=== PATIENT | male | born 1960 | race Caucasian/White ===

== ENCOUNTER 2017-07-29 09:52 | Inpatient (IN) | payer MEDICARE, OTHER, MEDICAID ==
[2017-07-29] MEDS ORDERED: Fentanyl 20 MCG/ML 0 ML ONE (09:54)
[2017-07-29] MEDS ORDERED: Fentanyl 100 MCG/2 ML VIAL ONE ×2 (09:55→10:30)
[2017-07-29] MEDS ORDERED: Lorazepam 2 MG/ML VIAL ONE ×2 (10:03→17:16)
[2017-07-29 10:24] LABS: #Basophils 0.1 thou/uL (0.0-0.2); #Lymphocytes 4.6 thou/uL (1.20-3.40); #Monocytes 2.2 thou/uL (0.11-0.59); #Neutrophils 12.8 thou/uL (1.40-6.50); %Basophils 0.7 % (0.0-1.0); %Eosinophils 0.2 % (0.0-10.0); %Lymphocytes 23.1 % (21.0-51.0); %Monocytes 11.1 % (0.0-10.0); Hematocrit 46.3 % (42.0-52.0); Mean Platelet Volume 6.8 fL (7.4-10.4); Red Blood Cell (RBC) Count 4.91 mill/uL (4.70-6.10); White Blood Cell (WBC) Count 19.7 thou/uL (4.8-10.8)
--- NOTE | 2017-07-29 10:27 | RAD ---
PORTABLE CHEST 1 VIEW: Date: 07/29/17 Time: 0926 hours HISTORY: Respiratory failure, dyspnea. FINDINGS/IMPRESSION: Comparison made with exam of 09/18/07. The heart size is borderline. The aorta is tortuous. There is an endotracheal tube with tip just abo ve the level of the clavicular heads. No pneumothoraces or large effusions are seen. There is a prob able infiltrate in the right lung base and the left mid lung. There is gaseous distention of the sto mach. POS: [facility]
[2017-07-29] MEDS ORDERED: cefTRIAXone\\ROCEPHIN 2 GM VIAL ONE (10:30)
[2017-07-29 10:43] LABS: Oxyhemoglobin 65.4 % (94.0-97.0); Sodium 145 mmol/L (135-148)
[2017-07-29 10:44] LABS: Mechanical Tidal Volume 500 ml; Modified Allen's Test NOT DONE; Vent YES
[2017-07-29 10:45] LABS: Mode SIMV
--- NOTE | 2017-07-29 10:50 | RAD ---
PORTABLE CHEST 1 VIEW: Date: 07/29/17 Time: 0953 hours HISTORY: Respiratory failure, sepsis. FINDINGS/IMPRESSION: Comparison made with earlier exam at 0926 hours. Endotracheal tube remains in place. There has been interval placement of a nasogastric tube which ca n be traced into the stomach with tip excluded from the film. There has been placement of a left sub clavian central line with tip in the projection of the SVC. No pneumothoraces are seen. The probable infiltrates in the left mid and lower lung zones are not definitely seen on the current exam. POS: [facility]
[2017-07-29 10:54] LABS: Lactic Acid - Sepsis 6.3 mmol/L (0.5-2.2)
[2017-07-29 10:58] LABS: ALT (SGPT) 21 U/L (8-55); AST (SGOT) 21 U/L (5-34); Alkaline Phosphatase 104 U/L (40-150); Anion Gap 17 mmol/L (10-20); BUN (Urea Nitrogen) 26 mg/dL (8.4-25.7); Bilirubin, Total 0.4 mg/dL (0.2-1.2); Calc. Creatinine Clearance 0 mL/min (70-130); Calcium 8.7 mg/dL (7.8-10.44); Carbon Dioxide 18 mmol/L (22-29); Chloride 110 mmol/L (98-107); Estimated GFR-MDRD 62; Globulin 2.5 g/dL (2.4-3.5); Protein, Total 6.4 g/dL (6.0-8.3)
[2017-07-29] MEDS ORDERED: Norepinephrine 8 MG/0.9% NS 250 ML ONE (10:59)
[2017-07-29] MEDS ORDERED: Cefepime 2 GM in Sodium Chloride 0.9% 100 ML IVPB SCH (11:00)
[2017-07-29 11:17] LABS: Bilirubin Negative (Negative); Blood, Urine Negative (Negative); Glucose, Urine (Dipstick) Negative (Negative); Ketone, Urine Negative (Negative); Nitrite Negative (Negative); Protein, Urine (Dipstick) Negative (Neg-Trace); Urobilinogen 0.2 mg/dL (0.2-1.0)
--- NOTE | 2017-07-29 12:18 | OP ---
DATE OF SERVICE: 07/29/2017 PROCEDURE PERFORMED: Fiberoptic bronchoscopy. PREOPERATIVE DIAGNOSIS: Severe hypoxemia secondary to aspiration a few particles with refractory hy poxemia. POSTOPERATIVE DIAGNOSIS: Severe hypoxemia secondary to aspiration a few particles with refractory h ypoxemia. ANESTHESIA: He received 100 mg succinylcholine prior to the procedure. DESCRIPTION OF PROCEDURE: Procedure was performed with an emergent basis for the hypoxemia. First, his endotracheal tube was changed out. He previously had a 7.0 endotracheal tube in which was not large enough to accommodate the bronchoscope. Using GlideScope for visualization, I have changes th is with an 8-0 endotracheal tube without difficulty. Tube was secured at 25 cm at the lip. A Penta x bronchoscope was then placed down the endotracheal tube through an adapter while the patient was o n 100% oxygen. There were copious food particles which look like oatmeal present in both left and r ight main stem bronchi. These were lavaged with saline and aspirated until no other food particles were visualized. There were no other significant findings noted in the bronchial tree bilaterally. He tolerated the procedure well.
[2017-07-29] MEDS ORDERED: Sedation Protocol FS SCH (12:24)
[2017-07-29] MEDS ORDERED: CCU Electrolyte Replacement 1 EACH FS SCH (12:24)
[2017-07-29] MEDS ORDERED: Vecuronium 10 MG VIAL IVP PRN (12:24)
[2017-07-29] MEDS ORDERED: Sodium Chloride 0.9% 1,000 ML IV SCH (12:24)
[2017-07-29] MEDS ORDERED: Potassium Phosphate 12 MMOL in Sodium Chloride 0.9% 250 ML 250 ML IV PRN (12:30)
[2017-07-29] MEDS ORDERED: CCU ELECTROLYTE REPLACEMENT PROTOCOL FS PRN (12:30)
[2017-07-29] MEDS ORDERED: Magnesium Oxide 400 MG TAB PO PRN (12:30)
[2017-07-29] MEDS ORDERED: Magnesium 2 GM/NS 0.9% 100 ML 2 GM in Premix Bag 1 BAG IVPB PRN (12:30)
[2017-07-29] MEDS ORDERED: Potassium Chloride 20 MEQ TAB PO PRN (12:30)
[2017-07-29] MEDS ORDERED: Potassium Chloride 40 MEQ in Premix Bag 1 BAG IVPB PRN (12:30)
[2017-07-29] MEDS ORDERED: Potassium Phosphate 15 MMOL in Sodium Chloride 0.9% 250 ML 250 ML IV PRN (12:30)
[2017-07-29] MEDS ORDERED: Potassium Phosphate 9 MMOL in Sodium Chloride 0.9% 100 ML IVPB PRN (12:30)
[2017-07-29] MEDS ORDERED: Potassium Chloride 40 MEQ in Sodium Chloride 0.9% 250 ML 250 ML IVPB PRN (12:30)
[2017-07-29] MEDS ORDERED: Morphine 2 MG/ML SYRINGE IVP PRN (12:31)
[2017-07-29] MEDS ORDERED: Lorazepam 2 MG/ML VIAL SLOW IVP PRN (12:31)
[2017-07-29] MEDS ORDERED: DISCONTINUE PREVIOUS NARCOTIC PAIN MEDICATIONS AND BENZODIAZEPINES FS SCH (12:31)
[2017-07-29] MEDS ORDERED: Fentanyl 20 MCG/ML 250 ML IVPB SCH (12:31)
--- NOTE | 2017-07-29 12:43 | CON ---
DATE OF CONSULTATION: 07/29/2017 This is 45 minutes critical care time not including time spent performing bronchoscopy. CONSULTING PHYSICIAN: [facility] Res[facility] Service. REASON FOR CONSULTATION: Critical care management. HISTORY OF PRESENT ILLNESS: The patient is a 56-year-old male who presented to the emergency room i n status epilepticus. He had been intubated in the field. He had aspirated gastric contents. He w as significantly hypoxemic and was requiring vasopressors for shock. PAST MEDICAL HISTORY: 1. Klinefelter syndrome. 2. Seizure disorder. 3. Pancreatic pseudocyst. 4. Hypospadias. 5. Venous stasis. 6. Arthritis. 7. Hyperlipidemia. 8. Hypothyroidism. 9. Mental retardation. PAST SURGICAL HISTORY: 1. Bilateral arthrodesis of the feet. 2. Pancreatic pseudocyst drainage. 3. Pancreatic cyst jejunostomy. ALLERGIES: LEVAQUIN. MEDICATIONS PRIOR TO ADMISSION: Unavailable for review at this time. FAMILY MEDICAL HISTORY: Remarkable for hypertension, mitral valve prolapse, ulcerative colitis, hyp ertension and coronary artery disease. SOCIAL HISTORY: Nonsmoker. Does not consume alcohol. He is unemployed. REVIEW OF SYSTEMS: Cannot be obtained as the patient is intubated. PHYSICAL EXAMINATION: VITAL SIGNS: Blood pressure running generally in the 90s over 50s, pulse 118, respirations 22 and O 2 sat 93% on 100% oxygen. GENERAL: The patient is a tall male. He was currently intubated and on some sedation. HEENT: Pupils react. Sclerae are anicteric. Oropharynx: He has dark gastric contents in the orop harynx, which had to be suctioned along with copious food particles. NECK: Without adenopathy, JVD or bruits. LUNGS: Coarse breath sounds bilaterally without wheezing. CARDIAC: S1, S2 tachycardic with a 2/6 systolic murmur. ABDOMEN: Soft. No hepatosplenomegaly. EXTREMITIES: No clubbing, cyanosis or edema. LABORATORY AND X-RAY FINDINGS: White blood cell count 19.7, hematocrit 46.3 and platelet count 201. PH of 7.09, pCO2 of 77, pO2 of 45 that was on SIMV rate 22, tidal volume 500, PEEP 5, pressure sup port 10 and FiO2 of 50%. Sodium 141, potassium 4.3, chloride 110, CO2 of 18, BUN 26, creatinine 1.2 , glucose 214 and lactate 6.3. CPK result is pending. Urinalysis was negative. Tox screen showed Dilantin level was 15. Chest x-ray showed bibasilar infiltrates on the first x-ray. ASSESSMENT: 1. Acute respiratory failure related to aspiration of gastric contents. 2. Aspiration pneumonitis. 3. Seizure disorder. 4. Klinefelter syndrome. 5. Multiple other medical problems as listed above. 6. Lactic acidosis, which is probably secondary to prolonged seizure episode. PLAN: 1. IV hydration. 2. Mechanical ventilation. 3. Broad spectrum IV antibiotics to include aspiration coverage. 4. Consider alkalizing IV fluids. The CPK is significantly elevated. 5. Would obtain Neurology consultation.
--- NOTE | 2017-07-29 13:13 | CT ---
HEAD CT WITHOUT CONTRAST: Date: 07-29-17 Comparison: 09-24-15 History: Intubated patient. Seizures. Fever. Technique: Serial axial CT imaging at 5 mm intervals from vertex through the skull base without cont rast. FINDINGS: There is marked diffuse calvarial thickening. Bilateral frontal sinuses are enlarged. There is mild mucosal thickening of bilateral ethmoid air cells. No acute osseous abnormality. There is no intracr anial hemorrhage, midline shift, of mass effect. No significant interval change. IMPRESSION: Stable head CT. No acute findings. POS: [facility]
[2017-07-29] MEDS: Piperacillin/Tazobactam 3.375 GM, Admixture Fee 1 EACH in Sodium Chloride 0.9% 100 ML IVPB SCH ×3 (13:30→23:16)
[2017-07-29] MEDS: SODIUM CHLORIDE IVPB SCH ×3 (13:31→23:09)
[2017-07-29] MEDS: ADMIXTURE FEE IVPB SCH ×3 (13:31→23:09)
[2017-07-29] MEDS: ASCORBIC ACID IVPB SCH ×3 (13:31→23:09)
[2017-07-29 14:58] LABS: Oxyhemoglobin 96.2 % (94.0-97.0)
[2017-07-29 14:59] LABS: Sodium 146 mmol/L (135-148)
[2017-07-29 15:00] LABS: Mechanical Tidal Volume 450 ml; Mode SIMV.PSV; Modified Allen's Test NOT DONE; Pressure Support 10 cmH2O; Vent YES
[2017-07-29] MEDS ORDERED: Sodium Chloride 0.9% 500 ML IV SCH ×2 (15:00→22:00)
[2017-07-29] MEDS: Norepinephrine 8 MG/0.9% NS 250 ML IVPB SCH ×2 (15:31→23:07)
[2017-07-29 15:44] LABS: Magnesium 1.4 mg/dL (1.6-2.6); Phosphorus 2.2 mg/dL (2.3-4.7)
[2017-07-29] MEDS: Propofol 1,000 MG/100 ML VIAL IV PRN (19:45)
[2017-07-29] MEDS: Magnesium Oxide 400 MG TAB PO PRN ×2 (19:57→23:04)
[2017-07-29] MEDS: Fosphenytoin Sodium 200 MG in Sodium Chloride 0.9% 50 ML IVPB SCH (20:00)
[2017-07-29] MEDS: Thiamine HCl 200 MG, Admixture Fee 1 EACH in Sodium Chloride 0.9% 50 ML IVPB SCH (20:07)
[2017-07-29 20:59] LABS: Lactic Acid - Sepsis 4.6 mmol/L (0.5-2.2)
[2017-07-29] MEDS: Vancomycin HCl 1 GM in Premix Bag 1 BAG IVPB SCH (21:19)
[2017-07-29] MEDS: Sodium Chloride 0.9% 1,000 ML IV SCH (22:18)
--- NOTE | 2017-07-29 23:40 | HP ---
DATE OF SERVICE: 07/29/2017 CHIEF COMPLAINT: Seizure. HISTORY OF PRESENT ILLNESS: The patient is a 56-year-old, male with a significant past medical history of Klinefelter syndrome, mental retardation, seizure disorder, hypothyroidism, and hyperlipidemia, who was brought to the ER via EMS for prolonged seizure. The patient began having a seizure about 25 minutes before EMS arrived to the house and was given IM Versed without improvement of the seizure. The patient was intubated en route and also had an IO catheter placed for access by EMS. The patient's sats never got above the low 80s in spite of intubation. He was noted to have an initial temperature of 105.3 rectally and initial blood pressure of 156/78. The patient was given rectal Tylenol and his temperature improved. The patient was known to aspirate during the seizure. Family noted that he had complained about being cold the night before, had no other significant symptoms. He is on Dilantin and follows with Dr. Mendez for his seizures. Once in the ER, the patient was given fluids. Dr. Prieto was consulted, who changed out his ET tube, and his sats improved into the low 90s. During changing of the ET tube, it was noted that he had gastric contents in his airway. Central line was placed and the patient was started on Levophed, has systolic blood pressures dropped down into the 70s , and the patient was tachycardic. The patient's initial white count was 19.7 and initial pH was 7.09. The patient is being admitted to the Intensive Care Unit for broad-spectrum antibiotics, septic shock and acute hypoxic respiratory failure with aspiration. For the complete history and physical exam, please see the resident's dictation. LABORATORY: 1. CBC: WBCs 19.7, hemoglobin 15.3, hematocrit 46.3, platelet count 201. 2. Initial ABG: A pH of 7.09, pCO2 of 77.1, pO2 of 45.6. 3. CMP: Sodium 141, potassium 4.3, chloride 110, bicarbonate 18, BUN 26, creatinine 1.21, glucose 214, calcium 8.7, total bilirubin 0.4, AST 21, ALT 21, alkaline phosphatase 104, total protein 6.4, albumin 3.9. 4. CK 93. 5. Phosphorus 2.2, mag 1.4. 6. Lactic acid 6.3. 7. Urinalysis unremarkable. 8. Phenytoin 15. IMAGIN. Chest x-ray showed a probable infiltrate in the right lung base and the left mid lung. 2. CT of the brain shows no acute findings. ASSESSMENT AND PLAN: 1. Acute hypoxic respiratory failure secondary to aspiration: The patient is intubated and med management will be per Pulmonology. The patient will be treated with broad spectrum antibiotics and fluids. We will repeat chest x- rays and follow his ABG. 2. Septic shock secondary to pneumonia and possible urinary tract infection: Patient has had blood and urine cultures. We have placed him on broad-spectrum antibiotics. Patient will be supported with IV fluids and pressors. We will try to wean as well as tolerated. 3. Aspiration pneumonitis: Treatment as mentioned above. 4. Status epilepticus: The patient's seizures have stopped. Dr. Mendez will be consulted. P.r.n. medications will be in place for further seizures. 5. Hypothyroidism: Check TSH. 6. Klinefelter syndrome. 7. Electrolyte abnormalities: We will replace mag and phos, we will continue to monitor these. Please see the resident's dictation for the full history and physical, assessment and plan. FERNANDO
[2017-07-30] MEDS: Propofol 1,000 MG/100 ML VIAL IV PRN ×5 (00:37→20:41)
[2017-07-30] MEDS ORDERED: Sodium Chloride 0.9% 1,000 ML IV SCH (02:00)
[2017-07-30] MEDS: Norepinephrine 8 MG/0.9% NS 250 ML IVPB SCH ×2 (04:16→13:53)
[2017-07-30] MEDS: Sodium Chloride 0.9% 1,000 ML IV SCH ×3 (04:18→17:47)
[2017-07-30] MEDS: SODIUM CHLORIDE IVPB SCH ×4 (05:09→23:41)
[2017-07-30] MEDS: ASCORBIC ACID IVPB SCH ×4 (05:09→23:41)
[2017-07-30] MEDS: ADMIXTURE FEE IVPB SCH ×4 (05:09→23:41)
[2017-07-30] MEDS: Piperacillin/Tazobactam 3.375 GM, Admixture Fee 1 EACH in Sodium Chloride 0.9% 100 ML IVPB SCH ×4 (05:10→23:43)
[2017-07-30 05:57] LABS: #Lymphocytes 1.5 thou/uL (1.20-3.40); #Monocytes 1.2 thou/uL (0.11-0.59); #Neutrophils 8.7 thou/uL (1.40-6.50); %Basophils 0.1 % (0.0-1.0); %Eosinophils 0.1 % (0.0-10.0); %Lymphocytes 12.9 % (21.0-51.0); %Monocytes 10.6 % (0.0-10.0); Hematocrit 40.8 % (42.0-52.0); White Blood Cell (WBC) Count 11.4 thou/uL (4.8-10.8)
--- NOTE | 2017-07-30 06:06 | HP-2 ---
DATE OF ADMISSION: 07/29/2017 CODE STATUS: FULL. PRIMARY CARE PHYSICIAN: Ashu Ramirez M.D. ATTENDING: Barbara Allison M.D. RESIDENT: Manjula Villela MD HISTORIAN: Mother and father. SPECIALISTS: Dr. Mendez is the patient's neurologist. CHIEF COMPLAINT: Seizure. HISTORY OF PRESENT ILLNESS: This is a 56-year-old male with past medical history of Klinefelter syndrome and seizure disorder, who presented by EMS after a seizure lasted about 40 minutes. The patient told his mom around 7:30 this morning that he did not feel well, his stomach hurts, and he felt cold all over, so he went to lie down on the couch. Shortly after that, he began having a seizure. His mom gave him 0.7 mg of midazolam which normally terminates his seizures; however, when it did not, she gave him a second dose. At this point, when his seizure did not resolve, she called the EMS. EMS gave him Versed and then they were concerned about aspiration, so they gave him rocuronium and etomidate and intubated him. In the ER, the patient was still having some seizure-like activity and was found to be hypotensive and had a temperature of 105.3 so he was given Ativan 2 mg x2, normal saline 30 mg/kg bolus, 1 gram of Tylenol, 50 mcg of fentanyl, 2 grams of cefepime, 100 mg of succinylcholine, 2 mcg per minute of Levophed, 2 grams of Rocephin, 1 g of vancomycin, and 50 mg of fentanyl. A left subclavian central line was placed. PAST MEDICAL HISTORY: 1. Klinefelter syndrome. 2. Seizure disorder. 3. Pancreatic pseudocyst. 4. Hypospadias. PAST SURGICAL HISTORY: Cystojejunostomy and Alberto-en-Y. ALLERGIES: 1. LEVAQUIN, GI upset. 2. RED DYE, hives. MEDICATIONS: 1. Lipitor 40 mg p.o. at bedtime. 2. Celebrex 200 mg p.o. daily. 3. Clobazam 10 mg p.o. at bedtime. 4. Docusate 240 mg p.o. at bedtime. 5. Folic acid 400 mcg p.o. daily. 6. Krill oil 100 mg p.o. daily. 7. Synthroid 100 mcg p.o. daily. 8. Midazolam 1 mL IV. 9. Multivitamin 1 each p.o. daily. 10. Phenytoin 100 mg take 2 capsules in the morning, 1 capsule at noon, 2 capsules in the evening. 11. MiraLax 17 grams p.o. daily. 12. Seroquel 25 mg p.o. b.i.d. 13. Effexor XR 37.5 mg p.o. daily. 14. Benefiber 2 tablespoons p.o. daily. 15. Zonegran 300 mg p.o. at bedtime. FAMILY HISTORY: Mother, hypertension, mitral valve prolapse, breast cancer, ulcerative colitis. Father, coronary artery disease, greater than 55 years old hypertension. SOCIAL HISTORY: Denies tobacco, alcohol, or drug use. Unmarried. REVIEW OF SYSTEMS: Unable to obtain as the patient is intubated and had been sedated. Parents denied any review of systems except those mentioned in the HPI. PHYSICAL EXAMINATION: VITAL SIGNS: Blood pressure 94/47, pulse 108, respiratory rate 28, temperature 105.3, pulse ox 92% on ventilator. Current weight 104 kilograms. GENERAL: Not alert or oriented, obese, not appropriately interactive. EYES: Pupils equal, round, reactive to light. ENT: Nasal mucosa and oropharynx within normal limits. Tubes in place in the mouth. NECK: Supple. No lymphadenopathy. CARDIOVASCULAR: Regular rate and rhythm. No murmurs or gallops, 2+ radial and pedal pulses. RESPIRATORY: Ventilated. No retractions. Clear to auscultation bilaterally. SKIN: Cold. No cyanosis. Stasis dermatitis on bilateral feet. ABDOMEN: Soft, nontender, normoactive bowel sounds. No mass or distention. EXTREMITIES: No clubbing, cyanosis, or edema. MUSCULOSKELETAL: Structure and tone within normal limits. PSYCHIATRIC: Not appropriate as the patient is unable to assess. LABORATORY DATA: WBC 19.7, hemoglobin 15.3, hematocrit 46.3, platelets 201. Sodium 141, potassium 4.3, chloride 110, CO2 18, BUN 26, creatinine 1.2, GFR 62 , glucose 214, calcium 8.7, total protein 6.4, albumin 3.9, total bilirubin 0.4 , AST 21, ALT 21, alkaline phosphatase 104. Lactic acid 6.3. CK 93. ABG: PH 7.09, pCO2 77.1, pO2 45.6, bicarbonate 22.8. Phenytoin 15. Chest x-ray, possible infiltrate in right lower base and left mid lung, gaseous distention of stomach. Infiltrates resolved on repeat chest x-ray. ASSESSMENT AND PLAN: This is a 56-year-old male who presents with: 1. Septic shock requiring Levophed despite 30 mg/kg fluid resuscitation. No source identified. The patient febrile to 105 on admission with a white count of 19.7, no left shift, or elevated neutrophils. Lactic acid elevation likely secondary to seizure. The patient has remained tachycardic and hypotensive. Levophed at 30. We will consider adding a second pressor at this point. Dr. Prieto has been consulted with Pulmonary, appreciate recommendations, vancomycin and Zosyn, and we will get blood cultures x2. We will add another 500 mL bolus. 2. Status epilepticus, now resolved status post Ativan, midazolam, Versed. The patient on phenytoin at home, level is therapeutic. Dr. Mendez is neurologist. We will have the patient follow up outpatient. 3. Aspiration. The patient had concern for aspiration by EMS. A bronchoscopy was done by Dr. Prieto in the ED revealed aspiration particles below the level of the ET tube. We will cover with vancomycin and Zosyn. We will keep intubated on a ventilator at least overnight. 4. Elevated lactic acid, likely secondary to seizure. We will trend a repeat in 6 hours. 5. Leukocytosis secondary to sepsis versus seizure. We will monitor. 6. Respiratory acidosis likely secondary to decreased ventilation and aspiration on ventilator. We will monitor. 7. Acute kidney injury. Got 4 liters normal saline in the ED. Giving 100 mL per hour of normal saline. We will give another 500 mL bolus and monitor. 8. Venous thromboembolism prophylaxis. Lovenox. DISPOSITION: Admit to ICU. Symptomatic medication will be provided. History and physical exam, as well as management, was discussed with Dr. Allison. FERNANDO
--- NOTE | 2017-07-30 06:59 | PDOC.FM ---
Addendum entered and electronically signed by Margaret Ramires MD 07/30/17 11:56: PPX: Lovenox and pepcid NPO status as OG tube still having small output on suction but will consult Dietitian and try to start tube feeds later today Original Note: - Subjective Subjective: Patient is overall improving overnight. He is now sedated on propofol and his blood pressure is tolerating it well. No concerns from agitation or vital sign standpoint from nursing or family. - Objective MAR Reviewed: Yes Vital Signs & Weight: Vital Signs (12 hours) Temp Pulse Resp Pulse Ox 07/30/17 06:00 10 L 07/30/17 04:00 99.4 F 24 H 07/30/17 02:10 94 26 H 95 07/30/17 02:00 25 H 07/30/17 00:00 98.7 F 07/29/17 23:33 25 H 07/29/17 22:00 26 H 07/29/17 21:34 107 H 32 H 94 L 07/29/17 20:00 98 F 107 H 32 H 92 L 07/29/17 19:00 98.9 F Weight Weight 110.2 kg Most Recent Monitor Data Heart Rate from ECG 96 NIBP 127/63 NIBP BP-Mean 76 Respiration from ECG 3 SpO2 98 I&O: 07/28/17 07/29/17 07/30/17 06:59 06:59 06:59 Intake Total 5880 Output Total 1875 Balance 4005 Result Diagrams: 07/30/17 01:10 07/30/17 05:40 EKG Reviewed by me: Yes Radiology Reviewed by me: Yes <Margaret Ramires - Last Filed: 07/30/17 11:33> - Objective Vital Signs & Weight: Vital Signs (12 hours) Temp Pulse Resp Pulse Ox 07/30/17 14:00 24 H 07/30/17 13:27 98 07/30/17 12:00 24 H 07/30/17 11:52 99.4 F 07/30/17 11:17 99 07/30/17 11:15 97 24 H 98 07/30/17 10:00 24 H 07/30/17 08:00 24 H 07/30/17 07:45 100.7 F H 94 24 H 97 07/30/17 07:25 94 07/30/17 07:00 100.7 F H 07/30/17 06:00 10 L 07/30/17 04:00 99.4 F 24 H Weight Admit Weight 109.769 kg Weight 110.2 kg Most Recent Monitor Data Heart Rate from ECG 90 NIBP 89/52 NIBP BP-Mean 64 Respiration from ECG 24 SpO2 98 I&O: 07/29/17 07/30/17 07/31/17 06:59 06:59 06:59 Intake Total 5880 Output Total 0183 549 Balance 4005 -549 Result Diagrams: 07/30/17 01:10 07/30/17 05:40 <Mukund Rogers - Last Filed: 07/30/17 15:25> Phys Exam - Physical Examination Constitutional: NAD sedated on propofol HEENT: PERRLA, moist MMs, sclera anicteric Neck: no nodes Respiratory: no wheezing, clear to auscultation bilateral Cardiovascular: RRR faint systolic murmur Gastrointestinal: soft, non-tender, no distention, positive bowel sounds Musculoskeletal: no edema, pulses present Neurological: non-focal sedated, PERRL Lymphatic: no nodes Skin: no rash Deviation from normal: darkening of skin likely related to venous insufficiency noted on BLE, L>R -: present on admission and no change at this time <Margaret Ramires - Last Filed: 07/30/17 11:33> Dx/Plan (1) Septic shock Code(s): A41.9 - SEPSIS, UNSPECIFIED ORGANISM; R65.21 - SEVERE SEPSIS WITH SEPTIC SHOCK Status: Acute (2) Epilepsy symptomatic, generalized Code(s): G40.409 - OTH GENERALIZED EPILEPSY, NOT INTRACTABLE, W/O STAT EPI Status: Chronic (3) Hyperlipidemia Code(s): E78.5 - HYPERLIPIDEMIA, UNSPECIFIED Status: Chronic (4) Hypothyroidism Code(s): E03.9 - HYPOTHYROIDISM, UNSPECIFIED Status: Chronic (5) Klinefelter syndrome Code(s): Q98.4 - KLINEFELTER SYNDROME, UNSPECIFIED Status: Chronic (6) Acute kidney injury Code(s): N17.9 - ACUTE KIDNEY FAILURE, UNSPECIFIED Status: Acute (7) Constipation Code(s): K59.00 - CONSTIPATION, UNSPECIFIED Status: Chronic - Plan Plan: 1. Septic shock - At this time, confusing picture as patient had pulmonary infiltrate on admission which quickly resolved - Possible viral infection lowered seizure threshold and patient subsequently had prolonged seizure leading to fever and hemodynamic instability. Appreciate Dr. Mendiola's input on whether LP is indicated at this time. Patient complaining of abdominal pain morning of admission, no other symptoms. - Vitals improving and stable overnight on downtrending Levophed, now at 15 mcg/ min - s/p 4L NS bolus in ER and total of 2L overnight with smaller boluses - UOP adequate, > 100 mL/hr overnight - I/O 5880/1875 - Treated as CAP at this time and monitoring for other signs of infection - Blood and urine cultures pending - Vanc (07/30) and Zosyn (07/30) - NS now at 100 mL/hr - WBC downtrending, increase in neutrophil predominance today - Lactic acidosis now downtrending - AM ABG still mild acidosis, likely predominately metabolic at this time - KUB this morning and will consider CT A/P pending results, serial abdominal exams and bowel movements 2. Seizure disorder - Unclear from records if partial seizures or grand mal - Will notify Dr. Mendez, patient's neurologist, of admission - Dilantin level therapeutic, continue IV tx of home regimen - Appreciate Dr. Mendiola's assistance 3. Klinefelter's Syndrome - Patient has moderate intellectual disability and short term memory loss at baseline - He is able to communicate basic needs and participate in his care but requires time study observer caregiver at baseline 4. HLD - Holding statin at this time - Resume when tolerating PO 5. Hypothyroidism - TSH WNL - Holding levothyroxine at this time but will resume IV within 5 days of admission if not tolerating PO 6. Acute Kidney Injury - BUN/CR > 20 on admission, likely prerenal - Improving with fluid resuscitation <Margaret Ramires - Last Filed: 07/30/17 11:33> Attending Addendum - Attending Addendum I personally evaluated the patient and discussed the management with Dr. Ramires. I agree with the History, Examination, Assessment and Plan documented above with any addition or exceptions noted below. Consideration for LP was given, but it would not change current management, and there was no history to suggest viral or bacterial meningitis prior to seizure and aspiration. Continue antibiotics, wean pressor, wean from sedation and vent. Neuro consult pending. Appreciate Dr Prieto's care and expertise. <Mukund Rogers - Last Filed: 07/30/17 15:25>
[2017-07-30 07:45] LABS: Anion Gap 15 mmol/L (10-20); BUN (Urea Nitrogen) 23 mg/dL (8.4-25.7); Calc. Creatinine Clearance 125 mL/min (70-130); Calcium 7.3 mg/dL (7.8-10.44); Carbon Dioxide 16 mmol/L (22-29); Chloride 116 mmol/L (98-107); Estimated GFR-MDRD 74
[2017-07-30 07:47] LABS: Oxyhemoglobin 90.5 % (94.0-97.0)
[2017-07-30 07:48] LABS: Mechanical Tidal Volume 450 ml; Mode SIMV; Peep/CPAP 12.5 cmH2O; Pressure Support 10 cmH2O; Sodium 145 mmol/L (135-148); Vent YES
--- NOTE | 2017-07-30 08:21 | PRG ---
DATE OF SERVICE: 07/30/2017 Thirty-five minutes critical care time. The patient remains intubated on mechanical ventilation. PHYSICAL EXAMINATION: VITAL SIGNS: His temperature 100.7 with temperature as high as 105 yesterday, pulse 97, blood press ure 103/55, O2 saturation 96%, respiratory rate 24. He is currently on Levophed at 15 mcg per minut e. Total intake for 24 hours 5880, output 1875. HEENT: Pupils react. Oropharynx, endotracheal tube and orogastric tube in place. NECK: No JVD. LUNGS: Fairly clear anteriorly. CARDIOVASCULAR: S1, S2 regular. ABDOMEN: Soft, without tenderness. EXTREMITIES: No edema. LABORATORY DATA: White blood cell count 11.4 down from 19.7, hematocrit 40.8, platelet count 158, p H 7.26, pCO2 41, pO2 58 on SIMV rate 20, tidal volume 450, PEEP 12.5, pressure support 10, FiO2 65%. Chemistry result is pending. Lactate is 4.8. ASSESSMENT: 1. Septic shock. 2. Acute respiratory failure. 3. Aspiration pneumonia. 4. Status epilepticus. 5. Mental retardation. 6. Klinefelter's syndrome. PLAN: 1. He is not weanable at this time secondary to hypoxemia. 2. Wean vasopressor as tolerated. 3. Continue the IV antibiotics. 4. Continue vitamin C, hydrocortisone and Thiamine. 5. Update parents later today.
[2017-07-30] MEDS: Vancomycin HCl 1 GM in Premix Bag 1 BAG IVPB SCH ×2 (09:27→20:32)
[2017-07-30] MEDS: Thiamine HCl 200 MG, Admixture Fee 1 EACH in Sodium Chloride 0.9% 50 ML IVPB SCH ×2 (09:28→20:30)
[2017-07-30] MEDS: Fosphenytoin Sodium 200 MG in Sodium Chloride 0.9% 50 ML IVPB SCH ×2 (09:28→20:30)
--- NOTE | 2017-07-30 09:53 | RAD ---
ABDOMEN TWO VIEWS: History: 56-year-old male with abdomen pain. FINDINGS: NG tube extends into the stomach. Minimal parenchymal changes noted in the visualized lung bases. Th ere are a few scattered air fluid level but no evidence for overt large or small bowel obstruction. There is no evidence for free intraperitoneal air. There is a possible minimally dilated focal small bowel loop with an air fluid level. This could raise the possibility of some focal partial small gerald wel obstruction. IMPRESSION: NG tube in place. There is one loop of bowel with air fluid level within it within the central abdom en which could be a focally dilated loop of small bowel which would raise concern for the possibilit y of a partial small bowel obstruction. No evidence for free intraperitoneal air. Bilateral patchy i nterstitial and alveolar pulmonary and parenchymal changes in the visualized lung zones. POS: [facility]
[2017-07-30] MEDS: Fosphenytoin Sodium 100 MG in Sodium Chloride 0.9% 50 ML IVPB SCH (11:44)
[2017-07-30] MEDS ORDERED: Fosphenytoin Sodium 100 MG in Sodium Chloride 0.9% 50 ML IVPB SCH (12:00)
[2017-07-30] MEDS ORDERED: Mineral Oil ENEMA PR SCH (18:15)
[2017-07-30 20:16] LABS: Lactic Acid - Sepsis 2.1 mmol/L (0.5-2.2)
--- NOTE | 2017-07-31 00:22 | CON ---
DATE OF CONSULTATION: 07/30/2017 REFERRING PROVIDER: Dr. Margaret Ramires. REASON FOR CONSULTATION: Recurrent seizures. HISTORY OF PRESENT ILLNESS: Mr. Bryson is a 56-year-old male with a history of Klinefelte r syndrome and epilepsy, presented with recurrent seizures. [facility] is [facility] as there are no family member present at bedside. As mentioned earlier, patient has a his tory of Klinefelter syndrome and epilepsy. He has been managed by Dr. Kale Mendez for his seizure disorder. He is currently on zonisamide 300 mg at bedtime, Dilantin 200 mg twice a day and clobazam 10 mg at bedtime. He apparently had called his mother around 7:30 yesterday morning and complained that he did not fee l well and he felt cold all over and he was having stomachache. When she went to go check on him, s he noticed that he started having seizure. She gave him 0.7 mg midazolam which usually helps to ter minate his seizures; however, as it did not, she gave him another dose and called EMS. On arrival t o the EMS, the patient was noted to be hypotensive and had a fever of 105.3. He had to be intubated on site to protect his airways and then brought over here. He continued to have small seizure-like episodes intermittently on yesterday evening and night. I am being asked to further provide recomm endations for his seizures. PAST MEDICAL HISTORY: Significant for a history of Klinefelter syndrome, seizure disorder, pancreat ic pseudocyst and hypospadias. PAST SURGICAL HISTORY: Significant for cystojejunostomy and Alberto-en-Y. CURRENT MEDICATIONS: Please review MAR. ALLERGIES: Include LEVAQUIN AND RED DYE. FAMILY HISTORY: None contributory. SOCIAL HISTORY: He does not smoke cigarettes, drink alcohol, or use illicit drugs. REVIEW OF SYSTEMS: Unable to obtain. PHYSICAL EXAMINATION: VITAL SIGNS: Blood pressure of 99/58, pulse of 103, temperature of 100.5, respirations of 24, O2 sa ts of 98%. GENERAL: Intubated, sedated male in no apparent distress. RESPIRATORY: Clear to auscultation, without contrast. CARDIOVASCULAR: Regular rate and rhythm. NEUROLOGIC: Mental status: The patient is intubated and sedated. He does not respond to verbal or noxious stimuli. Cranial nerves: Pupils are 3 mm and reactive. He does breathe over the ventilat or machine. There is a positive corneal reflexes present bilaterally. Motor exam showed flaccid bi lateral upper and lower extremities, no response to sternal rub or nail bed pressure in both upper a nd lower extremities. Babinski: Plantar responses equivocal bilaterally. LABORATORY DATA: I reviewed which included CBC, BMP, lactic acid, CPK, urinalysis and Dilantin leve l which is significant for WBC of 11.4, hemoglobin 13.6, hematocrit 40.8, glucose of 217, lactic aci d of 3.8, magnesium 1.2. Dilantin level 11.8, otherwise unremarkable. IMAGING STUDIES: CT head without contrast was reviewed, which showed no acute intracranial abnormal ity. IMPRESSION: 1. Recurrent seizures. 2. History of Klinefelter syndrome. 3. Fever of unknown origin. ASSESSMENT AND PLAN: Mr. Bryson is a 56-year-old male with a history of Klinefelter syndr ome and seizure disorder, presented with the recurrent seizures. He was also noted to have a very h igh grade fever with sepsis. At this time, I will recommend continuing current antiepileptic medica tions. I would recommend obtaining a lumbar puncture under fluoroscopy. I will recommend obtaining CSF glucose, protein, cell count and differentials, Gram stain culture for further evaluation. Ramses gaytan current medical management. Thank you for the consultation.
[2017-07-31] MEDS: Propofol 1,000 MG/100 ML VIAL IV PRN ×4 (02:45→22:37)
[2017-07-31 04:10] LABS: Lactic Acid - Sepsis 1.2 mmol/L (0.5-2.2)
[2017-07-31 04:14] LABS: Anion Gap 7 mmol/L (10-20); BUN (Urea Nitrogen) 22 mg/dL (8.4-25.7); Calc. Creatinine Clearance 146 mL/min (70-130); Calcium 8.1 mg/dL (7.8-10.44); Carbon Dioxide 23 mmol/L (22-29); Chloride 121 mmol/L (98-107); Estimated GFR-MDRD 89; Magnesium 1.9 mg/dL (1.6-2.6)
[2017-07-31 04:24] LABS: #Lymphocytes 1.9 thou/uL (1.20-3.40); #Monocytes 0.9 thou/uL (0.11-0.59); #Neutrophils 7.9 thou/uL (1.40-6.50); %Basophils 0.2 % (0.0-1.0); %Eosinophils 0.1 % (0.0-10.0); %Lymphocytes 17.2 % (21.0-51.0); %Monocytes 8.8 % (0.0-10.0); Hematocrit 32.1 % (42.0-52.0); Mean Platelet Volume 6.9 fL (7.4-10.4); Red Blood Cell (RBC) Count 3.47 mill/uL (4.70-6.10); White Blood Cell (WBC) Count 10.7 thou/uL (4.8-10.8)
[2017-07-31] MEDS: Piperacillin/Tazobactam 3.375 GM, Admixture Fee 1 EACH in Sodium Chloride 0.9% 100 ML IVPB SCH ×3 (05:07→16:45)
[2017-07-31] MEDS: SODIUM CHLORIDE IVPB SCH ×3 (05:08→16:45)
[2017-07-31] MEDS: ADMIXTURE FEE IVPB SCH ×3 (05:08→16:45)
[2017-07-31] MEDS: ASCORBIC ACID IVPB SCH ×3 (05:08→16:45)
--- NOTE | 2017-07-31 06:13 | PDOC.FM ---
- Subjective Subjective: Improving this morning. He is off pressors, intermittently following commands and making purposeful movements when sedation is decreased. - Objective MAR Reviewed: Yes Vital Signs & Weight: Vital Signs (12 hours) Temp Pulse Resp Pulse Ox 07/31/17 06:00 0 L 07/31/17 04:00 98.7 F 07/31/17 03:34 0 L 07/31/17 02:24 87 24 H 100 07/31/17 02:00 0 L 07/31/17 00:00 100.7 F H 07/30/17 23:56 0 L 07/30/17 22:00 0 L 07/30/17 21:56 96 24 H 100 07/30/17 19:19 100.2 F H 100 24 H 98 07/30/17 19:07 0 L 07/30/17 19:00 100.2 F H 07/30/17 18:48 103 H 24 H 98 Weight Admit Weight 109.769 kg Weight 113.8 kg Most Recent Monitor Data Heart Rate from ECG 83 NIBP 92/52 NIBP BP-Mean 63 Respiration from ECG 24 SpO2 100 I&O: 07/29/17 07/30/17 07/31/17 06:59 06:59 06:59 Intake Total 5880 3738 Output Total 1875 1264 Balance 4005 8034 Result Diagrams: 07/31/17 03:30 07/31/17 03:30 EKG Reviewed by me: Yes Radiology Reviewed by me: Yes <Margaret Ramires - Last Filed: 07/31/17 08:54> - Objective Vital Signs & Weight: Vital Signs (12 hours) Temp Pulse Resp BP Pulse Ox 07/31/17 12:00 99.0 F 18 07/31/17 11:25 73 88/59 L 07/31/17 11:23 72 18 99 07/31/17 10:00 18 07/31/17 08:00 99.0 F 80 18 100 07/31/17 07:09 85 105/46 L 07/31/17 07:06 83 24 H 99 07/31/17 07:00 99.0 F 07/31/17 06:00 0 L 07/31/17 04:00 98.7 F 07/31/17 03:34 0 L 07/31/17 02:24 87 24 H 100 07/31/17 02:00 0 L Weight Admit Weight 109.769 kg Weight 113.8 kg Most Recent Monitor Data Heart Rate from ECG 85 NIBP 97/54 NIBP BP-Mean 69 Respiration from ECG 18 SpO2 99 I&O: 07/30/17 07/31/17 08/01/17 06:59 06:59 06:59 Intake Total 5880 3738 Output Total 1875 1264 270 Balance 4005 2474 -270 Result Diagrams: 07/31/17 03:30 07/31/17 03:30 <Mukund Rogers - Last Filed: 07/31/17 13:02> Phys Exam - Physical Examination Constitutional: NAD comfortable on sedation and making purposeful movements on sedation holiday HEENT: PERRLA, moist MMs, sclera anicteric Neck: no JVD no carotid bruits Respiratory: no wheezing, clear to auscultation bilateral Cardiovascular: RRR, no significant murmur Gastrointestinal: soft, non-tender, no distention, positive bowel sounds Musculoskeletal: pulses present trace BL LE edema to lower granados Neurological: non-focal, moves all 4 limbs Psychiatric: normal affect Skin: no rash Deviation from normal: skin darkening on BLE, stable since admission <Margaret Ramires - Last Filed: 07/31/17 08:54> Dx/Plan (1) Septic shock Code(s): A41.9 - SEPSIS, UNSPECIFIED ORGANISM; R65.21 - SEVERE SEPSIS WITH SEPTIC SHOCK Status: Acute (2) Epilepsy symptomatic, generalized Code(s): G40.409 - OTH GENERALIZED EPILEPSY, NOT INTRACTABLE, W/O STAT EPI Status: Chronic (3) Hyperlipidemia Code(s): E78.5 - HYPERLIPIDEMIA, UNSPECIFIED Status: Chronic (4) Hypothyroidism Code(s): E03.9 - HYPOTHYROIDISM, UNSPECIFIED Status: Chronic (5) Klinefelter syndrome Code(s): Q98.4 - KLINEFELTER SYNDROME, UNSPECIFIED Status: Chronic (6) Acute kidney injury Code(s): N17.9 - ACUTE KIDNEY FAILURE, UNSPECIFIED Status: Acute (7) Constipation Code(s): K59.00 - CONSTIPATION, UNSPECIFIED Status: Chronic - Plan Plan: 1. Septic shock - At this time, confusing picture as patient had pulmonary infiltrate on admission which quickly resolved - Possible viral infection lowered seizure threshold and patient subsequently had prolonged seizure leading to fever and hemodynamic instability. Appreciate Dr. Mendiola's input. Initial plan for LP this morning but with continued improvement, his parents who are his manager multimedia caregivers desire to hold off on LP at this time. They are understanding it may be indicated if he decompensates at all. Patient complaining of abdominal pain morning of admission, no other symptoms. No BM to date with known history of constipation. No abdominal distention and +BS in all quadrants. - Vitals improving and stable overnight with 1 isolated temp of 100.7 at midnight. Levophed discontinued. - s/p 4+2L fluid resuscitation - UOP adequate - Treated as CAP at this time and monitoring for other signs of infection - Blood and urine cultures pending - Vanc (07/30) and Zosyn (07/30) - NS now at 100 mL/hr - WBC downtrending - Lactic acidosis resolved - AM ABG pending - Will initiate tube feeds and work on weaning ventilator today 2. Seizure disorder - Unclear from records if partial seizures or grand mal - Notified Dr. Mendez, patient's neurologist, of admission - Dilantin level therapeutic, continue IV tx of home regimen - Appreciate Dr. Mendiola's assistance 3. Klinefelter's Syndrome - Patient has moderate intellectual disability and short term memory loss at baseline - He is able to communicate basic needs and participate in his care but requires manager multimedia caregiver at baseline 4. HLD - Holding statin at this time - Resume when tolerating PO 5. Hypothyroidism - TSH WNL - Holding levothyroxine at this time but will resume IV within 5 days of admission if not tolerating PO 6. Acute Kidney Injury - Resolved 7. Constipation - s/p enema with no subsequent BM - Patient on daily Miralax and Colace at home - Will resume home regimen with tube feeds PPX: Lovenox and pepcid <Margaret Ramires - Last Filed: 07/31/17 08:54> Attending Addendum - Attending Addendum I personally evaluated the patient and discussed the management with Dr. Ramires. I agree with the History, Examination, Assessment and Plan documented above with any addition or exceptions noted below. Seferino is slowly improving. Appreciate Neuro and Pulmonology care and expertise. <Mukund Rogers - Last Filed: 07/31/17 13:02>
[2017-07-31] MEDS: Sodium Chloride 0.9% 1,000 ML IV SCH (06:24)
[2017-07-31 07:29] LABS: Oxyhemoglobin 97.2 % (94.0-97.0); Sodium 144 mmol/L (135-148)
--- NOTE | 2017-07-31 08:07 | PRG ---
DATE OF SERVICE 07/31/2017 Mr. Bryson remains in the CCU on mechanical ventilation. He has done well overnight. The Levophed has been weaned off. The had his sedation turned off this morning and his mental status is being as sessed. PHYSICAL EXAMINATION: VITAL SIGNS: Temperature 99.0 with a T-max of 100.7, pulse 85, blood pressure 105/46, 24-hour inta ke 3738, output was 1264. HEENT: Unremarkable. NECK: No JVD. LUNGS: Fairly clear without wheezing. CARDIOVASCULAR: S1, S2 regular. ABDOMEN: Soft. Bowel sounds quiet. EXTREMITIES: No clubbing, cyanosis. He has trace edema. LABORATORY DATA: White blood cell count 10.7, hematocrit 32.1, platelet count 116. ABG; pH 7.42, p CO2 28, pO2 140, that is on SIMV rate 24, tidal volume 450, PEEP 12.5, pressure support 10, FiO2 50% . Cultures show no growth to date. Chest x-ray shows right lower lobe infiltrate. ASSESSMENT: 1. Acute respiratory failure requiring mechanical ventilation. 2. Aspiration pneumonia. 3. Status epilepticus at the time of admission. 4. Mental retardation. 5. Septic shock which is resolving. 6. Klinefelter's syndrome. PLAN: 1. Begin weaning PEEP, FiO2 common and respiratory rate. 2. Continue the IV antibiotics. 3. Consider starting low dose tube feeds after lumbar puncture today. 4. Hopefully, can wean and extubate over the next 24-48 hours.
--- NOTE | 2017-07-31 08:42 | RAD ---
PORTABLE CHEST: Date: 07/31/17 HISTORY: Dyspnea. CCU follow-up. COMPARISON: 07/29/17. FINDINGS: There are bilateral infiltrates seen in the mid and lower lung stokes bilaterally. These infiltrates are more prominent today than on the prior study. ET tube, NG tube, and central line are unchanged. IMPRESSION: Bilateral mid and lower lung alveolar infiltrates are more prominent today. POS: [facility]
[2017-07-31] MEDS ORDERED: Docusate Sodium 10 MG/1 ML Oral Suspension PO SCH (09:00)
[2017-07-31] MEDS ORDERED: Famotidine/PF 20 mg/2ml Vial SLOW IVP SCH (09:00)
[2017-07-31] MEDS ORDERED: Vancomycin HCl 1.75 GM in Sodium Chloride 0.9% 500 ML IVPB SCH (09:00)
[2017-07-31 09:39] LABS: Vancomycin, Trough 13.2 ug/mL
[2017-07-31 09:47] LABS: Hemoglobin A1c 5.2 % (4.0-6.0)
[2017-07-31] MEDS: Enoxaparin Sodium 40 MG/0.4 ML SYRINGE SC SCH (10:31)
[2017-07-31] MEDS: Famotidine/PF 20 mg/2ml Vial SLOW IVP SCH ×2 (10:32→21:00)
[2017-07-31] MEDS: Thiamine HCl 200 MG, Admixture Fee 1 EACH in Sodium Chloride 0.9% 50 ML IVPB SCH ×2 (10:32→21:01)
[2017-07-31] MEDS: Fosphenytoin Sodium 200 MG in Sodium Chloride 0.9% 50 ML IVPB SCH ×2 (10:32→21:00)
[2017-07-31] MEDS: Polyethylene Glycol 3350 17 GM Packet PER TUBE SCH (10:32)
[2017-07-31] MEDS: Vancomycin HCl 1 GM in Premix Bag 1 BAG IVPB SCH (10:34)
[2017-07-31] MEDS: Sodium Chloride 0.45% 1,000 ML IV SCH ×3 (11:58→22:38)
[2017-07-31 12:58] LABS: Mechanical Tidal Volume 500 ml; Mode SIMV.PSV; Modified Allen's Test POSITIVE; Peep/CPAP 12.5 cmH2O; Pressure Support 10 cmH2O; Vent YES
[2017-07-31] MEDS: Vancomycin HCl 1.25 GM in Sodium Chloride 0.9% 250 ML 250 ML IVPB SCH (14:20)
[2017-07-31] MEDS: Atorvastatin Calcium 40 MG TAB PO SCH (21:00)
[2017-07-31] MEDS: Docusate Sodium 100 MG/10 ML UDCUP PO SCH (21:00)
[2017-07-31] MEDS: Zonisamide 100 MG CAP PO SCH (21:03)
[2017-08-01] MEDS: Piperacillin/Tazobactam 3.375 GM, Admixture Fee 1 EACH in Sodium Chloride 0.9% 100 ML IVPB SCH ×4 (00:16→17:17)
[2017-08-01] MEDS: ADMIXTURE FEE IVPB SCH ×4 (00:23→17:17)
[2017-08-01] MEDS: SODIUM CHLORIDE IVPB SCH ×4 (00:23→17:17)
[2017-08-01] MEDS: ASCORBIC ACID IVPB SCH ×4 (00:23→17:17)
[2017-08-01] MEDS: Vancomycin HCl 1.25 GM in Sodium Chloride 0.9% 250 ML 250 ML IVPB SCH (02:09)
[2017-08-01 04:42] LABS: #Lymphocytes 1.6 thou/uL (1.20-3.40); #Monocytes 0.5 thou/uL (0.11-0.59); #Neutrophils 8.4 thou/uL (1.40-6.50); %Basophils 0.1 % (0.0-1.0); %Eosinophils 0.1 % (0.0-10.0); %Monocytes 4.9 % (0.0-10.0); Anion Gap 8 mmol/L (10-20); BUN (Urea Nitrogen) 18 mg/dL (8.4-25.7); Calc. Creatinine Clearance 174 mL/min (70-130); Carbon Dioxide 23 mmol/L (22-29); Chloride 119 mmol/L (98-107); Estimated GFR-MDRD Greater than 90; Hematocrit 33.5 % (42.0-52.0); Red Blood Cell (RBC) Count 3.53 mill/uL (4.70-6.10); White Blood Cell (WBC) Count 10.5 thou/uL (4.8-10.8)
[2017-08-01] MEDS: Propofol 1,000 MG/100 ML VIAL IV PRN ×4 (05:02→21:51)
--- NOTE | 2017-08-01 06:00 | PDOC.FM ---
- Subjective Subjective: Continuing to improve this morning. Spontaneously moving all extremities on light sedation. Will intermittently follow commands. - Objective MAR Reviewed: Yes Vital Signs & Weight: Vital Signs (12 hours) Temp Pulse Resp BP Pulse Ox 08/01/17 04:00 98.7 F 18 08/01/17 02:43 74 109/64 08/01/17 02:40 73 18 97 08/01/17 02:00 18 08/01/17 00:00 99.0 F 18 07/31/17 22:43 78 124/72 07/31/17 22:41 78 18 98 07/31/17 22:00 18 07/31/17 20:00 98.2 F 78 23 H 95 07/31/17 18:51 70 142/82 H 07/31/17 18:48 70 18 98 07/31/17 18:00 18 Weight Admit Weight 109.769 kg Weight 115.6 kg Most Recent Monitor Data Heart Rate from ECG 80 NIBP 118/64 NIBP BP-Mean 72 Respiration from ECG 18 SpO2 97 I&O: 07/30/17 07/31/17 08/01/17 06:59 06:59 06:59 Intake Total 5880 3738 4546 Output Total 1875 1264 1585 Balance 4005 7524 3311 Result Diagrams: 08/01/17 04:05 08/01/17 04:05 EKG Reviewed by me: Yes Radiology Reviewed by me: Yes <Margaret Ramires - Last Filed: 08/01/17 08:36> - Objective Vital Signs & Weight: Vital Signs (12 hours) Temp Pulse Resp BP Pulse Ox 08/01/17 19:31 74 08/01/17 19:30 75 15 95 08/01/17 18:00 18 08/01/17 16:00 98.5 F 18 97 08/01/17 14:27 72 111/67 08/01/17 14:26 72 21 H 98 08/01/17 14:00 18 08/01/17 12:00 98.9 F 15 08/01/17 10:58 73 116/64 08/01/17 10:52 75 16 98 08/01/17 10:00 19 Weight Admit Weight 109.769 kg Weight 115.6 kg Most Recent Monitor Data Heart Rate from ECG 78 NIBP 111/59 NIBP BP-Mean 70 Respiration from ECG 18 SpO2 97 I&O: 07/31/17 08/01/17 08/02/17 06:59 06:59 06:59 Intake Total 3738 4546 2652 Output Total 1264 1760 4500 Balance 2470 6878 -5834 Result Diagrams: 08/01/17 04:05 08/01/17 04:05 <KenMukund A - Last Filed: 08/01/17 20:16> Phys Exam - Physical Examination Constitutional: NAD HEENT: moist MMs, sclera anicteric Neck: no JVD Respiratory: no wheezing crackles in LLL field Cardiovascular: RRR, no significant murmur Gastrointestinal: soft, non-tender trace edema in BUE and BLE to ankles and wrists Neurological: non-focal, moves all 4 limbs on propofol sedation, PERRL Skin: no rash, cap refill <2 seconds <Margaret Ramires - Last Filed: 08/01/17 08:36> Dx/Plan (1) Septic shock Code(s): A41.9 - SEPSIS, UNSPECIFIED ORGANISM; R65.21 - SEVERE SEPSIS WITH SEPTIC SHOCK Status: Acute (2) Epilepsy symptomatic, generalized Code(s): G40.409 - OTH GENERALIZED EPILEPSY, NOT INTRACTABLE, W/O STAT EPI Status: Chronic (3) Hyperlipidemia Code(s): E78.5 - HYPERLIPIDEMIA, UNSPECIFIED Status: Chronic (4) Hypothyroidism Code(s): E03.9 - HYPOTHYROIDISM, UNSPECIFIED Status: Chronic (5) Klinefelter syndrome Code(s): Q98.4 - KLINEFELTER SYNDROME, UNSPECIFIED Status: Chronic (6) Acute kidney injury Code(s): N17.9 - ACUTE KIDNEY FAILURE, UNSPECIFIED Status: Acute (7) Constipation Code(s): K59.00 - CONSTIPATION, UNSPECIFIED Status: Chronic - Plan Plan: 1. Septic shock, improving - At this time, confusing picture as patient had pulmonary infiltrate on admission which quickly resolved - Possible viral infection lowered seizure threshold and patient subsequently had prolonged seizure leading to fever and hemodynamic instability. Appreciate Dr. Mendiola's input. Initial plan for LP but with continued improvement, his parents who are his manager scientific caregivers desire to hold off on LP at this time. They are understanding it may be indicated if he decompensates at all. Patient complaining of abdominal pain morning of admission, no other symptoms. No BM to date with known history of constipation but passing flatus regularly. No abdominal distention and +BS in all quadrants. - Vitals stable, afebrile in last 24h - s/p 4+2L fluid resuscitation + maintenance fluids - UOP adequate - Treated as CAP at this time and monitoring for other signs of infection - Blood cultures negative x2 @ 48h - Urine culture, < 10k cfu of alpha strep - Vanc (07/30) and Zosyn (07/30) - 1/2 NS now at 100 mL/hr, will discontinue and give 40 mL IV lasix - WBC downtrending - Lactic acidosis resolved - AM ABG pending - Continue tube feeds and work on weaning ventilator today - Will discuss de-escalation of antibiotics diuresis 2. Aspiration PNA - Will discontinue Vanc (07/29-) - Continue Zosyn (07/29) - Solu-medrol per Dr. Prieto - Bronchoscopy today revealed mucus plug on L - Repeat CXR tomorrow morning - Vent management per Drs. Prieto/Bryce, weaning down RR today, fiO2 @ 30, PEEP @ 8 3. Seizure disorder - Unclear from records if partial seizures or grand mal - Notified Dr. Mendez, patient's neurologist, of admission - Dilantin level therapeutic, continue IV tx of home regimen - Restarted zonisamide and clobezam now tolerating tube feeds - Appreciate Dr. Mendiola's assistance 4. Klinefelter's Syndrome - Patient has moderate intellectual disability and short term memory loss at baseline - He is able to communicate basic needs and participate in his care but requires manager scientific caregiver at baseline 5. HLD - Home statin 6. Hypothyroidism - TSH WNL - Home levothyroxine 7. Acute Kidney Injury - Resolved 8. Constipation - s/p enema with no subsequent BM, good bowel sounds - Home regimen of miralax + colace resumed - Passing flatus regularly 9. Thrombocytopenia - Continue to monitor - Stable from yesterday - Possibly partially hemodilution - Lovenox started yesterday, if continues to decrease will consider discontinuing for concern of HIT - Monitor for signs of bleeding 10. Elevated BG on morning labs - A1c 5.2 PPX: Lovenox and pepcid <Ramires,Margaret E - Last Filed: 08/01/17 08:36> Attending Addendum - Attending Addendum I personally evaluated the patient and discussed the management with Dr. Ramires this morning. I agree with the History, Examination, Assessment and Plan documented above with any addition or exceptions noted below. <Mukund Rogers - Last Filed: 08/01/17 20:16>
[2017-08-01 07:33] LABS: Oxyhemoglobin 93.2 % (94.0-97.0); Sodium 146 mmol/L (135-148)
[2017-08-01 07:34] LABS: Modified Allen's Test POSITIVE; Vent YES
[2017-08-01 07:35] LABS: Mechanical Tidal Volume 450 ml; Mode SIMV.PSV; Pressure Support 10 cmH2O
[2017-08-01] MEDS ORDERED: Furosemide 40 MG/4 ML VIAL IVP SCH (08:15)
[2017-08-01] MEDS: Docusate Sodium 100 MG/10 ML UDCUP PO SCH ×2 (08:33→21:24)
[2017-08-01] MEDS: Thiamine HCl 200 MG, Admixture Fee 1 EACH in Sodium Chloride 0.9% 50 ML IVPB SCH ×2 (08:33→21:25)
[2017-08-01] MEDS: Levothyroxine Sodium 100 MCG TAB PO SCH (08:34)
[2017-08-01] MEDS: Polyethylene Glycol 3350 17 GM Packet PER TUBE SCH (08:34)
[2017-08-01] MEDS: Folic Acid 1 MG TAB PO SCH (08:35)
[2017-08-01] MEDS: Famotidine/PF 20 mg/2ml Vial SLOW IVP SCH ×2 (08:36→21:24)
[2017-08-01] MEDS: Enoxaparin Sodium 40 MG/0.4 ML SYRINGE SC SCH (08:36)
[2017-08-01] MEDS: Fosphenytoin Sodium 200 MG in Sodium Chloride 0.9% 50 ML IVPB SCH ×2 (08:42→21:24)
--- NOTE | 2017-08-01 08:52 | RAD ---
PORTABLE CHEST ONE VIEW: 08/01/2017 5:30 a.m. HISTORY: Respiratory failure. COMPARISON: Exam from the previous day. FINDINGS: Line and tube placements are unchanged in position. The patient is rotated to the right. There is increased opacification of the left hemithorax, which may be due to layering of pleural fluid. No p neumothoraces are seen. POS: [facility]
--- NOTE | 2017-08-01 08:55 | PRG ---
DATE OF SERVICE: 08/01/2017 Thirty-five minutes critical care time. Mr. Piña is awake. He has difficulty following commands. PHYSICAL EXAMINATION: VITAL SIGNS: Temperature is 98.5, pulse 94, blood pressure 136/104. He is requiring no vasopressor s. 24-hour intake is 4546, output 1760. HEENT: Unremarkable. NECK: No JVD. LUNGS: Diminished breath sounds on the left. Right side clear. CARDIAC: S1 and S2 regular. ABDOMEN: Soft. EXTREMITIES: No edema. Chest x-ray shows left lung atelectasis. LABORATORY DATA: White blood cell count 10.5, hematocrit 33.5, platelet count 112. Sodium 146, pot assium 4.0, chloride 119, CO2 23, BUN 18, creatinine 0.7, glucose 176, pH 7.34, pCO2 42, pO2 of 66 o n SIMV rate 18, tidal volume 450, PEEP 8, pressure support 10, FiO2 30%. ASSESSMENT: 1. Left lung atelectasis, likely secondary to mucus plugging. 2. Acute respiratory failure requiring mechanical ventilation. 3. Aspiration pneumonia. 4. Status epilepticus, which has resolved. 5. Mental retardation. 6. Septic shock, which has resolved. 7. Klinefelter's syndrome. PLAN: 1. Bronchoscopy was performed to remove mucus plug from left main stem bronchus. 2. Begin weaning respiratory rate with goal of extubating over the next 24-48 hours. 3. Continue IV antibiotics, but stop the vancomycin since no Staphylococcus has grown in the cultur es. 4. Wean steroid dose. 5. Will discuss with family.
--- NOTE | 2017-08-01 08:58 | OP ---
DATE OF PROCEDURE: 08/01/2017 SURGEON: Dr. Jd Prieto PREOPERATIVE DIAGNOSIS: Left lung mucus plugging. POSTOPERATIVE DIAGNOSIS: Left lung mucous plugging. PROCEDURE: Bronchoscopy with bronchoalveolar lavage. DESCRIPTION OF PROCEDURE: The bronchoscope was placed in the left main stem bronchus. The bronchos cope was placed down the patient's endotracheal tube. The trachea was normal in appearance. The le ft mainstem bronchus had a large clear mucus plug present. This was lavaged with saline and aspirat ed. The patient's airways on the right were clear. He tolerated the procedure well.
[2017-08-01] MEDS: Atorvastatin Calcium 40 MG TAB PO SCH (21:23)
[2017-08-01] MEDS: Zonisamide 100 MG CAP PO SCH (21:26)
[2017-08-02] MEDS: SODIUM CHLORIDE IVPB SCH ×3 (00:08→11:55)
[2017-08-02] MEDS: ADMIXTURE FEE IVPB SCH ×3 (00:08→11:55)
[2017-08-02] MEDS: ASCORBIC ACID IVPB SCH ×3 (00:08→11:55)
[2017-08-02] MEDS: Piperacillin/Tazobactam 3.375 GM, Admixture Fee 1 EACH in Sodium Chloride 0.9% 100 ML IVPB SCH ×5 (00:09→23:16)
[2017-08-02 05:21] LABS: Anion Gap 9 mmol/L (10-20); BUN (Urea Nitrogen) 19 mg/dL (8.4-25.7); Calc. Creatinine Clearance 180 mL/min (70-130); Calcium 8.2 mg/dL (7.8-10.44); Carbon Dioxide 28 mmol/L (22-29); Chloride 116 mmol/L (98-107); Estimated GFR-MDRD Greater than 90
[2017-08-02 05:47] LABS: Band 5 % (5-11); Hematocrit 32.9 % (42.0-52.0); Mean Platelet Volume 6.6 fL (7.4-10.4); Neutrophil 64 % (42-75); Nucleated RBC 1 % (0); Red Blood Cell (RBC) Count 3.46 mill/uL (4.70-6.10); White Blood Cell (WBC) Count 10.7 thou/uL (4.8-10.8)
--- NOTE | 2017-08-02 06:54 | PDOC.FM ---
- Subjective Subjective: Patient continues to become agitated when aroused. Assessing mental status results in coughing spells and need for propofol sedation. Patient had one large liquid bowel movement last night and continues to diurese well s/p lasix x 1 - Objective MAR Reviewed: Yes Vital Signs & Weight: Vital Signs (12 hours) Temp Pulse Resp Pulse Ox 08/02/17 06:00 11 L 08/02/17 04:00 98.7 F 13 08/02/17 02:52 75 08/02/17 02:51 73 16 98 08/02/17 02:00 14 08/02/17 00:00 99.3 F 14 08/01/17 22:50 78 08/01/17 22:49 78 13 97 08/01/17 22:00 15 08/01/17 20:00 99.1 F 86 18 94 L 08/01/17 19:31 74 08/01/17 19:30 75 15 95 Weight Admit Weight 109.769 kg Weight 117.1 kg Most Recent Monitor Data Heart Rate from ECG 76 NIBP 115/62 NIBP BP-Mean 75 Respiration from ECG 20 SpO2 98 I&O: 07/31/17 08/01/17 08/02/17 06:59 06:59 06:59 Intake Total 3738 4546 4104 Output Total 1264 1760 5520 Balance 2253 2486 -9738 Result Diagrams: 08/02/17 04:25 08/02/17 04:25 <Owen Cr - Last Filed: 08/02/17 07:00> - Objective Vital Signs & Weight: Vital Signs (12 hours) Temp Pulse Resp BP Pulse Ox 08/02/17 08:00 98.7 F 19 08/02/17 07:51 98.7 F 82 19 97 08/02/17 07:35 79 108/78 08/02/17 07:26 81 16 98 08/02/17 06:00 11 L 08/02/17 04:00 98.7 F 13 08/02/17 02:52 75 08/02/17 02:51 73 16 98 08/02/17 02:00 14 08/02/17 00:00 99.3 F 14 08/01/17 22:50 78 08/01/17 22:49 78 13 97 08/01/17 22:00 15 Weight Admit Weight 109.769 kg Weight 117.1 kg Most Recent Monitor Data Heart Rate from ECG 73 NIBP 132/72 NIBP BP-Mean 89 Respiration from ECG 15 SpO2 98 I&O: 08/01/17 08/02/17 08/03/17 06:59 06:59 06:59 Intake Total 4546 4104 100 Output Total 1760 5520 282 Balance 2338 -5096 -638 Result Diagrams: 08/02/17 04:25 08/02/17 04:25 <Barbara Allison - Last Filed: 08/02/17 09:58> Phys Exam - Physical Examination Constitutional: NAD HEENT: moist MMs Neck: no JVD Cardiovascular: RRR, no significant murmur Gastrointestinal: soft, non-tender, no distention Musculoskeletal: no edema Neurological: non-focal <Owen Cr - Last Filed: 08/02/17 07:00> Dx/Plan - Plan Plan: 1. Septic shock, resolved -afebrile, normal pulse, BP stable with appropriate MAP no longer requiring pressure support -UOP adequate s/p lasix x 1 I/O: 4104/5520 -CXR from 08/01 showed increasing opacity, however CXR today is improved -large liquid BM overnight with normal abdominal exam this morning -blood & urine clx negative -on Zosyn, Vanc has been d/c -plan is to wean ventilator with hopeful extubation in next 24-48hrs. this will be difficult considering patients agitation while assessing mentation previously. -continue tube feeds 2. Aspiration PNA -continue Zosyn -Vanc and solu-medrol d/c per pulm -CXR improving -pulm managing vent with hopeful weaning and extubation over the weekend 3. Seizure DO -neurology recommends no further workup or medication changes -consider LP if patient decompensates -continue home medication regimen, dilantin is therapeutic 4. Klinefelter's Syndrome -intellectual disability and short term memory loss 5. Hyothyroidism -continue home levothyroxine 6. HLD -continue home atorvastatin 7. DELTA, resolve 8. Constipation, resolve <Owen Cr - Last Filed: 08/02/17 07:00> Attending Addendum - Attending Addendum I personally evaluated the patient and discussed the management with Dr. Cr. I agree with the History, Examination, Assessment and Plan documented above with any addition or exceptions noted below. The patient remains on the vent and becomes agitated when sedation is weaned. Will continue to wean and hopefully extubate in next few days. The patient had a bowel movement last night. Updated family. Hypernatremia noted. Will add free water through og tube <Barbara Allison - Last Filed: 08/02/17 09:58>
[2017-08-02 07:35] LABS: Oxyhemoglobin 95.1 % (94.0-97.0); Sodium 149 mmol/L (135-148)
[2017-08-02 07:37] LABS: Mechanical Tidal Volume 500 ml; Mode SIMV; Modified Allen's Test POSITIVE; Pressure Support 10 cmH2O; Spontaneous Rate 9 min; Vent YES
[2017-08-02] MEDS: Folic Acid 1 MG TAB PO SCH (07:45)
[2017-08-02] MEDS: Levothyroxine Sodium 100 MCG TAB PO SCH (07:45)
[2017-08-02] MEDS: Polyethylene Glycol 3350 17 GM Packet PER TUBE SCH (07:47)
--- NOTE | 2017-08-02 08:40 | RAD ---
1 VIEW CHEST: Date: 08/02/17 COMPARISON: 08/01/17. HISTORY: Respiratory distress. Ventilated patient. FINDINGS: Stable lines and tubes. Worsening opacification of the right hemithorax. Improved aeration of left h emithorax. IMPRESSION: Worsening opacification right hemithorax. Improved aeration left hemithorax. POS: [facility]
[2017-08-02] MEDS: Thiamine HCl 200 MG, Admixture Fee 1 EACH in Sodium Chloride 0.9% 50 ML IVPB SCH ×2 (09:09→20:25)
[2017-08-02] MEDS: Fosphenytoin Sodium 200 MG in Sodium Chloride 0.9% 50 ML IVPB SCH ×2 (09:09→20:28)
[2017-08-02] MEDS: Docusate Sodium 100 MG/10 ML UDCUP PO SCH ×3 (09:10→20:25)
[2017-08-02] MEDS: Famotidine/PF 20 mg/2ml Vial SLOW IVP SCH ×2 (09:10→20:25)
[2017-08-02] MEDS: Enoxaparin Sodium 40 MG/0.4 ML SYRINGE SC SCH (09:11)
[2017-08-02] MEDS: Fosphenytoin Sodium 100 MG in Sodium Chloride 0.9% 50 ML IVPB SCH (10:21)
--- NOTE | 2017-08-02 16:14 | PRG ---
DATE OF SERVICE: 08/02/2017 SUBJECTIVE: Mr. Bryson did well overnight. He did well with spontaneous breathing trial this morni ng. His chest radiographs improved. OBJECTIVE: VITAL SIGNS: His heart rate 77, blood pressure 135/70, respiratory rate is 15. LUNGS: Clear bilaterally. HEART: Regular rhythm. ABDOMEN: Soft. LABORATORY DATA: White count 10.7, hemoglobin 10.7, platelets 136. Sodium 149, potassium 3.8, chlo ride 116, bicarbonate 28, BUN 19, creatinine 0.76, pH 73, CO2 49, pO2 of 75. IMPRESSION: Status post large volume aspiration, was slow improving radiograph and slow improvement clinically. We will try a spontaneous breathing trial in the morning. Hopefully, he will be a can didate for weaning and extubation tomorrow. Critical care time was 30 minutes.
[2017-08-02] MEDS: Atorvastatin Calcium 40 MG TAB PO SCH (20:24)
[2017-08-02] MEDS: Zonisamide 100 MG CAP PO SCH (21:27)
[2017-08-02] MEDS: Propofol 1,000 MG/100 ML VIAL IV PRN (21:46)
[2017-08-03 04:33] LABS: Anion Gap 10 mmol/L (10-20); BUN (Urea Nitrogen) 18 mg/dL (8.4-25.7); Calc. Creatinine Clearance 189 mL/min (70-130); Calcium 8.6 mg/dL (7.8-10.44); Carbon Dioxide 30 mmol/L (22-29); Chloride 114 mmol/L (98-107); Estimated GFR-MDRD Greater than 90
[2017-08-03] MEDS: Piperacillin/Tazobactam 3.375 GM, Admixture Fee 1 EACH in Sodium Chloride 0.9% 100 ML IVPB SCH ×4 (05:10→23:59)
[2017-08-03 05:56] LABS: Band 1 % (5-11); Hematocrit 32.4 % (42.0-52.0); Mean Platelet Volume 6.4 fL (7.4-10.4); Neutrophil 53 % (42-75); White Blood Cell (WBC) Count 9.7 thou/uL (4.8-10.8)
--- NOTE | 2017-08-03 06:47 | PDOC.FM ---
- Subjective Subjective: Patient awake this morning, in soft restraints. He is moving in bed and becomes agitated when spoken to or asked to follow commands. Nursing reports needing propofol @ 30 to keep him calm overnight. Otherwise he is afebrile with stable vital signs and improving laboratory studies. - Objective MAR Reviewed: Yes Vital Signs & Weight: Vital Signs (12 hours) Temp Pulse Resp Pulse Ox 08/03/17 06:00 13 08/03/17 04:00 98.7 F 13 08/03/17 02:41 77 08/03/17 02:40 77 11 L 100 08/03/17 02:00 13 08/03/17 00:00 98.7 F 24 H 08/02/17 22:23 79 15 97 08/02/17 22:00 16 08/02/17 20:00 14 08/02/17 19:32 98.2 F 78 26 H 96 08/02/17 19:00 98.2 F Weight Admit Weight 109.769 kg Weight 114.94 kg Most Recent Monitor Data Heart Rate from ECG 75 NIBP 129/74 NIBP BP-Mean 87 Respiration from ECG 0 SpO2 96 I&O: 08/01/17 08/02/17 08/03/17 06:59 06:59 06:59 Intake Total 4546 4104 2975.5 Output Total 1760 5520 2342 Balance 7106 -2814 633.5 Result Diagrams: 08/03/17 04:11 08/03/17 04:11 <Owen Cr - Last Filed: 08/03/17 06:45> - Objective Vital Signs & Weight: Vital Signs (12 hours) Temp Pulse Resp BP Pulse Ox 08/03/17 08:00 98.8 F 17 08/03/17 06:58 76 129/64 08/03/17 06:56 75 23 H 98 08/03/17 06:00 13 08/03/17 04:00 98.7 F 13 08/03/17 02:41 77 08/03/17 02:40 77 11 L 100 08/03/17 02:00 13 08/03/17 00:00 98.7 F 24 H 08/02/17 22:23 79 15 97 08/02/17 22:00 16 Weight Admit Weight 109.769 kg Weight 114.94 kg Most Recent Monitor Data Heart Rate from ECG 77 NIBP 153/78 NIBP BP-Mean 105 Respiration from ECG 20 SpO2 95 I&O: 08/02/17 08/03/17 08/04/17 06:59 06:59 06:59 Intake Total 4104 2975.5 160 Output Total 5520 2342 545 Balance -1416 633.5 -385 Result Diagrams: 08/03/17 04:11 08/03/17 04:11 <Barbara Allison - Last Filed: 08/03/17 09:06> Phys Exam - Physical Examination Constitutional: NAD HEENT: moist MMs Neck: no JVD Cardiovascular: RRR, no significant murmur Gastrointestinal: soft, non-tender, no distention Musculoskeletal: no edema, pulses present Neurological: non-focal, moves all 4 limbs Skin: no rash <Owen Cr - Last Filed: 08/03/17 06:45> Dx/Plan - Plan Plan: 1. Septic shock, resolved -afebrile with stable vital signs, no longer needing pressure support -UOP adequate I/O: 2926/2292 -slowly improving CXR -blood and urine cultures negative -currently on Zosyn -tube feeds with free water flushes -2 BM yesterday Plan: spontaneous breathing trial per pulmonology with hopeful extubation in next 24 hours, continue zosyn 2. Aspiration PNA -Zosyn -CXR improving, read for today pending -see above 3. Seizure DO -neurology recommends no further workup or medication changes -will likely require LP if he decompensates -dilantin at therapeutic level -continue home medications 4. Hypernatremia -slowly increasing sodium level since admission -order for free water through OG tube 5. Klinefelter's syndrome -baseline of intellectual disability and short term memory loss 6. Hypothyroidism -continue home levothyroxine 7. HLD -continue home atorvastatin 8. DELTA, resolved 9. Constipation, resolved <Owen Cr - Last Filed: 08/03/17 06:45> Attending Addendum - Attending Addendum I personally evaluated the patient and discussed the management with Dr. Cr. I agree with the History, Examination, Assessment and Plan documented above with any addition or exceptions noted below. The patient is on a spontaneous breathing trial. Sedation is off. Patient is able to follow my commands without agitation. Anticipate extubation later today if he continues to do well. May treat with d3volpa if he isn't able to take PO after extubation. <Barbara Allison - Last Filed: 08/03/17 09:06>
[2017-08-03] MEDS: Famotidine/PF 20 mg/2ml Vial SLOW IVP SCH ×2 (08:29→20:02)
[2017-08-03] MEDS: Docusate Sodium 100 MG/10 ML UDCUP PO SCH ×2 (08:29→20:07)
[2017-08-03] MEDS: Levothyroxine Sodium 100 MCG TAB PO SCH (08:30)
[2017-08-03] MEDS: Folic Acid 1 MG TAB PO SCH (08:30)
[2017-08-03] MEDS: Fosphenytoin Sodium 200 MG in Sodium Chloride 0.9% 50 ML IVPB SCH ×2 (08:30→20:03)
[2017-08-03] MEDS: Polyethylene Glycol 3350 17 GM Packet PER TUBE SCH (08:33)
[2017-08-03] MEDS: Enoxaparin Sodium 40 MG/0.4 ML SYRINGE SC SCH (08:48)
--- NOTE | 2017-08-03 08:57 | RAD ---
1 VIEW CHEST: Date: 08/03/17 COMPARISON: 08/02/17. HISTORY: Ventilated patient. Respiratory distress. FINDINGS: Stable lines and tubes. Persistent opacification of lung parenchyma with obscuration of both hemidia phragms. Pneumothorax is not appreciated. IMPRESSION: No significant change. POS: [facility]
[2017-08-03] MEDS ORDERED: Furosemide 100 MG/10 ML VIAL IVPB SCH (09:30)
[2017-08-03] MEDS: Propofol 1,000 MG/100 ML VIAL IV PRN ×2 (12:23→22:43)
--- NOTE | 2017-08-03 16:43 | PRG ---
DATE OF SERVICE: 08/03/2017 SUBJECTIVE: Mr. Bryson will awaken and nod and follow commands. He does have diffuse rhonchi. He does have an excellent cough. He is coughing frequently. Chest radiograph still suggestive of atelectasis, perhaps some volume overload. He is close to 7 li ters since admission and a positive fluid balance. He did reasonably well on a spontaneous breathin g trial this morning. OBJECTIVE: VITAL SIGNS: He is afebrile, respiratory rate is 12, heart rate is 82 and blood pressure 129/73. LUNGS: Remarkable for diffuse rhonchi. HEART: Regular rhythm. ABDOMEN: Soft. LABORATORY DATA: White count 9.7, hemoglobin 10.6 and platelets 136,000. Sodium 150, potassium 3.5, chloride 114, bicarb 30, BUN 18 and creatinine 0.73. IMPRESSION: 1. Volume overload. 2. Status post aspiration with intubation. I feel it would be aguero to extubate him today. We will try diuresing some of his extravascular volume off and see how he looks in the morning. He is slig htly hypernatremic and hyperchloremic, but as long as this does not change quickly, the diuresis alexys l not hurt. I certainly would not add free water to his regimen at this time.
[2017-08-03] MEDS ORDERED: Furosemide 40 MG/4 ML VIAL IVP ONE (18:00)
[2017-08-03] MEDS: Atorvastatin Calcium 40 MG TAB PO SCH (20:02)
[2017-08-03] MEDS: Zonisamide 100 MG CAP PO SCH (20:48)
[2017-08-04] MEDS: Propofol 1,000 MG/100 ML VIAL IV PRN (04:05)
[2017-08-04 04:57] LABS: Anion Gap 12 mmol/L (10-20); BUN (Urea Nitrogen) 22 mg/dL (8.4-25.7); Calc. Creatinine Clearance 172 mL/min (70-130); Calcium 8.8 mg/dL (7.8-10.44); Carbon Dioxide 33 mmol/L (22-29); Chloride 106 mmol/L (98-107); Estimated GFR-MDRD Greater than 90
[2017-08-04] MEDS: Piperacillin/Tazobactam 3.375 GM, Admixture Fee 1 EACH in Sodium Chloride 0.9% 100 ML IVPB SCH ×4 (05:21→20:27)
--- NOTE | 2017-08-04 06:56 | PDOC.FM ---
- Subjective Subjective: No acute events overnight. Remains intubated but is slightly overbreathing the vent on his own. Will arouse on sedation holiday and follow commands without significant agitation. - Objective MAR Reviewed: Yes Vital Signs & Weight: Vital Signs (12 hours) Temp Pulse Resp BP Pulse Ox 08/04/17 06:23 84 103/59 L 08/04/17 06:20 84 11 L 97 08/04/17 06:00 15 08/04/17 04:00 98.5 F 11 L 08/04/17 02:15 83 14 97 08/04/17 02:00 13 08/04/17 00:00 98.6 F 15 08/03/17 22:13 85 22 H 96 08/03/17 21:59 14 08/03/17 20:00 100 F H 80 18 96 08/03/17 19:11 18 08/03/17 18:55 83 Weight Admit Weight 109.769 kg Weight 107.3 kg Most Recent Monitor Data Heart Rate from ECG 84 NIBP 103/59 NIBP BP-Mean 66 Respiration from ECG 11 SpO2 97 I&O: 08/02/17 08/03/17 08/04/17 06:59 06:59 06:59 Intake Total 4104 2975.5 3347 Output Total 5577 2342 9400 Balance -2485 633.5 -6053 Result Diagrams: 08/03/17 04:11 08/04/17 04:00 EKG Reviewed by me: Yes Radiology Reviewed by me: Yes <Margaret Ramires - Last Filed: 08/04/17 11:22> - Objective Vital Signs & Weight: Vital Signs (12 hours) Temp Pulse Resp Pulse Ox 08/04/17 23:34 96 08/04/17 20:00 99.0 F 08/04/17 18:37 96 08/04/17 18:36 79 19 96 08/04/17 16:00 99.1 F 08/04/17 14:38 75 20 98 08/04/17 12:12 80 18 99 08/04/17 12:00 97.9 F 99 Weight Admit Weight 109.769 kg Weight 107.3 kg Most Recent Monitor Data Heart Rate from ECG 77 NIBP 143/73 NIBP BP-Mean 108 Respiration from ECG 25 SpO2 97 I&O: 10/08/04/17 08/05/17 06:59 06:59 06:59 Intake Total 2975.5 3347 614.8 Output Total 2342 9400 1655 Balance 633.5 -6053 -1040.2 Result Diagrams: 08/03/17 04:11 08/04/17 04:00 <PopeSeng Michel - Last Filed: 08/04/17 23:55> Phys Exam - Physical Examination Constitutional: NAD HEENT: moist MMs, sclera anicteric Neck: supple Respiratory: no wheezing, clear to auscultation bilateral Cardiovascular: RRR faint systolic murmur Gastrointestinal: soft, non-tender, no distention, positive bowel sounds Musculoskeletal: pulses present trace BLE/BUE edema Neurological: moves all 4 limbs sedated on propofol Skin: no rash, cap refill <2 seconds <Margaret Ramires - Last Filed: 08/04/17 11:22> Dx/Plan (1) Septic shock Code(s): A41.9 - SEPSIS, UNSPECIFIED ORGANISM; R65.21 - SEVERE SEPSIS WITH SEPTIC SHOCK Status: Acute (2) Epilepsy symptomatic, generalized Code(s): G40.409 - OTH GENERALIZED EPILEPSY, NOT INTRACTABLE, W/O STAT EPI Status: Chronic (3) Hyperlipidemia Code(s): E78.5 - HYPERLIPIDEMIA, UNSPECIFIED Status: Chronic (4) Hypothyroidism Code(s): E03.9 - HYPOTHYROIDISM, UNSPECIFIED Status: Chronic (5) Klinefelter syndrome Code(s): Q98.4 - KLINEFELTER SYNDROME, UNSPECIFIED Status: Chronic (6) Acute kidney injury Code(s): N17.9 - ACUTE KIDNEY FAILURE, UNSPECIFIED Status: Acute (7) Constipation Code(s): K59.00 - CONSTIPATION, UNSPECIFIED Status: Chronic - Plan Plan: 1. Septic shock, resolved - Afebrile and VSS - UOP notable with diuresis yesterday I/O: 3347/9400 - CXR stable with mild improvement on R - Blood culture negative x2 and urine culture < 10k cfu alpha strep - Currently on Zosyn - s/p Vancomycin - Tube feeds with free water flushes Plan: spontaneous breathing trial per pulmonology with hopeful extubation in next 24 hours, continue Zosyn 2. Aspiration PNA - Zosyn (07/29) - CXR improving, read for today pending - see above 3. Seizure DO - Neurology recommends no further workup or medication changes - Dilantin at therapeutic level - Continue home medications of Zonisamide and clobezam - Appreciate Dr. Mendiola's assistance 4. Hypernatremia - Slowly increasing sodium level since admission - Decreased since yesterday, will maintain PO free water flushes 65 mL q4 hr 5. Klinefelter's syndrome - Baseline of intellectual disability and short term memory loss 6. Hypothyroidism - TSH WNL - Continue home levothyroxine 7. HLD - Continue home atorvastatin 8. DELTA, resolved 9. Constipation, resolved - Home regimen of miralax and colace 10. Hypokalemia - Replete PO with 40 mEq today - Monitor 11. Thrombocytopenia - Improved - Continue to monitor 12. Elevated BG on morning labs - A1c 5.2 PPX: Lovenox and pepcid <Margaret Ramires - Last Filed: 08/04/17 11:22> Attending Addendum - Attending Addendum I personally evaluated the patient and discussed the management with Dr. Ramires I agree with the History, Examination, Assessment and Plan documented above with any addition or exceptions noted below. Extubated and NG tube removed. Vitals stable diuresing. Lungs with diffuse coarse ronchi without localized decrease. No sz activity. Awaiting ST to consider trial of p.o. and advance. Will likely stay in CCU overnight to assure stability prior to any transfer. Deconditioned after vent dependency in compromised pt with Marfans, may need PT/OT consider Rehab or home PT services when ready medically for d/c. 30 minutes in CCU time. <Seng Martin - Last Filed: 08/04/17 23:55>
[2017-08-04 07:09] LABS: Oxyhemoglobin 95.6 % (94.0-97.0); Sodium 147 mmol/L (135-148)
[2017-08-04 07:11] LABS: Mechanical Tidal Volume 500 ml; Mode SIMV.PSV; Modified Allen's Test POSITIVE; Pressure Support 10 cmH2O; Vent YES
--- NOTE | 2017-08-04 08:14 | PRG ---
DATE OF SERVICE: 08/04/2017 Thirty-five minutes critical care time. SUBJECTIVE: Mr. Piña remains intubated on mechanical ventilation. He is much more awake than he h as been throughout his entire hospitalization. He is currently enduring his spontaneous breathing t rial and doing very well. PHYSICAL EXAMINATION: VITAL SIGNS: His temperature is 98.5, pulse 84, blood pressure 103/59, 24-hour intake 3347, output 400. HEENT: Exam is unremarkable. NECK: No JVD. LUNGS: Fairly clear. CARDIOVASCULAR: S1, S2 regular. ABDOMEN: Soft, nontender. EXTREMITIES: No clubbing, cyanosis, or edema. LABORATORY DATA: PH 7.38, pCO2 of 56, pO2 of 73 and that was on SIMV rate 6, tidal volume 500, PEEP 5, pressure support 10, FiO2 of 40%. Sodium 140, potassium 3.3, chloride 106, CO2 of 33, BUN 22, c reatinine 0.7, glucose 145. White blood cell count 9.7, hematocrit 32.4, platelet count 136. ASSESSMENT: 1. Aspiration pneumonia. 2. Acute respiratory failure, requiring mechanical ventilation. 3. Resolved left lung atelectasis from mucus plugging. 4. Status epilepticus, which has resolved. 5. Mental retardation. 6. Status post septic shock, which is resolved. 7. Klinefelter's syndrome. PLAN: 1. Spontaneous breathing trial with plans to extubate if the repeat blood gases doing okay. 2. Replace potassium.
[2017-08-04] MEDS ORDERED: Sterile Water 10 ML ONE (08:49)
[2017-08-04] MEDS: Polyethylene Glycol 3350 17 GM Packet PER TUBE SCH (08:56)
[2017-08-04] MEDS: Levothyroxine Sodium 100 MCG TAB PO SCH (08:57)
[2017-08-04] MEDS: Folic Acid 1 MG TAB PO SCH (08:57)
[2017-08-04] MEDS: Enoxaparin Sodium 40 MG/0.4 ML SYRINGE SC SCH (08:57)
[2017-08-04] MEDS: Famotidine/PF 20 mg/2ml Vial SLOW IVP SCH ×2 (08:57→20:46)
[2017-08-04] MEDS: Docusate Sodium 100 MG/10 ML UDCUP PO SCH ×2 (08:58→20:39)
[2017-08-04] MEDS: Fosphenytoin Sodium 200 MG in Sodium Chloride 0.9% 50 ML IVPB SCH ×2 (09:27→20:46)
--- NOTE | 2017-08-04 09:27 | RAD ---
FRONTAL RADIOGRAPH OF CHEST: Date: 08/04/17 COMPARISON: 08/03/17. HISTORY: Ventilated patient. FINDINGS: Positioning limits assessment as the patient is significantly rotated to the right. Stable endotrach eal tube, nasogastric tube, and left-sided vascular catheter. There is hazy increased density overlying the left hemithorax with a basilar predominance, slightly worsened since the prior exam. This suggests nonspecific left perihilar and left basilar air space d isease with probable associated left pleural effusion. There is focal opacity in the right perihilar region and medial right lung base suggesting nonspecific air space disease or volume loss. IMPRESSION: Lines and tubes as detailed above. There is significant pulmonary parenchymal opacity, left greater than right, with associated pleural fluid, most significant on the left. POS: [facility]
[2017-08-04 09:45] LABS: Oxyhemoglobin 94.7 % (94.0-97.0); Sodium 147 mmol/L (135-148)
[2017-08-04 09:47] LABS: Mode PSV; Modified Allen's Test POSITIVE; Pressure Support 10 cmH2O; Vent YES
[2017-08-04] MEDS: Atorvastatin Calcium 40 MG TAB PO SCH (20:34)
[2017-08-04] MEDS: Zonisamide 100 MG CAP PO SCH (20:43)
[2017-08-05] MEDS: Piperacillin/Tazobactam 3.375 GM, Admixture Fee 1 EACH in Sodium Chloride 0.9% 100 ML IVPB SCH ×4 (02:00→20:45)
[2017-08-05 04:50] LABS: Anion Gap 9 mmol/L (10-20); BUN (Urea Nitrogen) 21 mg/dL (8.4-25.7); Calc. Creatinine Clearance 169 mL/min (70-130); Calcium 9.1 mg/dL (7.8-10.44); Carbon Dioxide 30 mmol/L (22-29); Chloride 110 mmol/L (98-107); Estimated GFR-MDRD Greater than 90
--- NOTE | 2017-08-05 06:17 | PDOC.FM ---
- Subjective Subjective: Doing well this morning. Alert and oriented and saying that his throat hurts. Otherwise, he has no complaints and says he wants "no recipes" because he can't eat yet. He is looking foward to seeing his parents this morning. Nursing has no concerns apart from inability to give PO meds because of his swallow eval yesterday. BM overnight. - Objective MAR Reviewed: Yes Vital Signs & Weight: Vital Signs (12 hours) Temp Pulse Resp Pulse Ox 08/05/17 04:00 98.2 F 08/05/17 02:44 97 08/05/17 02:43 97 08/05/17 00:00 98.9 F 08/04/17 23:34 96 08/04/17 20:00 99.0 F 84 16 100 08/04/17 18:37 96 08/04/17 18:36 79 19 96 Weight Admit Weight 109.769 kg Weight 107.3 kg Most Recent Monitor Data Heart Rate from ECG 72 NIBP 129/67 NIBP BP-Mean 87 Respiration from ECG 20 SpO2 97 I&O: 08/03/17 08/04/17 08/05/17 06:59 06:59 06:59 Intake Total 2975.5 3347 1029.8 Output Total 2342 9400 2465 Balance 633.5 -6053 -1435.2 Result Diagrams: 08/03/17 04:11 08/05/17 04:00 EKG Reviewed by me: Yes Radiology Reviewed by me: Yes <Margaret Ramires - Last Filed: 08/05/17 08:26> - Objective Vital Signs & Weight: Vital Signs (12 hours) Temp Pulse Resp Pulse Ox 08/05/17 08:00 98.1 F 75 16 100 08/05/17 07:31 98 08/05/17 07:29 75 16 98 08/05/17 07:00 98.1 F 08/05/17 04:00 98.2 F 08/05/17 02:44 97 08/05/17 02:43 97 08/05/17 00:00 98.9 F 08/04/17 23:34 96 Weight Admit Weight 109.769 kg Weight 107.3 kg Most Recent Monitor Data Heart Rate from ECG 78 NIBP 110/70 NIBP BP-Mean 84 Respiration from ECG 16 SpO2 95 I&O: 08/04/17 08/05/17 08/06/17 06:59 06:59 06:59 Intake Total 3347 1029.8 65 Output Total 9400 2465 340 [facility] -6053 -1435.2 -275 Result Diagrams: 08/03/17 04:11 08/05/17 04:00 <Seng Martin - Last Filed: 08/05/17 10:25> Phys Exam - Physical Examination Constitutional: NAD dry lips, tongue and mucosa moist, NC in place Neck: supple Respiratory: no wheezing coarse rhonchi throughout both lung stokes Cardiovascular: RRR faint systolic murmur Gastrointestinal: soft, non-tender, no distention, positive bowel sounds Musculoskeletal: no edema, pulses present Neurological: non-focal, moves all 4 limbs Psychiatric: normal affect, A&O x 3 Skin: cap refill <2 seconds Deviation from normal: skin darkening in LLE, stable since admission <Margaret Ramires - Last Filed: 08/05/17 08:26> Dx/Plan (1) Septic shock Code(s): A41.9 - SEPSIS, UNSPECIFIED ORGANISM; R65.21 - SEVERE SEPSIS WITH SEPTIC SHOCK Status: Acute (2) Epilepsy symptomatic, generalized Code(s): G40.409 - OTH GENERALIZED EPILEPSY, NOT INTRACTABLE, W/O STAT EPI Status: Chronic (3) Hyperlipidemia Code(s): E78.5 - HYPERLIPIDEMIA, UNSPECIFIED Status: Chronic (4) Hypothyroidism Code(s): E03.9 - HYPOTHYROIDISM, UNSPECIFIED Status: Chronic (5) Klinefelter syndrome Code(s): Q98.4 - KLINEFELTER SYNDROME, UNSPECIFIED Status: Chronic (6) Acute kidney injury Code(s): N17.9 - ACUTE KIDNEY FAILURE, UNSPECIFIED Status: Acute (7) Constipation Code(s): K59.00 - CONSTIPATION, UNSPECIFIED Status: Chronic - Plan Plan: 1. Septic shock, resolved - Successfully extubated (08/04) - Titrate down supplemental O2 to goal saturation of 92% - Afebrile and VSS - UOP adequate, regular BM - CXR stable with ongoing atelectasis - Blood culture negative x2 and urine culture < 10k cfu alpha strep - Currently on Zosyn, will stop after today - s/p Vancomycin - Repeat speech eval today and plan for NG if fails ST again 2. Aspiration PNA - Zosyn (07/29), will D/C after today - CXR stable, read for today pending - Steroids per Dr. Prieto 3. Seizure D/O - Neurology recommends no further workup or medication changes - Dilantin at therapeutic level - Continue home medications of Zonisamide and clobezam, will place NG today if fails swallow eval again - Appreciate Dr. Mendiola's assistance 4. Hypernatremia - Slowly increasing sodium level since admission - Improving now, continue to monitor I/O 5. Klinefelter's syndrome - Baseline of intellectual disability and short term memory loss 6. Hypothyroidism - TSH WNL - Continue home levothyroxine 7. HLD - Continue home atorvastatin 8. DELTA, resolved - Continue to monitor 9. Constipation, resolved - Home regimen of miralax and colace PRN 10. Hypokalemia, resolved - Continue to monitor 11. Thrombocytopenia, resolved - Continue to monitor 12. Elevated BG on morning labs - A1c 5.2 PPX: Lovenox and pepcid Dispo: PT this morning and plan to move out of ICU up to medical floor. Speech eval this morning. Prepare for D/C to home or possibly rehab pending PT eval over the next couple of days. <Margaret Ramires - Last Filed: 08/05/17 08:26> Attending Addendum - Attending Addendum I personally evaluated the patient and discussed the management with Dr. Ramires I agree with the History, Examination, Assessment and Plan documented above with any addition or exceptions noted below. More alert. OOB in chair. No dyspnea. Hungry. Vitals stable. Afeb. Lungs clearing with residual rhales Left>Right. Pull CVC and Whyte. Transfer to floor. ST reeval for swallow, feed if passes. Evals for Rehab. <Seng Martin - Last Filed: 08/05/17 10:25>
[2017-08-05] MEDS: Acetaminophen 650 MG in Premix Bag 1 BAG IVPB PRN ×2 (07:57→17:59)
--- NOTE | 2017-08-05 07:57 | PRG ---
DATE OF SERVICE: 08/05/2017 He was extubated yesterday. He did well last night. He has not passed a speech therapy swallowing test yet. PHYSICAL EXAMINATION: VITAL SIGNS: Temperature is 98.1, pulse 74, blood pressure 134/68, weight is 236 pounds. HEENT: Unremarkable. NECK: No JVD. LUNGS: Lungs have a few coarse breath sounds. CARDIAC: S1 and S2 regular. ABDOMEN: Soft. EXTREMITIES: No edema. LABORATORY DATA: Sodium 145, potassium 3.7, chloride 110, CO2 30, BUN 12, creatinine 0.7, glucose 1 15. Chest x-ray shows some interstitial changes bilaterally. ASSESSMENT: 1. Status post prolonged respiratory failure related to aspiration pneumonia. 2. Status epilepticus which has resolved. 3. Mental retardation. 4. Klinefelter's syndrome. PLAN: He can be transferred out to the medical floor. He will need 1 more day of IV antibiotics. He should start physical therapy.
[2017-08-05] MEDS: Docusate Sodium 100 MG/10 ML UDCUP PO SCH ×2 (08:03→20:48)
[2017-08-05] MEDS: Folic Acid 1 MG TAB PO SCH (08:03)
[2017-08-05] MEDS: Polyethylene Glycol 3350 17 GM Packet PER TUBE SCH (08:06)
[2017-08-05] MEDS ORDERED: Famotidine 20 MG TAB PO SCH (09:00)
[2017-08-05] MEDS: Fosphenytoin Sodium 100 MG in Sodium Chloride 0.9% 50 ML IVPB SCH (09:26)
[2017-08-05] MEDS: Fosphenytoin Sodium 200 MG in Sodium Chloride 0.9% 50 ML IVPB SCH ×2 (09:27→21:06)
[2017-08-05] MEDS: Enoxaparin Sodium 40 MG/0.4 ML SYRINGE SC SCH (09:27)
[2017-08-05] MEDS: Famotidine/PF 20 mg/2ml Vial SLOW IVP SCH ×2 (09:28→20:46)
[2017-08-05] MEDS: Levothyroxine Sodium 100 MCG TAB PO SCH (09:37)
--- NOTE | 2017-08-05 09:47 | RAD ---
PORTABLE SEMIUPRIGHT FRONTAL CHEST RADIOGRAPH: Date: 08/05/17 COMPARISON: 08/04/17. HISTORY: Ventilated patient. FINDINGS: The endotracheal tube present on the prior exam, as well as the nasogastric tube present on the prio r exam, have both been removed. There is a stable left vascular catheter. There is hazy increased de nsity in bilateral perihilar regions suggesting air space disease and pulmonary vascular prominence. There is increased density in the suprahilar region on the left which could be vascular in nature o r could be on the basis or air space disease. In both lung bases, there is patchy air space disease and interstitial prominence suggesting pulmonary edema. Aeration within the left lung has improved s sid the prior exam. IMPRESSION: Interstitial and alveolar opacities centered within the perihilar regions in both lung bases suggest pulmonary edema. A superimposed degree of infectious pneumonitis or aspiration is a possibility. Fo llow-up to resolution advised. POS: [facility]
[2017-08-05] MEDS: Atorvastatin Calcium 40 MG TAB PO SCH (20:45)
[2017-08-05] MEDS: Zonisamide 100 MG CAP PO SCH (20:48)
[2017-08-06] MEDS: Piperacillin/Tazobactam 3.375 GM, Admixture Fee 1 EACH in Sodium Chloride 0.9% 100 ML IVPB SCH (01:19)
[2017-08-06] MEDS: Acetaminophen 650 MG in Premix Bag 1 BAG IVPB PRN (02:18)
[2017-08-06 05:21] LABS: #Lymphocytes 2.4 thou/uL (1.20-3.40); #Monocytes 0.6 thou/uL (0.11-0.59); #Neutrophils 3.8 thou/uL (1.40-6.50); %Basophils 0.1 % (0.0-1.0); %Eosinophils 0.5 % (0.0-10.0); %Lymphocytes 34.9 % (21.0-51.0); %Monocytes 8.5 % (0.0-10.0); Hematocrit 35.6 % (42.0-52.0); Mean Platelet Volume 6.8 fL (7.4-10.4); Red Blood Cell (RBC) Count 3.68 mill/uL (4.70-6.10); White Blood Cell (WBC) Count 6.9 thou/uL (4.8-10.8)
[2017-08-06 05:39] LABS: Anion Gap 11 mmol/L (10-20); BUN (Urea Nitrogen) 21 mg/dL (8.4-25.7); Calc. Creatinine Clearance 165 mL/min (70-130); Calcium 9.1 mg/dL (7.8-10.44); Carbon Dioxide 25 mmol/L (22-29); Chloride 110 mmol/L (98-107); Estimated GFR-MDRD Greater than 90
--- NOTE | 2017-08-06 06:42 | PDOC.FM ---
- Subjective Subjective: Doing well this morning. No new concerns or complaints. His throat pain is much better and family has questions regarding rehab. They do not think they can manage with him at home right now as he is needing a lot of assistance and only took 4 steps with PT yesterday. They would like to discuss options of home rehab vs. an inpatient SNF/rehab option. - Objective MAR Reviewed: Yes Vital Signs & Weight: Vital Signs (12 hours) Temp Pulse Resp BP Pulse Ox 08/06/17 04:39 93 L 08/06/17 04:00 97.7 F 65 18 127/83 96 08/06/17 01:53 69 16 91 L 08/06/17 00:29 98.6 F 66 18 136/78 95 08/05/17 20:00 97.7 F 74 18 132/84 96 08/05/17 19:48 98.6 F 75 16 93 L 08/05/17 19:13 75 16 93 L Weight Admit Weight 109.769 kg Weight 107.3 kg Most Recent Monitor Data Heart Rate from ECG 78 NIBP 128/63 NIBP BP-Mean 98 Respiration from ECG 17 SpO2 100 I&O: 08/04/17 08/05/17 08/06/17 06:59 06:59 06:59 Intake Total 3347 1029.8 428 Output Total 9400 2465 475 [facility] -6053 -1435.2 -47 Result Diagrams: 08/06/17 05:05 08/06/17 05:05 Radiology Reviewed by me: Yes Phys Exam - Physical Examination Constitutional: NAD HEENT: moist MMs, sclera anicteric Neck: supple Respiratory: no wheezing, clear to auscultation bilateral Cardiovascular: RRR faint systolic murmur Gastrointestinal: soft, non-tender, no distention, positive bowel sounds Musculoskeletal: no edema, pulses present Neurological: non-focal, moves all 4 limbs Psychiatric: normal affect, A&O x 3 Deviation from normal: skin darkening on LLE, no change since admission Dx/Plan (1) Septic shock Code(s): A41.9 - SEPSIS, UNSPECIFIED ORGANISM; R65.21 - SEVERE SEPSIS WITH SEPTIC SHOCK Status: Acute (2) Epilepsy symptomatic, generalized Code(s): G40.409 - OTH GENERALIZED EPILEPSY, NOT INTRACTABLE, W/O STAT EPI Status: Chronic (3) Hyperlipidemia Code(s): E78.5 - HYPERLIPIDEMIA, UNSPECIFIED Status: Chronic Qualifiers: Qualified Code(s): E78.5 - Hyperlipidemia, unspecified (4) Hypothyroidism Code(s): E03.9 - HYPOTHYROIDISM, UNSPECIFIED Status: Chronic Qualifiers: Qualified Code(s): E03.9 - Hypothyroidism, unspecified (5) Klinefelter syndrome Code(s): Q98.4 - KLINEFELTER SYNDROME, UNSPECIFIED Status: Chronic (6) Acute kidney injury Code(s): N17.9 - ACUTE KIDNEY FAILURE, UNSPECIFIED Status: Acute (7) Constipation Code(s): K59.00 - CONSTIPATION, UNSPECIFIED Status: Chronic Qualifiers: Qualified Code(s): K59.00 - Constipation, unspecified - Plan Plan: 1. Septic shock, resolved - Successfully extubated (08/04) and off supplemental O2 - Afebrile and VSS - UOP adequate, regular BM - CXR slightly improved from yesterday - Blood culture negative x2 and urine culture < 10k cfu alpha strep - s/p Zosyn x8 days - s/p Vancomycin 2. Aspiration PNA - Zosyn (07/29-) - CXR slightly improved from yesterday - Steroids per Dr. Prieto, will transition to PO prednisone - Appreciate speech therapy recommendations - Continue PT/OT/ST/incentive spirometery 3. Seizure D/O - Neurology recommends no further workup or medication changes - Dilantin at therapeutic level - Continue home medications of Zonisamide and clobezam - Appreciate Dr. Mendiola's assistance - Follow-up with Dr. Mendez within 1 week of D/C 4. Klinefelter's syndrome - Baseline of intellectual disability and short term memory loss 5. Hypothyroidism - TSH WNL - Continue home levothyroxine 6. HLD - Continue home atorvastatin 7. Constipation, resolved - Home regimen of miralax and colace PRN 8. Elevated BG on morning labs - A1c 5.2 PPX: Lovenox and pepcid Dispo: Prepare for D/C to home or possibly rehab pending PT eval over the next couple of days.
[2017-08-06] MEDS: Docusate Sodium 100 MG/10 ML UDCUP PO SCH ×2 (08:19→21:35)
--- NOTE | 2017-08-06 08:24 | RAD ---
ONE VIEW CHEST: HISTORY: Ventilated patient. COMPARISON: 08/05/2017 FINDINGS: Normal cardiac silhouette. There are persistent interstitial and alveolar opacities. No significan t change. No pneumothorax. IMPRESSION: No significant interval change. POS: OFF
[2017-08-06] MEDS: CeleCOXIB 100 MG CAP PO SCH (08:25)
[2017-08-06] MEDS: Levothyroxine Sodium 100 MCG TAB PO SCH (08:26)
[2017-08-06] MEDS: Famotidine/PF 20 mg/2ml Vial SLOW IVP SCH ×2 (08:26→21:35)
[2017-08-06] MEDS: Folic Acid 1 MG TAB PO SCH (08:26)
[2017-08-06] MEDS: Multivit, Therapeutic 1 TAB PO SCH (08:26)
[2017-08-06] MEDS: Enoxaparin Sodium 40 MG/0.4 ML SYRINGE SC SCH (08:27)
[2017-08-06] MEDS: Polyethylene Glycol 3350 17 GM Packet PO SCH (08:47)
[2017-08-06] MEDS ORDERED: Non-Formulary Item 1 EACH (Celecoxib [Celebrex] 200 MG) PO SCH (09:00)
[2017-08-06] MEDS ORDERED: PHENYTOIN SODIUM 200 MG PO SCH (09:00)
[2017-08-06] MEDS ORDERED: Non-Formulary Item 1 EACH (Multivitamin [Daily Multiple Vitamin] 1 EACH) PO SCH (09:00)
--- NOTE | 2017-08-06 09:00 | PRG ---
DATE OF SERVICE: 08/06/2017 The patient is doing reasonably well, seems ready for rehab. PHYSICAL EXAMINATION: VITAL SIGNS: Temperature 97.7, pulse 76, respirations 18, O2 sat 97, blood pressure 107/70. HEENT: Unremarkable. NECK: Supple. No JVD. CHEST: Clear without wheezing. CARDIAC: S1 and S2 regular. ABDOMEN: Soft. EXTREMITIES: No edema. LABORATORY: White blood cell count 6.9, hematocrit 35.6, platelet count 181. Sodium 142, potassium 4.2, chloride 110, CO2 25, BUN 21, creatinine 0.7, glucose 122. ASSESSMENT: 1. Status post respiratory failure. 2. Status post massive aspiration. RECOMMENDATION: 1. I think he is stable enough to go over to rehabilitation. 2. I would taper oral steroids over about a week. 3. Should have had enough antibiotics to discontinue. 4. Increase activity as tolerated.
[2017-08-06 14:17] VITALS: BMI 26.5
--- NOTE | 2017-08-06 20:18 | PRG-2 ---
DATE OF SERVICE: 08/06/2017 TRANSITION OF CARE NOTE SUBJECTIVE: Mr. Bryson is a 56-year-old with a past medical history of Klinefelter syndrome and kno wn seizure disorder who presented on 07/29/2017 with recurrent seizures. The morning of admission, he was noted to be overall not feeling well and had a little bit of a stomachache. He went to lay d own on the couch and at that time began to have a seizure. His mom gave him midazolam she had at [facility] x2 and when the seizures did not cassandra, she called EMS. He was intubated on the field for concer n of aspiration, inability to protect the airway and was brought to the emergency room. Upon arriva l, his temperature was 105 degree Fahrenheit and he was hypertensive and tachycardic. He was fluid resuscitated and with persistent hypotension, was started on Levophed drip. He was transferred to [facility] ICU where he remained intubated until 08/04/2017. Initially, his hemodynamic instability resolve d and pressors were able to be discontinued within approximately 36 hours of admission. Neurology w as consulted and recommended resumption of patient's home medications. Dr. Prieto of Pulmonology w as consulted and assisted in ventilation management throughout the hospitalization. The patient con tinued to steadily improve throughout his first week of hospitalization with persistently stable vit al signs and ability to be weaned daily down on his settings. He did not have any further seizures after admission. The patient's initial chest x-ray showed some possible evidence of aspiration pneu monia and therefore he was started on vancomycin and Zosyn empirically while blood and urine culture s were drawn. His cultures were negative and the vancomycin was stopped upon negative cultures. [facility] Zosyn was continued for 8 days and discontinued on 08/06/2017. He also received IV steroids this hospitalization and will be discharged on 20 mg of prednisone for 2 additional days. The patient was noted to be deconditioned after his week on the ventilator and has worked with physi mian therapy as an inpatient. Family takes care of him and his two older parents are his primary car egivers. At this time, they are not able to care for him in his deconditioned state and this was ap propriate for him to be placed in a long-term facility for physical therapy, incentive spirome try, and additional monitoring temporarily.
[2017-08-06] MEDS ORDERED: DOCUSATE SODIUM PO SCH (21:00)
[2017-08-06] MEDS ORDERED: Docusate (Surfak) 240 MG CAP PO SCH (21:00)
[2017-08-06] MEDS: Atorvastatin Calcium 40 MG TAB PO SCH (21:34)
[2017-08-06] MEDS: Zonisamide 100 MG CAP PO SCH (21:36)
[2017-08-07] MEDS: Famotidine/PF 20 mg/2ml Vial SLOW IVP SCH (07:33)
[2017-08-07] MEDS: CeleCOXIB 100 MG CAP PO SCH (07:33)
[2017-08-07] MEDS: Levothyroxine Sodium 100 MCG TAB PO SCH (07:33)
[2017-08-07] MEDS: Folic Acid 1 MG TAB PO SCH (07:34)
[2017-08-07] MEDS: Enoxaparin Sodium 40 MG/0.4 ML SYRINGE SC SCH (07:35)
[2017-08-07] MEDS: Docusate Sodium 100 MG/10 ML UDCUP PO SCH (07:35)
[2017-08-07] MEDS: Multivit, Therapeutic 1 TAB PO SCH (07:35)
[2017-08-07] MEDS: Polyethylene Glycol 3350 17 GM Packet PO SCH (07:53)
[2017-08-07] MEDS ORDERED: predniSONE 20 MG TAB PO SCH (08:00)
[2017-08-07 08:02] VITALS: BP 107/72; TEMP 97.1
--- NOTE | 2017-08-07 08:40 | PDOC.FM ---
- Subjective Subjective: Pt had an episode of coughing last night that may have been associated with taking his meds. He never became hypoxic and has not had a fever. He has no new complaints. Review of symptoms includes complaints of seasonal allergies. - Objective Vital Signs & Weight: Vital Signs (12 hours) Temp Pulse Resp BP Pulse Ox 08/07/17 08:00 97.1 F L 70 22 H 107/72 95 08/07/17 06:38 80 16 08/07/17 05:26 98.4 F 73 18 114/76 95 08/07/17 02:36 97 08/07/17 01:56 79 16 96 08/07/17 01:23 98.0 F 79 18 115/74 96 08/06/17 22:26 81 16 93 L Weight Admit Weight 109.769 kg Weight 103.918 kg Most Recent Monitor Data Heart Rate from ECG 78 NIBP 128/63 NIBP BP-Mean 98 Respiration from ECG 17 SpO2 100 I&O: 08/06/17 08/07/17 08/08/17 06:59 06:59 06:59 Intake Total 428 920 Output Total 475 Balance -47 920 Result Diagrams: 08/06/17 05:05 08/06/17 05:05 Phys Exam - Physical Examination Constitutional: NAD HEENT: moist MMs Neck: no nodes, no JVD Wheezing throughout w/basilar crackles on the right Cardiovascular: RRR, no significant murmur Gastrointestinal: soft, non-tender, no distention, positive bowel sounds Musculoskeletal: no edema Neurological: non-focal Psychiatric: normal affect, A&O x 3 Deviation from normal: Pt is MR, at his baseline Skin: no rash, normal turgor Dx/Plan - Plan Plan: Plan: 1. Septic shock, resolved -All abx dc'd. -Pt is ready for dc today 2. Aspiration PNA - Zosyn () - PO prednisone for 3 days - Continue PT/OT/ST/incentive spirometery - coughing episode does not appear to have been due to aspiration. Pt is afebrile, O2 sat is normal, no increased work of breathing, PE is unchanged from yesterday. 3. Seizure D/O - Neurology recommends no further workup or medication changes - Dilantin at therapeutic level - Continue home medications of Zonisamide and clobezam - Appreciate Dr. Mendiola's assistance - Follow-up with Dr. Mendez within 1 week of D/C 4. Klinefelter's syndrome - Baseline of intellectual disability and short term memory loss 5. Hypothyroidism - TSH WNL - Continue home levothyroxine 6. HLD - Continue home atorvastatin 7. Constipation, resolved - Home regimen of miralax and colace PRN 8. Elevated BG on morning labs - A1c 5.2 PPX: Lovenox and pepcid Dispo: Prepare for D/C to rehab today.
--- NOTE | 2017-08-07 08:49 | PRG ---
DATE OF SERVICE: 08/07/2017 The patient is doing well. He is supposed to go to rehab. The patient is doing well with no compla ints. PHYSICAL EXAMINATION: VITAL SIGNS: Temperature 97.1, pulse 70, respirations 22, O2 sat 95%, blood pressure 107/72. HEENT: Unremarkable. NECK: No JVD. CHEST: Clear. CARDIAC: S1, S2 regular. ABDOMEN: Soft. EXTREMITIES: No edema. ASSESSMENT: Post-pneumonia and post respiratory failure, now stable. PLAN: Okay to go to rehab.
--- NOTE | 2017-08-07 12:02 | DIS-2 ---
DATE OF ADMISSION: 07/29/2017 DATE OF DISCHARGE: 08/07/2017 RESIDENT: Rickie Forbes D.O. ADMITTING ATTENDING: Barbara Allison M.D. DISCHARGE ATTENDING: Garrison Reyna M.D. CONSULTATIONS: Jd Prieto M.D., Pulmonology. PROCEDURES: Bronchoscopy and intubation. PRIMARY DIAGNOSIS: Severe sepsis secondary to aspiration pneumonia. SECONDARY DIAGNOSES: 1. Seizure. 2. Klinefelter syndrome. 3. Mental retardation. 4. Hypothyroidism. 5. Hyperlipidemia. 6. Mood disorder. 7. Acute hypoxic respiratory failure. DISCHARGE MEDICATIONS: Docusate 50 mg p.o. at bedtime, Zonegran 300 mg p.o. at bedtime, Dilantin 20 0 mg p.o. b.i.d. and 100 mg every third day, levothyroxine 100 mcg daily, folic acid 400 mcg daily, Krill oil 1000 daily, multivitamin, atorvastatin 40 mg p.o. at bedtime, Effexor 37.5 mg p.o. daily, midazolam 1 mg p.r.n. seizure, Onfi 10 mg p.o. at bedtime, MiraLax 17 mg p.o. daily, Celebrex 200 mg daily, Seroquel 25 mg daily, and Benefiber 2 teaspoons p.o. daily. Prednisone 20 mg p.o. daily x2 days. DISCONTINUED MEDICATIONS: None. HOSPITAL COURSE: Mr. Piña is a 56-year-old male with a past medical history of Klinefelter syndrom e and known seizure disorder who presented to the emergency room on 07/29/2017 with recurrent seizur es. On admission he was noted had not been feeling well, having a stomachache. He went to lay down and began to have a seizure. His mom gave him the midazolam x2 which did not stop the seizure. Kurt guzman called EMS. He was intubated in the field with concern for aspiration and was brought to the [facility] room. On arrival, temperature was 105 degrees Fahrenheit. He was hypertensive and tachycardi c. He was given fluid resuscitation. Due to persistent hypotension, he was started on Levophed dri p and was transferred to the ICU. He was intubated until 08/04/2017. Initially hemodynamic stabili ty resolved and pressors were able to be discontinued within 36 hours of admission. Neuro was consu lted and recommendation of resumption of the patient's home medications. Dr. Prieto, Pulmonology w as consulted and assisted in vent management. The patient continued to improve during the hospitali zation with persistently stable vital signs and was able to be weaned daily on his vent settings. Alexandria guzman had no more seizures after admission. The patient's initial chest x-ray showed possible evidence of aspiration pneumonia, so he was started on vancomycin and Zosyn and cultures were drawn. Cultur es were negative and vancomycin was stopped. Zosyn continued for 8 days and was stopped on 08/06/20 17. He receive IV steroids during his hospitalization and was discharged on 20 of prednisone. The patient was noted to be extremely deconditioned and so he will be discharged to inpatient rehab faci lity as his elderly parents are his primary caregivers. He is unable to take care for himself, this facility would be best for his rehab. He will also be sent for incentive spirometry and an additio nal monitoring that caregivers are incapable of doing. DISPOSITION: Stable. DISCHARGE LOCATION: An inpatient rehab. DIET: Regular. ACTIVITIES: Ad susan with PT. FOLLOWUP: Follow up within 1 week of discharge from inpatient rehab with primary care physician.
--- NOTE | 2017-08-07 12:05 | ADD-PRG ---
DATE OF SERVICE: 08/07/2017 ADDENDUM Mr. Piña is a 56-year-old white male patient with history of Klinefelter syndrome, who has been in the hospital during the last week for uncontrolled or poorly controlled seizures as well as aspirati on pneumonia. Arrangements have been made for him to be placed into a long-term care facility and w e are awaiting this placement. In the event, his seizure disorder is now controlled and his pneumon ia has been adequately treated. This morning, he is awake, alert, has a slight dry cough, but is in no distress and is afebrile.
--- NOTE | 2017-08-08 15:53 | EKG ---
Test Reason : A FIB Blood Pressure : / mmHG Vent. Rate : 072 BPM Atrial Rate : 072 BPM P-R Int : 170 ms QRS Dur : 092 ms QT Int : 402 ms P-R-T Axes : 049 -19 046 degrees QTc Int : 440 ms Normal sinus rhythm Inferior infarct (cited on or before 03-AUG-2015) Abnormal ECG When compared with ECG of 29-JUL-2017 09:58, (Unconfirmed) Vent. rate has decreased BY [address] Don HANDY ([id number]) on 08/08/2017 3:53:34 PM Referred By: Confirmed By:DR. Don HANDY
== END 2017-08-07 14:25 | DRG 853 ==
LOC: ERS 09:52 → CCU 11:07 → T4-B 08-05 13:18
PROVIDERS: ADMIT Family Medicine; ATTEND Family Medicine
PROC: 5A1955Z Respiratory Ventilation, Greater than 96 Consecutive Hours (ICD-10-PCS; principal; 2017-07-29)
PROC: 02HV33Z Insertion of Infusion Device into Superior Vena Cava, Percutaneous Approach (ICD-10-PCS; 2017-07-29)
PROC: 0BJ08ZZ Inspection of Tracheobronchial Tree, Via Natural or Artificial Opening Endoscopic (ICD-10-PCS; 2017-07-29)
PROC: 0BH17EZ Insertion of Endotracheal Airway into Trachea, Via Natural or Artificial Opening (ICD-10-PCS; 2017-07-29)
PROC: 0B9L8ZX Drainage of Left Lung, Via Natural or Artificial Opening Endoscopic, Diagnostic (ICD-10-PCS; 2017-08-01)
DX: A41.9 Sepsis, unspecified organism (principal); J96.01 Acute respiratory failure with hypoxia; R65.21 Severe sepsis with septic shock; J69.0 Pneumonitis due to inhalation of food and vomit; N17.9 Acute kidney failure, unspecified; E87.2 Acidosis; D69.6 Thrombocytopenia, unspecified; J98.11 Atelectasis; E87.0 Hyperosmolality and hypernatremia; Q98.4 Klinefelter syndrome, unspecified; F79 Unspecified intellectual disabilities; E03.9 Hypothyroidism, unspecified; E87.70 Fluid overload, unspecified; E87.8 Other disorders of electrolyte and fluid balance, not elsewhere classified; F39 Unspecified mood [affective] disorder; E78.5 Hyperlipidemia, unspecified; M19.90 Unspecified osteoarthritis, unspecified site; Q54.9 Hypospadias, unspecified; K59.00 Constipation, unspecified; G40.401 Other generalized epilepsy and epileptic syndromes, not intractable, with status epilepticus; E87.6 Hypokalemia; E86.0 Dehydration
CPT/HCPCS: 36415; 36556; 51702; 70450; 71010; 74020; 80048; 80053; 80185; 80202; 81003; 82550; 82805; 83036; 83605; 83735; 84100; 84443; 85025; 87040; 87086; 93005; 93010; 94002; 94003; 94640; 96365; 96368; 96375; 96376; A4216; G8978-GP-CL; G8979-GP-CI; G8987-GO-CK; G8988-GO-CI; G8996-GN-CK; G8997-GN-CI; G8997-GN-CK; J0131; J0692; J0696; J1650; J1940; J2060; J2270; J2543; J2704; J2920; J3010; J3370; J3411; J3475; J3480; J7050; J7506; J7620; Q2009; S0028

== ENCOUNTER 2017-08-22 15:56 | Inpatient (IN) | payer MEDICARE, OTHER, MEDICAID ==
[2017-08-22 17:19] LABS: #Basophils 0.1 thou/uL (0.0-0.2); #Lymphocytes 2.4 thou/uL (1.20-3.40); #Monocytes 0.7 thou/uL (0.11-0.59); #Neutrophils 3.9 thou/uL (1.40-6.50); %Basophils 1.5 % (0.0-1.0); %Eosinophils 0.2 % (0.0-10.0); %Lymphocytes 33.2 % (21.0-51.0); %Monocytes 10.4 % (0.0-10.0); Mean Platelet Volume 7.1 fL (7.4-10.4); Red Blood Cell (RBC) Count 4.29 mill/uL (4.70-6.10); White Blood Cell (WBC) Count 7.1 thou/uL (4.8-10.8)
[2017-08-22 17:20] LABS: PTT 30.9 SEC (22.9-36.1); Prothrombin Time 13.4 SEC (12.0-14.7)
[2017-08-22 17:31] LABS: Polychromasia SLIGHT = 2-3 cells (100X) (0-2/hpf)
[2017-08-22 17:33] LABS: ALT (SGPT) 26 U/L (8-55); AST (SGOT) 21 U/L (5-34); Alkaline Phosphatase 79 U/L (40-150); Anion Gap 12 mmol/L (10-20); BUN (Urea Nitrogen) 16 mg/dL (8.4-25.7); Bilirubin, Total 0.2 mg/dL (0.2-1.2); CK (CPK) 24 U/L (30-200); Calc. Creatinine Clearance 0 mL/min (70-130); Calcium 9.3 mg/dL (7.8-10.44); Carbon Dioxide 27 mmol/L (22-29); Chloride 106 mmol/L (98-107); Estimated GFR-MDRD Greater than 90; Globulin 2.5 g/dL (2.4-3.5)
[2017-08-22 17:37] LABS: Troponin I Less than 0.010 ng/mL (< 0.028)
--- NOTE | 2017-08-22 17:40 | ULT ---
LEFT LOWER EXTREMITY VENOUS DOPPLER 08/22/17 HISTORY: Left lower extremity pain. COMPARISON: None. TECHNIQUE: Real time garcia scale, color doppler and spectral analysis of the left lower extremity venous system w as performed with the linear transducer. FINDINGS: The left common femoral, femoral, proximal portion of the greater saphenous and deep femoral veins as well as the popliteal and posterior tibial veins were interrogated. There is occlusive clot within t he left common femoral, femoral vein as well as the deep femoral vein and partial thrombus within the popliteal vein. Posterior tibial and saphenous veins are patent. IMPRESSION: Large volume left lower extremity deep venous thrombosis. ER nurse was notified of findings in person by the technologist. POS: DAPHNE
--- NOTE | 2017-08-22 17:43 | RAD ---
CHEST ONE VIEW 08/22/17 HISTORY: Edema. COMPARISON: Chest one view, 08/06/17. FINDINGS: Heart size is prominent. Pulmonary edema is improved from comparison examination with mild pulmonary venous hypertension remaining. No pneumothorax. No large effusion. IMPRESSION: Cardiomegaly with improving pulmonary edema from 08/06/17. POS: H
[2017-08-22] MEDS ORDERED: Enoxaparin Sodium 100 MG/ML SYRINGE ONE (17:55)
[2017-08-22] MEDS ORDERED: Morphine 4 MG/ML VIAL SLOW IVP PRN (19:35)
[2017-08-22] MEDS ORDERED: Ondansetron HCl/PF 4 MG/2 ML Vial IVP PRN (19:35)
[2017-08-22] MEDS ORDERED: HYDROcodone/Acetaminophen 5/325 mg Tablet PO PRN ×2 (19:35)
[2017-08-22] MEDS ORDERED: Morphine PF 1 MG/ML SYR IVP PRN (19:35)
[2017-08-22] MEDS ORDERED: Acetaminophen 325 MG TAB PO PRN (19:35)
[2017-08-22] MEDS ORDERED: Ondansetron ODT 4 MG TAB SL PRN (19:35)
[2017-08-22] MEDS ORDERED: WHEAT DEXTRIN PO SCH (21:00)
[2017-08-22] MEDS ORDERED: Zonisamide 100 MG CAP PO SCH (21:00)
[2017-08-22] MEDS ORDERED: Atorvastatin Calcium 40 MG TAB PO SCH (21:00)
[2017-08-22] MEDS ORDERED: Docusate (Surfak) 240 MG CAP PO SCH (21:00)
[2017-08-22 21:15] LABS: Troponin I 0.014 ng/mL (< 0.028)
[2017-08-22 22:55] VITALS: BMI 25.9
[2017-08-22 23:39] LABS: Troponin I Less than 0.010 ng/mL (< 0.028)
[2017-08-23 05:04] LABS: Anion Gap 11 mmol/L (10-20); BUN (Urea Nitrogen) 14 mg/dL (8.4-25.7); Calc. Creatinine Clearance 178 mL/min (70-130); Calcium 9.1 mg/dL (7.8-10.44); Carbon Dioxide 26 mmol/L (22-29); Chloride 108 mmol/L (98-107); Estimated GFR-MDRD Greater than 90
[2017-08-23 05:18] LABS: Band 1 % (5-11); Hematocrit 39.4 % (42.0-52.0); Mean Platelet Volume 7.1 fL (7.4-10.4); Neutrophil 38 % (42-75); Red Blood Cell (RBC) Count 4.04 mill/uL (4.70-6.10); White Blood Cell (WBC) Count 6.5 thou/uL (4.8-10.8)
[2017-08-23] MEDS ORDERED: Levothyroxine Sodium 100 MCG TAB PO SCH (06:00)
--- NOTE | 2017-08-23 07:25 | HP-2 ---
DATE OF ADMISSION: 08/22/2017 CODE STATUS: FULL. PRIMARY CARE PHYSICIAN: Dr. Ramirez. ATTENDING: Dr. Pedersen. RESIDENT: Dr. Villela. HISTORIAN: Father. CHIEF COMPLAINT: Left leg swelling. HISTORY OF PRESENT ILLNESS: This is a 56-year-old male with past medical history of Klinefelter synd anisha, seizures, short term memory loss, hyperlipidemia, who was recently hospitalized after a seizure for concern for aspiration pneumonia. He has been in rehabilitation the past 2 weeks and today pres ented due to left lower extremity swelling. The patient's father reported that the patient started t alking about discomfort in his leg two days ago; however, he has been doing rehab exercises, so they thought it was due to soreness. The father noticed the swelling today, so he was brought in for furt her evaluation. No history of DVT or PE in the past. No family history of clotting disorders. In t he ER, he was given Lovenox 1 mg/kg and aspirin 324 mg p.o. PAST MEDICAL HISTORY: 1. Klinefelter syndrome. 2. Seizure disorder. 3. 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 4. Hyperlipidemia. 5. Hypothyroidism. PAST SURGICAL HISTORY: 1. Cystojejunostomy and Alberto-en-Y. 2. Hydrocele. ALLERGIES: LEVAQUIN causes GI upset, RED DYE causes hives. MEDICATIONS: 1. Docusate 50 mg at bedtime. 2. Zonegran 300 mg at bedtime. 3. Dilantin 200 mg b.i.d. and 100 mg every third day. 4. Synthroid 100 mcg daily. 5. Folic acid 400 mcg daily. 6. Krill oil 1000 mg daily. 7. Atorvastatin 40 mg at bedtime. 8. Effexor 37.5 mg daily. 9. Midazolam 1 mg p.r.n. seizures. 10. Onfi 10 mg at bedtime. 11. Celebrex 200 mg daily. 12. Seroquel 25 mg at bedtime. FAMILY HISTORY: Mother with hypertension, ulcerative colitis, breast cancer. Father with coronary a rtery disease, greater than 55 years old and hypertension. SOCIAL HISTORY: Denies tobacco, alcohol, or drug use. REVIEW OF SYSTEMS: General: Negative for fever, chills, fatigue. ENT: Negative for rhinorrhea, so re throat. Respiratory: Positive for cough. Negative for shortness of breath. Cardiovascular: Negative for chest pain or palpitations. Positive for left lower extremity edema. Gastrointestinal: Negative for vomiting, diarrhea. Genitourinary: Negative for dysuria, polyuria. Skin: Negative for rashes or jaundice. Musculoskeletal: Positive for left lower extremity pain. Neurologic: Negative for weakness, numbness or seizures. Psychiatric: Negative for anxiety or depr ession. PHYSICAL EXAMINATION: VITAL SIGNS: Blood pressure 135/98, pulse 76, respiratory rate 18, temperature 98.7, pulse ox 97% on room air. Current weight 99.79 kilograms. GENERAL: Alert, oriented x2, no acute distress, well-nourished, not appropriately interactive. EYES: PERRLA. Extraocular muscles intact. Conjunctivae within normal limits. ENT: Nasal mucosa and oropharynx within normal limits. NECK: Supple, no lymphadenopathy, no thyromegaly. CARDIOVASCULAR: Regular rate and rhythm. No murmurs, gallops, 2+ radial pulses, palpable pedal puls es. RESPIRATORY: Normal effort, no retractions. Clear to auscultation bilaterally. SKIN: Warm, dry. No cyanosis. Discoloration of the left lower extremity. ABDOMEN: Soft, nontender to palpation, normoactive bowel sounds. No mass or distention. EXTREMITIES: No cyanosis. Left lower extremity edema. MUSCULOSKELETAL: Structure and tone within normal limits. Full range of motion. NEUROLOGICAL: No focal deficits. Sensation within normal limits. PSYCHIATRIC: Appropriate. LABORATORY DATA AND X-RAY FINDINGS: WBC 7.1, hemoglobin 13.6, hematocrit 42.0, platelets 110. Sodiu m 140, potassium 4.7, chloride 106, CO2 27, BUN 16, creatinine 0.81, GFR greater than 90, glucose 106 , calcium 9.3, AST 21, ALT 26, alkaline phosphatase 79, T-bilirubin 0.2. PT 13.4, INR 1.0, PTT 30.9. BNP less than 10. CK 24, CK-MB 1.0, troponin less than 0.01. Chest x-ray showed cardiomegaly with improving pulmonary edema. IMAGING: Ultrasound of the left lower extremity showed large volume left lower extremity DVT. ASSESSMENT AND PLAN: This is a 56-year-old male who presents with: 1. Acute left lower extremity deep venous thrombosis involving the proximal veins. We will give Kip enox 100 mg b.i.d. No current signs or symptoms of pulmonary embolism. We will monitor on telemetry . We will transition to orals after few days depending on the patient's insurance. 2. Seizure disorder. No seizures since prior to the last admission. We will continue home medicati ons. We will consult PT, OT to continue the patient's rehabilitation. 3. Hypothyroidism. Continue home medications. 4. Hyperlipidemia. Continue home medications. 5. Klinefelter's. Intellectually disabled. Parents are primary caretakers. 6. Venous thromboembolism prophylaxis. The patient on therapeutic Lovenox. DISPOSITION: Admit to tele. Symptomatic medications will be provided. History and physical exam as well as management discussed with Dr. Pedersen.
--- NOTE | 2017-08-23 07:32 | PDOC.FM ---
- Subjective Subjective: Pt did well over night and has no specific complaints outside of some LLE pain that has improved. He denies chest pain or SOB. There were no acute issues since admission. - Objective MAR Reviewed: Yes Vital Signs & Weight: Vital Signs (12 hours) Temp Pulse Resp BP Pulse Ox 08/23/17 03:00 98.1 F 63 18 112/59 L 94 L 08/22/17 19:40 98.2 F 69 20 142/80 H 95 08/22/17 19:35 98.2 F 69 20 95 Weight Weight 104.236 kg I&O: 08/22/17 08/23/17 08/24/17 06:59 06:59 06:59 Intake Total 100 Output Total 350 Balance -250 Result Diagrams: 08/23/17 04:20 08/23/17 04:20 <Rickie Forbes - Last Filed: 08/23/17 11:02> - Objective Vital Signs & Weight: Vital Signs (12 hours) Temp Pulse Resp BP Pulse Ox 08/23/17 08:57 97.8 F 73 17 109/61 98 08/23/17 03:00 98.1 F 63 18 112/59 L 94 L Weight Weight 104.236 kg I&O: 08/22/17 08/23/17 08/24/17 06:59 06:59 06:59 Intake Total 100 Output Total 350 Balance -250 Result Diagrams: 08/23/17 04:20 08/23/17 04:20 <Damon Pedersen - Last Filed: 08/23/17 11:53> Phys Exam - Physical Examination Constitutional: NAD HEENT: PERRLA, moist MMs, oral pharynx no lesions Neck: no JVD, full ROM Respiratory: clear to auscultation bilateral Cardiovascular: RRR, no significant murmur Gastrointestinal: soft, non-tender, no distention LLE edema, mildly tender over lateral thigh Neurological: non-focal Lymphatic: no nodes Psychiatric: normal affect, A&O x 3 Deviation from normal: Pt at his functional baseline Skin: no rash <Rickie Forbes - Last Filed: 08/23/17 11:02> Dx/Plan (1) Left leg DVT Code(s): I82.402 - ACUTE EMBOLISM AND THOMBOS UNSP DEEP VEINS OF L LOW EXTREM Status: Acute QualifierTitle: Affected thrombotic vein of extremity: femoral Chronicity : acute Qualified Code(s): I82.412 - Acute embolism and thrombosis of left femoral vein (2) Epilepsy symptomatic, generalized Code(s): G40.409 - OTH GENERALIZED EPILEPSY, NOT INTRACTABLE, W/O STAT EPI Status: Chronic (3) Klinefelter syndrome Code(s): Q98.4 - KLINEFELTER SYNDROME, UNSPECIFIED Status: Chronic (4) Hyperlipidemia Code(s): E78.5 - HYPERLIPIDEMIA, UNSPECIFIED Status: Chronic QualifierTitle: Hyperlipidemia type: unspecified Qualified Code(s): E78.5 - Hyperlipidemia, unspecified (5) Hypothyroidism Code(s): E03.9 - HYPOTHYROIDISM, UNSPECIFIED Status: Chronic QualifierTitle: Hypothyroidism type: unspecified Qualified Code(s): E03.9 - Hypothyroidism, unspecified - Plan Plan: 1. DVT -theraputic lovenox -move to NOAC/warfarin pending insurance coverage -monitor for chest pain and increased O2 demand 2. Klinefelter Syndrome -pt has a baseline MR -currently at baseline 3. Seizure disorder -continue home phenytoin 4. HLD -continue statin 5. hypothyroid -continue synthroid Dispo: Home after move to oral anticoagulation <Rickie Forbes - Last Filed: 08/23/17 11:02> Attending Addendum - Attending Addendum I personally evaluated the patient and discussed the management with Dr. Forbes. I agree with the History, Examination, Assessment and Plan documented above with any addition or exceptions noted below. Patient has no complaints this morning. He is on therapeutic lovenox for anticoagulation. Would be good candidate for NOAC, but need to verify with insurance. He will need anticoagulation for at least 3 months, though I am unsure if Klinefelter's syndrome puts him at risk for future DVT. We will advise that he limit physical activity for 48-72 hours until clot organizes at which time he can resume therapy services. If approved for NOAC, he can be discharged later today. Otherwise, will need bridging with lovenox-->warfarin. No other active issues at this time. <Damon Pedersen - Last Filed: 08/23/17 11:53>
[2017-08-23] MEDS ORDERED: Fish Oil 1,000 MG CAP PO SCH (09:00)
[2017-08-23] MEDS ORDERED: CeleCOXIB 100 MG CAP PO SCH (09:00)
[2017-08-23] MEDS ORDERED: Enoxaparin Sodium 100 MG/ML SYRINGE SC SCH (09:00)
[2017-08-23] MEDS ORDERED: Multivit, Therapeutic 1 TAB PO SCH (09:00)
[2017-08-23] MEDS ORDERED: FLU VACC QS2017-18 36 mo. & older 0.5 ML SYRINGE IM ONE (09:00)
[2017-08-23] MEDS ORDERED: Folic Acid 1 MG TAB PO SCH (09:00)
[2017-08-23] MEDS ORDERED: Polyethylene Glycol 3350 17 GM Packet PO SCH (09:00)
--- NOTE | 2017-08-23 12:23 | PDOC.EVN ---
Attending Addendum - Attending Addendum I personally evaluated the patient and discussed the management with Dr. Villela. I agree with the History, Examination, Assessment and Plan documented in her H& P with any addition or exceptions noted below. Patient with recent hospitalization for seizure with subsequent discharge to inpatient rehab presenting for admission for DVT after it was noticed he had unilateral swelling and redness in the leg. His labs appear normal. He has been given therapeutic lovenox and will be admitted to hospital. He has no vitals that are abnormal and no chest pain, difficulty breathing, etc. that would suggest PE. At this time, it is thought his DVT may be due to immobility associated with recent hospitalization and rehab placement, but could be due to underlying venous issues a result of his Klinefelter syndrome. He will need OAC for at least 3 months. We will work to get on newer agent, but if that is financially not feasible, will bridge to warfarin. No other active issues at this time.
[2017-08-23 16:18] VITALS: TEMP 97.6
[2017-08-23 18:00] VITALS: BP 120/73
--- NOTE | 2017-08-25 06:48 | DIS-2 ---
DATE OF ADMISSION: 08/22/2017 DATE OF DISCHARGE: 08/23/2017 RESIDENT: Rickie Forbes D.O. ADMITTING ATTENDING: Damon Pedersen M.D. DISCHARGE ATTENDING: Damon Pedersen M.D. CONSULTS: None. PROCEDURES: None. PRIMARY DIAGNOSIS: Left lower extremity deep vein thrombosis. SECONDARY DIAGNOSES: Klinefelter syndrome, seizure disorder, hypothyroidism, hyperlipidemia. DISCHARGE MEDICATIONS: Dulcolax 240 mg p.o. at bedtime, Zonegran 300 mg p.o. at bedtime, phenytoin 1 00 mg p.o. daily, Synthroid 100 mcg p.o. daily, folic acid 400 mg p.o. daily, Krill oil 1000 mg p.o. daily, multivitamin one daily, atorvastatin 40 mg p.o. at bedtime, Effexor 37.5 mg p.o. daily, Clobaz am 10 mg p.o. at bedtime, MiraLax 17 gm p.o. daily, Celebrex 200 mg p.o. daily, Seroquel 25 mg p.o. d aily, and Xarelto 20 mg p.o. daily. DISCONTINUED MEDICATIONS: None. HOSPITAL COURSE: The patient was admitted from inpatient rehabilitation facility with concern for DV T. Approximately 2 days prior, the patient had worsening left lower extremity pain and tenderness. On arrival to the emergency room, Doppler was performed that showed a significant DVT that included t he common femoral vein, femoral vein and popliteal vein, and saphenous vein. There was no concern fo r PE as the patient had no chest pain, no shortness of breath, no increased oxygen need. The patient was put on therapeutic Lovenox in the emergency room and was admitted for observation. The followin day, the patient was stable to discharge. Because the patient was already planning on returning [facility] from inpatient rehab on 08/25/2017, determination made that he would just go home today and his [facility] already has been set up. After discussing risks and benefits with the patient and his michelle r of corporate associate attorney, parents, it was determined to not have the patient anticoagulated on NOAC rather than warfarin for 3 months' time due to the first time DVT. It was understood that the patient would need close followup inpatient and would need to return to the emergency room if the patient were to begin to exhibit signs of a PE to include shortness of breath, chest pain, and diaphoresis. DISPOSITION: Stable. DISCHARGE INSTRUCTIONS: 1. Location: Home with home health. 2. Diet: Regular. 3. Activity: Ad susan without vigorous activity of left lower extremity for 3 to 5 days. 4. Followup: Follow up with PCP within 1 week.
== END 2017-08-23 18:22 | disposition home health service (06) | DRG 301 ==
LOC: ERS 15:56 → 2NO 19:07
PROVIDERS: ADMIT Student in an Organized Health Care Education/Training Program; ATTEND Student in an Organized Health Care Education/Training Program
DX: I82.412 Acute embolism and thrombosis of left femoral vein (principal); G40.409 Other generalized epilepsy and epileptic syndromes, not intractable, without status epilepticus; Q98.4 Klinefelter syndrome, unspecified; E78.5 Hyperlipidemia, unspecified; E03.9 Hypothyroidism, unspecified
CPT/HCPCS: 36415; 71010; 80048; 80053; 82553; 83880; 84484; 85025; 85610; 85730; 93005; 96372; A4216; G8978-GP-CL; G8979-GP-CK; J1650

== ENCOUNTER 2017-09-13 14:18 | Emergency (ER) | payer MEDICARE, OTHER, MEDICAID ==
[2017-09-13 14:59] LABS: #Lymphocytes 2.1 thou/uL (1.20-3.40); #Monocytes 0.9 thou/uL (0.11-0.59); #Neutrophils 3.8 thou/uL (1.40-6.50); %Basophils 0.2 % (0.0-1.0); %Eosinophils 0.2 % (0.0-10.0); %Lymphocytes 31.2 % (21.0-51.0); %Monocytes 12.6 % (0.0-10.0); Mean Platelet Volume 6.4 fL (7.4-10.4); Red Blood Cell (RBC) Count 4.35 mill/uL (4.70-6.10); White Blood Cell (WBC) Count 6.9 thou/uL (4.8-10.8)
[2017-09-13 15:14] LABS: ALT (SGPT) 20 U/L (8-55); AST (SGOT) 16 U/L (5-34); Alkaline Phosphatase 109 U/L (40-150); Anion Gap 12 mmol/L (10-20); BUN (Urea Nitrogen) 21 mg/dL (8.4-25.7); Bilirubin, Total 0.3 mg/dL (0.2-1.2); Calc. Creatinine Clearance 0 mL/min (70-130); Calcium 9.3 mg/dL (7.8-10.44); Carbon Dioxide 24 mmol/L (22-29); Chloride 111 mmol/L (98-107); Estimated GFR-MDRD Greater than 90; Globulin 2.7 g/dL (2.4-3.5); Protein, Total 6.5 g/dL (6.0-8.3)
[2017-09-13 16:15] LABS: Prothrombin Time 15.4 SEC (12.0-14.7)
--- NOTE | 2017-09-13 18:07 | RAD ---
FRONTAL AND LATERAL IMAGING LEFT TIBIA AND FIBULA 09/13/17 COMPARISON: None. HISTORY: Leg swelling, history of DVT. FINDINGS: No fracture or evidence of dislocation is seen. No radiopaque foreign body or subcutaneous gas. The b ones are demineralized. Incompletely imaged postoperative hardware overlies the ankle. IMPRESSION: No acute osseous abnormality. POS: [facility]
--- NOTE | 2017-09-13 18:10 | ULT ---
ULTRASOUND WITH DOPPLER DUPLEX VENOUS LOWER EXTREMITY LEFT CPT: 60701 ICD-10-PCS: B54D HISTORY: History of DVT, left leg edema. TECHNIQUE: Color flow Doppler, spectral waveform analysis of pulsed Doppler, and garcia-scale imaging with danica ilir and augmentation, were used to evaluate the left common femoral, femoral, popliteal, posterior t ibial, and superficial femoral, veins; and the proximal portions of the profunda femoral and greater saphenous, veins. FINDINGS: There is absence of appropriate compressibility and reduced flow involving the mid to distal femoral vein as well as the popliteal vein indicating partially occlusive thrombus. No additional sites for D VT identified. IMPRESSION: Partially occlusive DVT of the distal thigh and popliteal region. The patient has documented positive DVT on recent comparison exam of 08/22/17. POS: [facility]
== END 2017-09-13 18:55 | disposition home or self-care (01) ==
LOC: ERS 14:18
DX: I82.432 Acute embolism and thrombosis of left popliteal vein (principal); I82.412 Acute embolism and thrombosis of left femoral vein; G40.909 Epilepsy, unspecified, not intractable, without status epilepticus; E78.5 Hyperlipidemia, unspecified; F79 Unspecified intellectual disabilities; Z79.01 Long term (current) use of anticoagulants; Z79.899 Other long term (current) drug therapy
CPT/HCPCS: 36415; 80053; 85025; 85379; 85610

== ENCOUNTER 2017-10-27 16:33 | Emergency (ER) | payer MEDICARE, OTHER, MEDICAID ==
--- NOTE | 2017-10-27 20:06 | CT ---
CT BRAIN: Date: 10-27-17 Provided Clinical History: Head pain status post injury. FINDINGS: Comparison 07-29-17. The ventricular system appears normal in size and morphology. There is no evidence for intracranial h emorrhage or mass effect. Beam hardening artifact is noted involving the bilateral frontal regions ap pearing similar to the prior examination. The extracranial soft tissues and osseous structures demons trate no acute findings other than left parietal scalp swelling. IMPRESSION: No evidence for intracranial hemorrhage or mass effect. POS: [facility]
== END 2017-10-27 19:30 | disposition home or self-care (01) ==
LOC: ERS 16:33
DX: S00.03XA Contusion of scalp, initial encounter (principal); G40.909 Epilepsy, unspecified, not intractable, without status epilepticus; E78.5 Hyperlipidemia, unspecified; I82.409 Acute embolism and thrombosis of unspecified deep veins of unspecified lower extremity; Z79.01 Long term (current) use of anticoagulants; W22.03XA Walked into furniture, initial encounter
CPT/HCPCS: 70450

== ENCOUNTER 2017-12-03 13:07 | Outpatient (CLI) | payer MEDICARE, OTHER, MEDICAID ==
[2017-12-03] MEDS ORDERED: Sodium Chloride 0.9% 15 ML NEB ONE (14:31)
--- NOTE | 2017-12-03 16:25 | PRG ---
DATE OF SERVICE: 12/03/2017 HISTORY: Mr. Seferino Bryson is a very pleasant 57-year-old gentleman accompanied by his father who presents to the Wound Center for evaluation of an ulceration of the right anterior lower leg. The ulceration apparently has been present for approximately two weeks. The patient's father states that he began treating the ulceration with dressing changes of Aquacel AG. He states that the wound improved in its appearance. He states that later the ulceration worsened in its appearance and he discontinued. Dressing changes of Aquacel AG with an improvement in the appearance of the wound. The patient utilizes compression garments for both right and left lower extremities. PHYSICAL EXAMINATION: VITAL SIGNS: Temperature 98.0, pulse 74, respirations 18, blood pressure 120/ 77. EXTREMITIES: The ulceration of the right anterior lower leg measures approximately 1.3 x 0.8 cm. Necrotic and nonviable tissue present within the wound margins was debrided with an excisional full-thickness debridement with the use of a curet. No purulent drainage is associated with the wound. Erythema of the skin surrounding the wound is present. No maceration of the skin of the periwound is noted. A dorsalis pedis pulse is palpable on the right. No significant edema of the right foot or lower leg is present on exam today. ASSESSMENT AND PLAN: 1. Venous ulceration of right anterior lower leg. Dressing changes of Aquacel AG and bordered gauze are to be performed on a daily basis or alternatively three times per week after cleansing and irrigation. The patient's father will be performing the patient's dressing changes. The patient is to continue to utilize compression garments in conjunction with the preceding dressing changes. The patient's father has been given a prescription for Bactrim DS #20 one p.o. BID x 10 days. 2. Lymphedema tarda. Arrangements will be made for the initiation of in-home lymphedema therapy after the patient has been seen by Cardiology. 3. Klinefelter syndrome with mental retardation. 4. Epilepsy. 5. Hypothyroidism. MTDD
== END 2017-12-03 13:08 | disposition home or self-care (01) ==
LOC: WCC 13:07
PROVIDERS: ATTEND Family Medicine
DX: I87.311 Chronic venous hypertension (idiopathic) with ulcer of right lower extremity (principal); I89.0 Lymphedema, not elsewhere classified; G40.909 Epilepsy, unspecified, not intractable, without status epilepticus; E03.9 Hypothyroidism, unspecified; Q98.4 Klinefelter syndrome, unspecified
CPT/HCPCS: 11042; A4218

== ENCOUNTER 2017-12-24 19:17 | Emergency (ER) | payer MEDICARE, OTHER, MEDICAID | END 2017-12-24 22:32 | disposition home or self-care (01) | LOC: ERS 19:17 | DX: I82.502 Chronic embolism and thrombosis of unspecified deep veins of left lower extremity (principal); G40.909 Epilepsy, unspecified, not intractable, without status epilepticus; E78.5 Hyperlipidemia, unspecified; Z79.899 Other long term (current) drug therapy | CPT/HCPCS: 99283 ==

== ENCOUNTER 2018-03-26 13:35 | Outpatient (CLI) | payer MEDICARE, OTHER, MEDICAID ==
--- NOTE | 2018-03-26 14:31 | ULT ---
VENOUS DOPPLER ULTRASOUND OF THE LEFT LOWER EXTREMITY: Date: 03/26/18 HISTORY: Left leg edema. TECHNIQUE: Rosario scale ultrasound with color flow and spectral Doppler imaging of the deep venous systems of the left lower extremity performed. FINDINGS: There is good flow, compression, and augmentation noted in the left common femoral, femoral, deep fem oral, popliteal, posterior tibial, and greater saphenous veins. IMPRESSION: No evidence of deep venous thrombosis in the left lower extremity. POS: [facility]
--- NOTE | 2018-03-26 14:41 | ULT ---
ULTRASOUND SOFT TISSUE OTHER: HISTORY: Left leg swelling. COMPARISON: None. FINDINGS: There is extensive superficial soft tissue edema infiltration into the subcutaneous fat of the thigh. No drainable collection, although the examination is only down to a depth of 4 cm. IMPRESSION: Extensive subcutaneous soft tissue swelling. No superficial collection, although the exam was only p erformed to a depth of 4 cm. POS: [facility]
== END 2018-03-26 13:36 | disposition home or self-care (01) ==
LOC: ULT 13:35
PROVIDERS: ATTEND Family Medicine
DX: I82.512 Chronic embolism and thrombosis of left femoral vein (principal)
CPT/HCPCS: 76999

== ENCOUNTER 2018-04-06 10:12 | Outpatient (CLI) | payer MEDICARE, OTHER, MEDICAID ==
--- NOTE | 2018-04-06 12:56 | CT ---
CT ABDOMEN AND PELVIS WITH IV CONTRAST: Technique: Multiple axial tomograms were obtained through the abdomen and pelvis with IV enhancement. Oral contrast was administered. This exam was carried through the upper thighs bilaterally. History: Edema. History of mass in upper thigh. Lymphatic blockage due to edema in the left lower ex tremity which was noted on soft tissue ultrasound exam. FINDINGS: Lung bases appear clear. Liver and spleen appear unremarkable. The pancreas shows fatty degeneration. Stomach shows mild mural thickening in the region of the antrum which is nonspecific. Adrenal glands are normal. The kidneys show prominence of the central collecting structures although this finding may be due to parapelvic cysts rather than hydronephrosis. The ureters are normal. Urinary bladder shows bladder wa ll thickening. Significant prostatic hypertrophy. Review of the intestinal tract reveals an abnormally dilated loop of small bowel in the mid small bow el. This focal area of bowel dilatation measures up to 9 cm with in the coronal plane. There is evide nce of a mural soft tissue component measuring up to 4 cm, suspicious for a mural mass although I can not exclude focal stool. The distal ileum appears normal caliber. The appendix is prominent but there is no inflammation. A large amount of stool throughout the entire colon suggests constipation. Aorta is normal caliber. Images through the peroneum and proximal thigh show no evidence of subcutaneous edema. Visualized viri ac arteries and femoral arteries are patent. IMPRESSION: 1. Abnormally dilated loop of mid small bowel with evidence of a mural mass associated with this dila thierno loop of bowel. Further evaluation is recommended. Recommend surgical consultation. Small bowel fo llow through with barium may be of benefit to further evaluate the small bowel. 2. Large amount of stool throughout the colon suggests chronic constipation. 3. Question prominence of the upper collecting structures of both kidney although this may represent bilateral parapelvic cysts. There is evidence of thickening of the urinary bladder wall. POS: [facility]
[2018-04-06] MEDS ORDERED: Iopamidol 370 76% 100 ML VIAL ONE (13:47)
== END 2018-04-06 10:13 | disposition home or self-care (01) ==
LOC: CT 10:12
PROVIDERS: ATTEND Family Medicine
DX: R60.0 Localized edema (principal); K63.89 Other specified diseases of intestine
CPT/HCPCS: 74177

== ENCOUNTER 2018-04-11 20:40 | Emergency (ER) | payer MEDICARE, OTHER, MEDICAID | END 2018-04-11 21:15 | disposition home or self-care (01) | LOC: ERS 20:40 | DX: K64.4 Residual hemorrhoidal skin tags (principal); G40.909 Epilepsy, unspecified, not intractable, without status epilepticus; E78.5 Hyperlipidemia, unspecified; Z86.73 Personal history of transient ischemic attack (TIA), and cerebral infarction without residual deficits; Z79.899 Other long term (current) drug therapy | CPT/HCPCS: 82274; 99283 ==

== ENCOUNTER 2018-06-07 08:55 | Emergency (ER) | payer MEDICARE, OTHER, MEDICAID ==
--- NOTE | 2018-06-07 11:33 | RAD ---
4 VIEWS LEFT KNEE: Date: 06/07/18 INDICATION: Left knee pain. COMPARISON: None. IMPRESSION: There is diffuse osteopenia. There is mild osteoarthrosis of the left knee, predominantly involving t he patellofemoral compartment. No acute fracture or subluxation is evident. POS: [facility]
--- NOTE | 2018-06-07 12:36 | ULT ---
LEFT LOWER EXTREMITY VENOUS DUPLEX EXAM: Date: 06/07/18 HISTORY: Left leg pain and swelling. COMPARISON: 03/26/18. FINDINGS: Real-time color Doppler evaluation of the left lower extremity was performed from groin to calf. This includes evaluation of the common femoral, superficial and profunda femoral, saphenous, popliteal, a nd posterior tibial veins. This shows incomplete compressibility of the popliteal vein, but flow is d emonstrated. The remainder of the deep venous system is normal. IMPRESSION: Questionable minimal nonocclusive thrombus of the popliteal vein. Vein does not completely compress, although at times it is difficult to completely compress the popliteal vein. The remainder of the marcellus p venous system is normal. POS: [facility]
== END 2018-06-07 11:15 | disposition home or self-care (01) ==
LOC: ERS 08:55
DX: M25.562 Pain in left knee (principal); G40.909 Epilepsy, unspecified, not intractable, without status epilepticus; E78.5 Hyperlipidemia, unspecified; Z86.718 Personal history of other venous thrombosis and embolism; Z79.899 Other long term (current) drug therapy; Z79.01 Long term (current) use of anticoagulants; W19.XXXA Unspecified fall, initial encounter

== ENCOUNTER 2018-06-25 10:47 | Outpatient (CLI) | payer MEDICARE, OTHER, MEDICAID ==
--- NOTE | 2018-06-25 12:13 | PRG ---
DATE OF PROCEDURE: 06/25/2018 HISTORY: Mr. Seferino Bryson is a very pleasant 57-year-old gentleman accompanied by his father and a caregiver who presents to the Wound Center for evaluation of lymphedema of the right and left lower e xtremities. The patient was seen in the Wound Center in November of this year for an ulceration of t he right anterior lower leg. This wound has healed completely and remains healed. The patient has n o complaints today. He denies any fever or chills. PHYSICAL EXAMINATION: VITAL SIGNS: Temperature 98.1, pulse 79, blood pressure 114/69. EXTREMITIES: The ulceration of the right anterior lower leg noted at the time of the patient's visit in 11/2017 has healed completely and remains healed. Discoloration of the skin of the right and lef t lower legs is present secondary to hemosiderin deposition. A posterior tibial pulse is palpable on the left. Lymphedema of the right and left lower extremities is present on exam today, but has decr eased since the patient's last visit. Circumferences of the right lower extremity at the ankle, calf , knee and thigh on the right are 24 cm, 30.5 cm, 34 cm, and 50.5 cm. Circumferences of the left low er extremity at the ankle, calf, knee and thigh are 28 cm, 32 cm, 39 cm, and 55 cm. ASSESSMENT AND PLAN: 1. Lymphedema tarda. The patient has been utilizing his lymphedema pump on the left consistently an d has had an improvement in the lymphedema of his left lower extremity. Circumferences of the left l ower extremity at the time of the patient's last visit at the ankle, calf, knee and thigh were 25 cm, 33.5 cm, 43 cm, and 57 cm. The patient's father states that he will contact the clinic in order to schedule the patient's next appointment if necessary. 2. Klinefelter syndrome with mental retardation. 3. Epilepsy. 4. Hypothyroidism.
== END 2018-06-25 10:48 | disposition home or self-care (01) ==
LOC: WCC 10:47
PROVIDERS: ATTEND Family Medicine
DX: I89.0 Lymphedema, not elsewhere classified (principal); Q98.4 Klinefelter syndrome, unspecified; F79 Unspecified intellectual disabilities; G40.909 Epilepsy, unspecified, not intractable, without status epilepticus; E03.9 Hypothyroidism, unspecified
CPT/HCPCS: 97602

== ENCOUNTER 2018-12-10 13:32 | Outpatient (CLI) | payer MEDICARE, OTHER, MEDICAID ==
--- NOTE | 2018-12-10 15:00 | PRG ---
DATE OF SERVICE: 12/10/2018 SUBJECTIVE: Mr. Seferino Bryson is a very pleasant 58-year-old gentleman, accompanied by his father, who presents to the wound center for evaluation of an ulceration of the dorsum of the left second toe. The patient's father has been dressing the wound with Aquacel Ag followed by a Band-Aid. The patient has no complaints today. He denies any fever or chills. OBJECTIVE: VITAL SIGNS: Temperature 97.6, pulse 84, blood pressure 128/69. EXTREMITIES: The full-thickness ulceration of the dorsum of the left second toe measures approximately 1.3 x 1.3 x 0.1cm. Granulation tissue is visible within the wound margins. Necrotic and nonviable tissue present within the wound margins was debrided with an excisional full-thickness debridement with the use of a curette and scissors. Moderate serous drainage is associated with the wound. No cellulitis of the left second toe is appreciated. No maceration of the skin of the periwound is noted. No significant edema of the left second toe is appreciated on today's exam. ASSESSMENT AND PLAN: 1. Ulceration of dorsum of left second toe as described above. Dressing changes of Aquacel Ag, followed by gauze secured with tape will be initiated today. The dressing changes are to be performed every other day after cleansing and irrigation. The patient's father states that he will continue to perform the patient's dressing changes. Arrangements will be made for the home delivery of dressing supplies. I will see Mr. Bryson again in 2 weeks. The patient has been given a prescription for Bactrim DS #21 p.o. b.i.d. x10 days. 2. Lymphedema tarda. The patient is utilizing a pneumatic pump for in-home lymphedema therapy. 3. Klinefelter syndrome with mental retardation. 4. Epilepsy. 5. Hypothyroidism. Job ID: [id number] [facility]
[2018-12-10] MEDS ORDERED: Lidocaine 2% 11 ML SYR ONE (19:30)
[2018-12-10] MEDS ORDERED: Sodium Chloride 0.9% 15 ML NEB ONE (19:30)
== END 2018-12-10 13:33 | disposition home or self-care (01) ==
LOC: WCC 13:32
PROVIDERS: ATTEND Family Medicine
DX: L97.529 Non-pressure chronic ulcer of other part of left foot with unspecified severity (principal); I89.0 Lymphedema, not elsewhere classified; G40.909 Epilepsy, unspecified, not intractable, without status epilepticus; E03.9 Hypothyroidism, unspecified; F79 Unspecified intellectual disabilities; Q98.4 Klinefelter syndrome, unspecified
CPT/HCPCS: 11042; A4218

== ENCOUNTER 2019-01-07 15:44 | Outpatient (CLI) | payer MEDICARE, OTHER, MEDICAID ==
--- NOTE | 2019-01-07 10:20 | PRG ---
DATE OF SERVICE: 01/07/2019 HISTORY: Mr. Seferino Bryson is a very pleasant 58-year-old gentleman, accompanied by his father, who presents to the Wound Center for evaluation of an ulceration of the dorsum of the left second toe. The patient's father has been dressing the wound with Silvercel followed by gauze secured with tape. The patient has no complaints today. He denies any fever or chills. PHYSICAL EXAMINATION: VITAL SIGNS: Temperature 98.0, pulse 76, and blood pressure 117/58. EXTREMITIES: The full-thickness ulceration of the dorsum of the left second toe measures approximately 1.0 x 0.9 x 0.1 cm. Granulation tissue is visible within the wound margins. Necrotic and nonviable tissue present within the wound margins was debrided with an excisional full-thickness debridement. Moderate serous drainage is associated with the wound. No cellulitis of the left second toe is appreciated. No maceration of the skin of the periwound is noted. A dorsalis pedis pulse is easily palpable on the left. No significant edema of the left second toe is appreciated on today's exam. ASSESSMENT AND PLAN: 1. Ulceration of dorsum of left second toe as described above. Dressing changes of Aquacel Ag followed by gauze secured with tape will be continued every other day after cleansing and irrigation. The patient's father states that he will continue to perform the patient's dressing changes. Arrangements were previously made for the home delivery of dressing supplies. The wound is healing without complications or any signs of infection and Mr. Bryson will be discharged from clinic today with followup on a p.r.n. basis. The patient's father understands and is in agreement with the preceding treatment plan. 2. Lymphedema tarda. The patient is utilizing a pneumatic pump for in-home lymphedema therapy. 3. Klinefelter syndrome with mental retardation. 4. Epilepsy. 5. Hypothyroidism. Job ID: [id number]
[2019-01-07] MEDS ORDERED: Sodium Chloride 0.9% 15 ML NEB ONE (18:00)
== END 2019-01-07 15:45 | disposition home or self-care (01) ==
LOC: WCC 15:44
PROVIDERS: ATTEND Family Medicine
DX: L97.529 Non-pressure chronic ulcer of other part of left foot with unspecified severity (principal); I89.0 Lymphedema, not elsewhere classified; F79 Unspecified intellectual disabilities; G40.909 Epilepsy, unspecified, not intractable, without status epilepticus; E03.9 Hypothyroidism, unspecified; Q98.4 Klinefelter syndrome, unspecified
CPT/HCPCS: A4218

== ENCOUNTER 2019-02-24 12:53 | Outpatient (CLI) | payer MEDICARE, OTHER, MEDICAID ==
[~2019-02-24 12:53] MED LIST: Sodium Chloride 0.9% 15 ML NEB ONE
--- NOTE | 2019-02-24 14:20 | PRG ---
DATE OF SERVICE: 02/24/2019 HISTORY: Mr. Seferino Bryson is a very pleasant 58-year-old gentleman, accompanied by his father, who presents to the Wound Center for evaluation of an ulceration of the dorsum of the left second toe. Since the patient's last visit, Mr. Bryson has been receiving dressing changes of Silvercel followed by gauze secured with tape with the assistance of his father. Mr. Bryson has no complaints today. He denies any fever or chills. PHYSICAL EXAMINATION: VITAL SIGNS: Temperature 98.3, pulse 75, respirations are 18, and blood pressure 125/70. EXTREMITIES: An ulceration over the dorsum of the left second toe is present and measures approximately 1.3 x 1.0 cm. Granulation tissue is visible within the wound margins. Necrotic and nonviable tissue present within the wound margins was debrided with an excisional full-thickness debridement. No purulent drainage is associated with the wound. No cellulitis of the left second toe is present. No maceration of the skin of the periwound is noted. No significant edema of the left second toe was present on today's exam. ASSESSMENT AND PLAN: 1. Ulceration of dorsum of left second toe as described above. Dressing changes of Medihoney will be initiated today. These dressing changes are to be performed on a daily basis or alternatively every other day after cleansing and irrigation. The patient's father states that he will continue to perform the patient's dressing changes. Gauze secured with tape will be utilized as a secondary dressing. I will see Mr. Bryson again in 2 weeks. 2. Lymphedema tarda. The patient is utilizing a pneumatic pump for in-home lymphedema therapy. 3. Klinefelter syndrome with mental retardation. 4. Epilepsy. 5. Hypothyroidism. Job ID: [id number]
== END 2019-02-24 12:54 | disposition home or self-care (01) ==
LOC: WCC 12:53
PROVIDERS: ATTEND Family Medicine
DX: L97.529 Non-pressure chronic ulcer of other part of left foot with unspecified severity (principal); I89.0 Lymphedema, not elsewhere classified; G40.909 Epilepsy, unspecified, not intractable, without status epilepticus; Q98.4 Klinefelter syndrome, unspecified; F79 Unspecified intellectual disabilities; E03.9 Hypothyroidism, unspecified
CPT/HCPCS: A4218

== ENCOUNTER 2019-03-10 14:16 | Outpatient (CLI) | payer MEDICARE, OTHER, MEDICAID ==
[2019-03-10] MEDS ORDERED: Sodium Chloride 0.9% 15 ML NEB ONE (15:00)
--- NOTE | 2019-03-10 15:17 | PRG ---
DATE OF SERVICE: 03/10/2019 HISTORY: Mr. Seferino Bryson is a very pleasant 58-year-old gentleman, accompanied by his father, who presents to the Wound Center for evaluation of an ulceration of the dorsum of the left second toe. Since the patient's last visit, Mr. Bryson has been receiving dressing changes of Medihoney followed by gauze secured with tape with the assistance of his father. The patient has no complaints today. He denies any fever or chills. PHYSICAL EXAMINATION: VITAL SIGNS: Temperature 97.7, pulse 84, respirations 20, and blood pressure 119/65. EXTREMITIES: An ulceration over the dorsum of the left second toe is present and measures approximately 0.9 x 0.8 cm. The dimensions of the wound at the time of the patient's visit on 02/24/2019 were approximately 1.3 x 1.0 cm. Granulation tissue is visible within the wound margins. Necrotic and nonviable tissue present within the wound margins was debrided with an excisional full-thickness debridement. No purulent drainage is associated with the wound. No cellulitis of the left second toe is present. No maceration of the skin of the periwound is noted. No significant edema of the left second toe is present on exam today. ASSESSMENT AND PLAN: 1. Ulceration of dorsum of left second toe as described above. Dressing changes of Medihoney will be continued on a daily basis or alternatively every other day after cleansing and irrigation. The patient's father states that he will continue to perform the patient's dressing changes. Gauze secured with tape will be continued as a secondary dressing. I will see Mr. Bryson again in 2 weeks. 2. Lymphedema tarda. The patient is utilizing a pneumatic pump for in-home lymphedema therapy. 3. Klinefelter syndrome with mental retardation. 4. Epilepsy. 5. Hypothyroidism. Job ID: [id number]
== END 2019-03-10 14:17 | disposition home or self-care (01) ==
LOC: WCC 14:16
PROVIDERS: ATTEND Family Medicine
DX: L97.529 Non-pressure chronic ulcer of other part of left foot with unspecified severity (principal); I89.0 Lymphedema, not elsewhere classified; Q98.4 Klinefelter syndrome, unspecified; G40.909 Epilepsy, unspecified, not intractable, without status epilepticus; E03.9 Hypothyroidism, unspecified
CPT/HCPCS: A4218

== ENCOUNTER 2019-03-22 15:40 | Outpatient (CLI) | payer MEDICARE, OTHER, MEDICAID ==
--- NOTE | 2019-03-22 22:08 | PRG ---
DATE OF SERVICE: 03/22/2019 SUBJECTIVE: Mr. Seferino Bryson is a very pleasant 58-year-old gentleman, accompanied by his father who presents to the Wound Center for evaluation of an ulceration of the dorsum of the left 2nd toe. Since the patient's last visit, Mr. Bryson has been receiving dressing changes of Medihoney with the assistance of his father. The patient also presents to the Wound Center with a new ulceration over the dorsum of the right 3rd toe. The patient's father states that he has treated the ulceration of the dorsum of the right 3rd toe with a dressing containing silver and more recently Medihoney. The patient has no other complaints today. He denies any fever or chills. OBJECTIVE: VITAL SIGNS: Temperature 98.2, pulse 77, respirations 20, blood pressure 121/81. EXTREMITIES: An ulceration over the dorsum of the left 2nd toe is present and measures approximately 0.7 x 0.8 cm. The dimensions of the wound at the time of the patient's visit on 03/10/2019 were approximately 0.9 x 0.8 cm. Granulation tissue is present within the wound margins. Necrotic and nonviable tissue present within the wound margins was debrided with an excisional full-thickness debridement. No purulent drainage is associated with the wound. No cellulitis of the left second toe is present. No maceration of the skin of the periwound is noted. No significant edema of the left 2nd toe is present on exam today. The ulceration over the dorsum of the right 3rd toe measures approximately 1.1 x 1.1 cm. No purulent drainage is associated with the wound. Erythema of the right 3rd toe is present. No maceration of the skin of the periwound is noted. Edema of the right 3rd toe is also present on exam today. ASSESSMENT AND PLAN: 1. Ulceration of dorsum of left 2nd toe as described above. Dressing changes of Xeroform gauze will be initiated today. These dressing changes are to be performed on a daily basis or alternatively every other day or 3 times per week after cleansing and irrigation. The patient's father states that he will continue to perform the patient's dressing changes. Gauze secured with Coban will be continued as secondary dressings. I will see Mr. Bryson again in 2 weeks. 2. Ulceration of dorsum of right 3rd toe associated with cellulitis. The patient's father has been given a prescription for Bactrim DS #21 p.o. b.i.d. x10 days. For the ulceration, the patient is to receive dressing changes of Xeroform secured with gauze and Coban on a daily basis or alternatively every other day or 3 times per week after cleansing and irrigation. As stated above, the patient's father will be performing the patient's dressing changes. 3. Lymphedema tarda. The patient is utilizing a pneumatic pump for in-home lymphedema therapy. 4. Klinefelter syndrome with mental retardation. 5. Epilepsy. 6. Hypothyroidism. Job ID: [id number]
== END 2019-03-22 15:41 | disposition home or self-care (01) ==
LOC: WCC 15:40
PROVIDERS: ATTEND Family Medicine
DX: L97.519 Non-pressure chronic ulcer of other part of right foot with unspecified severity (principal); L97.529 Non-pressure chronic ulcer of other part of left foot with unspecified severity; L03.031 Cellulitis of right toe; I89.0 Lymphedema, not elsewhere classified; E03.9 Hypothyroidism, unspecified; G40.909 Epilepsy, unspecified, not intractable, without status epilepticus; Q98.4 Klinefelter syndrome, unspecified; F79 Unspecified intellectual disabilities
CPT/HCPCS: A4218

== ENCOUNTER 2019-04-05 14:17 | Outpatient (CLI) | payer MEDICARE, OTHER, MEDICAID ==
--- NOTE | 2019-04-05 16:31 | PRG ---
DATE OF SERVICE: 04/05/2019 HISTORY: Mr. Seferino Bryson is a very pleasant 58-year-old gentleman, accompanied by his father, who presents to the [facility] for evaluation of an ulceration of the dorsum of the left second toe. The patient also has an ulceration over the dorsum of the right third toe. At the time of the patient's last visit, the patient was placed on dressing changes of Xeroform for both wounds. The patient's father states that both wounds worsened in their appearance with the use of Xeroform. The patient's father resumed performing dressing changes of Aquacel Ag for both wounds. The patient has no other complaints today. He denies any fever or chills. PHYSICAL EXAMINATION: VITAL SIGNS: Temperature 98.2, pulse 83, respirations 21, blood pressure 132/82. EXTREMITIES: An ulceration over the dorsum of the left second toe is present, which measures approximately 0.3 x 0.4 cm. An ulceration over the dorsum of the right third toe is present, which measures approximately 1.1 x 0.7 cm. The dimensions of these wounds at the time of the patient's last visit were approximately 0.7 x 0.8 cm and 1.1 x 1.1 cm respectively. No purulent drainage is associated with either wound. No erythema of the skin surrounding either wound is present. No maceration of the skin of the periwound of either wound is noted. No significant edema of the right or left foot is present on exam today. ASSESSMENT AND PLAN: 1. Ulceration of dorsum of left second toe and of right third toe as described above. Dressing changes of Aquacel Ag will be continued at the present frequency after cleansing and irrigation with the assistance of the patient's father. The patient's father states that he will contact the Wound Center in order to schedule the patient's next visit if necessary. 2. Lymphedema tarda. The patient is utilizing a pneumatic pump for in-home lymphedema therapy. 3. Klinefelter syndrome with mental retardation. 4. Epilepsy. 5. Hypothyroidism. Job ID: [id number]
[2019-04-05] MEDS ORDERED: Sodium Chloride 0.9% 15 ML NEB ONE (18:00)
== END 2019-04-05 14:18 | disposition home or self-care (01) ==
LOC: WCC 14:17
PROVIDERS: ATTEND Family Medicine
DX: L97.529 Non-pressure chronic ulcer of other part of left foot with unspecified severity (principal); I89.0 Lymphedema, not elsewhere classified; Q98.4 Klinefelter syndrome, unspecified; G40.909 Epilepsy, unspecified, not intractable, without status epilepticus; E03.9 Hypothyroidism, unspecified
CPT/HCPCS: A4218

== ENCOUNTER 2019-04-22 13:40 | Outpatient (CLI) | payer MEDICARE, OTHER, MEDICAID ==
--- NOTE | 2019-04-22 15:35 | PRG ---
DATE OF SERVICE: 04/22/2019 HISTORY: Mr. Seferino Bryson is a very pleasant 58-year-old gentleman, accompanied by his father, who presents to the Wound Center for evaluation of an ulceration of the dorsum of the left second toe. The patient also has an ulceration over the dorsum of the right third toe. The patient's father reports the presence of a new ulceration over the right lateral third toe. The patient's father has been performing dressing changes of Aquacel Ag for the right and left foot wounds. The patient's father noted erythema of the right foot associated with the new ulceration and administered Bactrim DS to Mr. Bryson. The patient's father states that he had Bactrim DS on hand. PHYSICAL EXAMINATION: VITAL SIGNS: Temperature 98.6, pulse 83, respirations 17, and blood pressure 108/70. EXTREMITIES: The ulceration over the dorsum of the left second toe has healed completely. The ulceration over the dorsum of the right third toe noted at the time of the patient's last visit has also healed completely. The new ulceration measures approximately 1.3 x 1.0 cm. No purulent drainage is associated with the wound. Erythema of the dorsum of the right foot is present on exam today. No maceration of the skin of the periwound is noted. Edema of the right foot is also noted on today's exam. A dorsalis pedis pulse is easily palpable on the right. ASSESSMENT AND PLAN: 1. New ulceration of right lateral third toe as described above. As stated above, the ulcerations of the dorsum of the left second toe and of the right third toe noted at the time of the patient's last visit have both healed completely. For the new ulceration, dressing changes of Aquacel Ag and gauze are to be performed on a daily basis after cleansing and irrigation. The patient's father states he will continue to assist the patient with his dressing changes. The patient has also been given a prescription for Bactrim DS #10 one p.o. b.i.d. x5 days. The patient's father states that he has 5 days of Bactrim on hand. The patient has been instructed to keep his right lower extremity elevated as much as possible and to discontinue the use of his shoe unless absolutely necessary. I will see Mr. Bryson again in 1 week. 2. Lymphedema tarda. The patient has been instructed to discontinue the use of his pneumatic pump while he has cellulitis of the right foot. 3. Klinefelter syndrome with mental retardation. 4. Epilepsy. 5. Hypothyroidism. Job ID: [id number]
== END 2019-04-22 13:41 | disposition home or self-care (01) ==
LOC: WCC 13:40
PROVIDERS: ATTEND Family Medicine
DX: L97.519 Non-pressure chronic ulcer of other part of right foot with unspecified severity (principal); I89.0 Lymphedema, not elsewhere classified; E03.9 Hypothyroidism, unspecified; G40.909 Epilepsy, unspecified, not intractable, without status epilepticus; Q98.4 Klinefelter syndrome, unspecified; F79 Unspecified intellectual disabilities

== ENCOUNTER 2019-04-28 09:53 | Outpatient (CLI) | payer MEDICARE, OTHER, MEDICAID ==
--- NOTE | 2019-04-28 16:03 | PRG ---
DATE OF SERVICE: 04/28/2019 HISTORY: Mr. Seferino Bryson is a very pleasant 58-year-old gentleman, accompanied by his father, who presents to the wound center for evaluation of an ulceration over the right fourth toe. The patient also has an ulceration over the right lateral third toe. For these wounds, the patient's father has been performing dressing changes of Silvercel. At the time of the patient's last visit, Mr. Bryson was given a prescription for Bactrim DS, which he has been taking as prescribed. The patient's father states that the erythema of the right foot has resolved. PHYSICAL EXAMINATION: VITAL SIGNS: Temperature 98.5, pulse 85, respirations 19, and blood pressure 114/58. EXTREMITIES: The ulceration over the right lateral third toe measures approximately 1.0 x 1.0 cm. The dimensions of the wound at the time of the patient's last visit were approximately 1.3 x 1.0 cm. Tendon is visible within the wound margins. Granulation tissue is also visible within the wound margins. No purulent drainage is associated with the wound. No erythema of the skin surrounding the wound is present. No maceration of the skin of the periwound is noted. No significant edema of the right foot is appreciated on exam today. The ulceration over the right fourth toe measures approximately 0.2 x 0.2 cm. Granulation tissue is present within the wound margins. No purulent drainage is associated with the wound. No erythema of the skin surrounding the wound is present. No maceration of the skin of the periwound is noted. ASSESSMENT AND PLAN: 1. Ulceration of right lateral third toe and of the right fourth toe as described above. For both ulcerations, dressing changes of Silvercel and gauze secured with tape are to be performed on a daily basis after cleansing and irrigation. The patient's father states that he will continue to assist the patient with his dressing changes. The patient is to continue Bactrim DS as previously prescribed. The patient has resumed utilizing his pneumatic pump on the right. The patient again has been reminded to discontinue the use of his shoe unless absolutely necessary. The patient has resumed utilizing his pneumatic pump on the right. I will see Mr. Bryson again in 1 week. 2. Lymphedema tarda. As stated above, the patient has resumed utilizing his pneumatic pump. 3. Klinefelter syndrome with mental retardation. 4. Epilepsy. 5. Hypothyroidism. Job ID: [id number]
== END 2019-04-28 09:54 | disposition home or self-care (01) ==
LOC: WCC 09:53
PROVIDERS: ATTEND Family Medicine
DX: L97.519 Non-pressure chronic ulcer of other part of right foot with unspecified severity (principal); I89.0 Lymphedema, not elsewhere classified; G40.909 Epilepsy, unspecified, not intractable, without status epilepticus; Q98.4 Klinefelter syndrome, unspecified; F79 Unspecified intellectual disabilities; E03.9 Hypothyroidism, unspecified
CPT/HCPCS: 97602; A4218

== ENCOUNTER 2019-05-05 14:16 | Outpatient (CLI) | payer MEDICARE, OTHER, MEDICAID ==
--- NOTE | 2019-05-05 14:18 | PRG ---
DATE OF SERVICE: 05/05/2019 HISTORY: Mr. Seferino Bryson is a very pleasant 58-year-old gentleman, accompanied by his father who presents to the Wound Center for evaluation of an ulceration over the right medial fourth toe. The patient also has an ulceration over the right lateral third toe. For these wounds, the patient has been receiving dressing changes of Silvercel. The patient's father continues to assist the patient with dressing changes. The patient has no complaints today. He denies any fever or chills. OBJECTIVE: VITAL SIGNS: Temperature 97.8, pulse 71, respirations 18, and blood pressure 120/68. EXTREMITIES: The ulceration over the right lateral third toe measures approximately 0.9 x 0.8 cm. The dimensions of the wound at the time of the patient's last visit were approximately 1.0 x 1.0 cm. Tendon is exposed within an area, which measures approximately 0.6 x 0.5 cm. Granulation tissue is also visible within the wound margins. No purulent drainage is associated with the wound. No erythema of the skin surrounding the wound is present. No maceration of the skin of the periwound is noted. No significant edema of the right foot is appreciated on exam today. The ulceration over the right medial fourth toe measures approximately 0.3 x 0.3 cm. Granulation tissue is present within the wound margins. No purulent drainage is associated with the wound. No erythema of the skin surrounding the wound is present. No maceration of the skin of the periwound is noted. ASSESSMENT AND PLAN: 1. Ulceration of right lateral third toe and of the right medial fourth toe as described above. For both ulcerations, dressing changes of Silvercel and gauze secured with tape will be continued on a daily basis after cleansing and irrigation. The patient's father will continue to assist the patient with his dressing changes. I will see Mr. Bryson again in 1 week. 2. 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 4. Epilepsy. 5. Hypothyroidism. Job ID: [id number]
[2019-05-05] MEDS ORDERED: Sodium Chloride 0.9% 15 ML NEB ONE (18:00)
== END 2019-05-05 14:17 | disposition home or self-care (01) ==
LOC: WCC 14:16
PROVIDERS: ATTEND Family Medicine
DX: L97.519 Non-pressure chronic ulcer of other part of right foot with unspecified severity (principal); I89.0 Lymphedema, not elsewhere classified; E03.9 Hypothyroidism, unspecified; G40.909 Epilepsy, unspecified, not intractable, without status epilepticus; F79 Unspecified intellectual disabilities
CPT/HCPCS: 97602; A4218

== ENCOUNTER 2019-05-17 15:30 | Outpatient (CLI) | payer MEDICARE, OTHER, MEDICAID ==
--- NOTE | 2019-05-17 17:27 | PRG ---
DATE OF SERVICE: 05/17/2019 HISTORY: Mr. Seferino Bryson is a very pleasant 58-year-old gentleman, accompanied by his father, who presents to the Wound Center for evaluation of an ulceration over the right lateral third toe. The patient also has an ulceration over the right medial fourth toe. MatriStem sheet was applied to the wound bed of the ulceration of the right lateral third toe at the time of the patient's visit on 05/12/2019. For both wounds, the patient is presently receiving dressing changes of Silvercel. The patient's father continues to assist the patient with dressing changes. The patient has no complaints today. He denies any fever or chills. OBJECTIVE: VITAL SIGNS: Temperature 98.0, pulse 77, respirations 16, and blood pressure 134/88. EXTREMITIES: The ulceration over the right lateral third toe measures approximately 1.2 x 1.0 cm. The dimensions of the wound at the time of the patient's last visit were approximately 1.0 x 1.0 cm. Left tendon is exposed within the wound margins than at the time of the patient's last visit. Granulation tissue is present within the wound margins. No purulent drainage is associated with the wound. No erythema of the skin surrounding the wound is present. No maceration of the skin of the periwound is noted. No significant edema of the right foot is present on exam today. The ulceration over the right medial fourth toe measures approximately 0.3 x 0.2 cm. No purulent drainage is associated with the wound. No maceration of the skin of the periwound is noted. No significant edema of the right foot is appreciated on exam today. ASSESSMENT AND PLAN: 1. Ulcerations of right lateral third toe and of the right medial fourth toe as described above. Dressing changes of Silvercel will be continued on a daily basis after cleansing and irrigation. The patient's father will continue to assist the patient with his dressing changes. I will see Mr. Bryson again in 2 weeks. Plain films of the right foot obtained on 05/12/2019, showed no evidence of osteomyelitis. The patient is to continue Augmentin 875/125, #20, one p.o. b.i.d. x10 days as previously prescribed. The patient's father has been asked to discontinue the patient's compression garment over the right foot and lower leg. If the ulceration worsens in its appearance or the dimensions fail to decrease in a timely manner, I have explained to the patient's father, consideration will need to be given to MRI of the right foot to look for findings suggestive of osteomyelitis. 2. 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 4. Epilepsy. 5. Hypothyroidism. Job ID: [id number]
== END 2019-05-17 15:31 | disposition home or self-care (01) ==
LOC: WCC 15:30
PROVIDERS: ATTEND Family Medicine
DX: L97.519 Non-pressure chronic ulcer of other part of right foot with unspecified severity (principal); I89.0 Lymphedema, not elsewhere classified; Q98.4 Klinefelter syndrome, unspecified; F79 Unspecified intellectual disabilities; E03.9 Hypothyroidism, unspecified; G40.909 Epilepsy, unspecified, not intractable, without status epilepticus
CPT/HCPCS: 97602; A4218

== ENCOUNTER 2019-05-20 13:16 | Outpatient (CLI) | payer MEDICARE, OTHER, MEDICAID ==
--- NOTE | 2019-05-20 14:17 | PRG ---
DATE OF SERVICE: 05/20/2019 SUBJECTIVE: Mr. Seferino Bryson is a very pleasant 58-year-old gentleman, accompanied by his father, who presents to the wound center for evaluation of an ulceration over the right lateral third toe. The patient also has an ulceration over the right medial fourth toe. MatriStem sheet was applied to the wound bed of the ulceration of the right lateral third toe at the time of the patient's visit on 05/12/2019. For both wounds, the patient is presently receiving dressing changes of Silvercel. The patient's father continues to assist the patient with dressing changes. The patient presents to clinic earlier than his scheduled appointment because of hypergranulation within the margins of the wound over the right lateral third toe. The patient has no complaints today. He denies any fever or chills. OBJECTIVE: VITAL SIGNS: Temperature 98.2, pulse 72, respirations 16, and blood pressure 132/67. EXTREMITIES: The ulceration over the right lateral third toe measures approximately 1.1 x 1.2 cm. The dimensions of the wound at the time of the patient's last visit were approximately 1.2 x 1.0 cm. No tendon is visible within the wound margins on today's exam. Hypergranulation is present within the wound margins. No purulent drainage is associated with the wound. No erythema of the skin surrounding the wound is present. No maceration of the skin of the periwound is noted. No significant edema of the right foot is present on exam today. The ulceration over the right medial fourth toe has healed completely. ASSESSMENT AND PLAN: 1. Ulcerations of right lateral third toe and of the right medial fourth toe as described above. As stated above, the ulceration over the right medial fourth toe has healed completely. The patient's father has been reassured in regard to the hypergranulation present within the wound margins of the ulceration of the right lateral third toe. Dressing changes of Silvercel will be continued on a daily basis after cleansing and irrigation. The patient's father will continue to assist the patient with his dressing changes. I will see Mr. Bryson again in 2 weeks. 2. 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 4. Epilepsy. 5. Hypothyroidism. Job ID: [id number]
== END 2019-05-20 13:17 | disposition home or self-care (01) ==
LOC: WCC 13:16
PROVIDERS: ATTEND Family Medicine
DX: L97.519 Non-pressure chronic ulcer of other part of right foot with unspecified severity (principal); I89.0 Lymphedema, not elsewhere classified; Q98.4 Klinefelter syndrome, unspecified; F79 Unspecified intellectual disabilities; G40.909 Epilepsy, unspecified, not intractable, without status epilepticus; E03.9 Hypothyroidism, unspecified
CPT/HCPCS: 97602

== ENCOUNTER 2019-06-09 16:30 | Outpatient (CLI) | payer MEDICARE, OTHER, MEDICAID ==
--- NOTE | 2019-06-09 17:08 | PRG ---
DATE OF SERVICE: 06/09/2019 HISTORY: Mr. Seferino Bryson is a very pleasant 58-year-old gentleman, accompanied by his father, who presents to the wound center for evaluation of an ulceration over the right lateral third toe. MatriStem sheet was applied to the wound bed of the ulceration of the right lateral third toe at the time of the patient's visit on 05/12/2019. The patient subsequently received dressing changes of Silvercel for the right third toe ulceration. Since the patient's visit on 05/31/2019, the patient has been receiving dressing changes of Multidex powder for the right lateral third toe ulceration. The patient is receiving these dressing changes on a daily basis after cleansing and irrigation with the assistance of his father. PHYSICAL EXAMINATION: VITAL SIGNS: Temperature 98.2, pulse 77, respirations 19, blood pressure 111/70. EXTREMITIES: An ulceration over the right lateral third toe is present and measures approximately 1.3 x 1.3 cm. The dimensions of the wound at the time of the patient's last visit were approximately 1.4 x 1.3 cm. No tendon is visible within the wound margins on today's exam. Hypergranulation is present within the wound margins. A sample of this tissue was excised with the use of scissors and sent for aerobic and anaerobic cultures. No purulent drainage is associated with the wound. No erythema of the skin surrounding the wound is present. No maceration of the skin of the periwound is noted. No significant edema of the right foot is present on exam today. ASSESSMENT AND PLAN: 1. Ulceration of right lateral third toe as described above. Dressing changes of Multidex powder and gauze will be continued on a daily basis after cleansing and irrigation. The patient's father will continue to assist the patient with his dressing changes. I will see Mr. Bryson again in 1 week. 2. 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 4. Epilepsy. 5. Hypothyroidism. Job ID: [id number]
== END 2019-06-09 16:31 | disposition home or self-care (01) ==
LOC: WCC 16:30
PROVIDERS: ATTEND Family Medicine
DX: L97.519 Non-pressure chronic ulcer of other part of right foot with unspecified severity (principal); I89.0 Lymphedema, not elsewhere classified; Q98.4 Klinefelter syndrome, unspecified; F79 Unspecified intellectual disabilities; G40.909 Epilepsy, unspecified, not intractable, without status epilepticus; E03.9 Hypothyroidism, unspecified
CPT/HCPCS: 87070; 87077; 87186; 87205; 97602; A4218

== ENCOUNTER 2019-06-14 13:03 | Outpatient (CLI) | payer MEDICARE, OTHER, MEDICAID ==
--- NOTE | 2019-06-14 16:15 | PRG ---
DATE OF SERVICE: 06/14/2019 SUBJECTIVE: Mr. Seferino Bryson is a very pleasant 58-year-old gentleman, accompanied by his father, who presents to the Wound Center for evaluation of an ulceration over the right lateral third toe. MatriStem sheet was applied to the wound bed of the ulceration of the right lateral third toe at the time of the patient's visit on 05/12/2019. The patient subsequently received dressing changes of Silvercel for the right third toe ulceration. Since the patient's visit on 05/31/2019, the patient has been receiving dressing changes of Multidex powder for the right lateral third toe ulceration. The patient is receiving these dressing changes on a daily basis after cleansing and irrigation with the assistance of his father. PHYSICAL EXAMINATION: VITAL SIGNS: Temperature 98.2, pulse 76, respirations 16, and blood pressure 107/69. EXTREMITIES: An ulceration over the right lateral third toe is present and measures approximately 1.6 x 1.5 cm. The dimensions of the wound at the time of the patient's last visit were approximately 1.3 x 1.3 cm. No tendon is visible within the wound margins on exam today. Hypergranulation present within the wound margins was treated with the application of silver nitrate. No purulent drainage is associated with the wound. No maceration of the skin of the periwound is noted. Edema and erythema of the right third toe are noted on exam today. ASSESSMENT AND PLAN: 1. Ulceration of right lateral third toe as described above. Dressing changes of Multidex powder and gauze will be continued on a daily basis after cleansing and irrigation. The patient's father will continue to assist the patient with his dressing changes. Arrangements will be made for MRI of the right foot with and without contrast to look for findings suggestive of osteomyelitis. The patient and his father have been told that MRI of the right foot with and without contrast will be obtained because of the chronic erythema and edema of the right third toe. In addition, the dimensions of the ulceration have increased since the patient's last visit. The patient's father understands and is in agreement with the preceding treatment plan. 2. 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 4. Epilepsy. 5. Hypothyroidism. Job ID: [id number]
== END 2019-06-14 13:04 | disposition home or self-care (01) ==
LOC: WCC 13:03
PROVIDERS: ATTEND Family Medicine
DX: L97.519 Non-pressure chronic ulcer of other part of right foot with unspecified severity (principal); I89.0 Lymphedema, not elsewhere classified; Q98.4 Klinefelter syndrome, unspecified; G40.909 Epilepsy, unspecified, not intractable, without status epilepticus; E03.9 Hypothyroidism, unspecified
CPT/HCPCS: 17250; 97602

== ENCOUNTER 2019-06-17 13:39 | Outpatient (CLI) | payer MEDICARE, OTHER, MEDICAID ==
--- NOTE | 2019-06-17 16:32 | MRI ---
EXAM: RIGHT FOOT MRI WITH AND WITHOUT IV CONTRAST: 06/17/19 HISTORY: Nonhealing ulcer on his third and fourth toes of the right foot for several months. There is abnormal T2 hyperintensity and T1 hypointensity involving particularly the proximal phalanx but also the middle phalanx of the third toe with surrounding soft tissue swelling and contrast enhan cement, evidence for osteomyelitis. No evidence for an associated drainable abscess. Nonspecific dors al soft tissue subcutaneous swelling, evidence for cellulitis/edema. Very subtle T2 hyperintensity an d enhancement in the distal phalanx of the second toe distally, possibly representing some mild nonsp ecific osteitis. Generalized degenerative and osteoarthrosis changes. IMPRESSION: Osteomyelitis involving the proximal and middle phalanges of the third toe. Probable nonspecific oste itis involving the distal aspect of the proximal phalanx and base of the middle phalanx of the second toe. No evidence of drainable abscess. Nonspecific dorsal subcutaneous fat stranding possibly edema or cellulitis. POS: [facility]
== END 2019-06-17 13:40 | disposition home or self-care (01) ==
LOC: BICMRI 13:39
PROVIDERS: ATTEND Family Medicine
DX: R60.0 Localized edema (principal); L53.9 Erythematous condition, unspecified; M86.9 Osteomyelitis, unspecified

== ENCOUNTER → 2019-06-23 | Day surgery (SDC) | payer MEDICARE, OTHER, MEDICAID ==
[~2019-06-23] MED LIST changes: +Heparin 1,000 UNITS/ML VIAL ONE; -Sodium Chloride 0.9% 15 ML NEB ONE
--- NOTE | 2019-06-23 10:10 | SPC ---
Ultrasound and Fluoroscopic guided left upper extremity PICC placement HISTORY: Osteomyelitis. Patient is long-term IV antibiotics. FINDINGS: Informed consent obtained prior to the procedure. An appropriate access site was determined with ultrasound guidance. The area was then meticulously pr epped and draped in usual sterile fashion. Skin overlying the left basilic vein anesthetized with 1% buffered lidocaine. Utilizing direct sonogr aphic guidance, vascular access is obtained via the left basilic vein, and an 0.018in guidewire was advanced to the distal SVC. Intravascular length is calculated at 41 cm, and the PICC is cut accordin gly. Needle is removed and replaced with a peel-away sheath. The PICC was advanced over the wire. Wire and peel-away sheath were removed. The tip of the catheter overlies the distal SVC. The catheter was accessed and aspirated/flushed easily. Exposure data: 0 minutes of fluoroscopic time 352 mGy centimeter squared FINDINGS: Technically successful placement of a 41 centimeter single lumen 5 German left upper extremity PICC l ine. IMPRESSION: Successful ultrasound guided placement of a left upper extremity PICC.
== END ==
LOC: SPEC 08:29
PROVIDERS: ATTEND Internal Medicine Infectious Disease
PROC: 02HV33Z Insertion of Infusion Device into Superior Vena Cava, Percutaneous Approach (ICD-10-PCS; principal; 2019-06-23)
DX: M86.9 Osteomyelitis, unspecified (principal); Z88.1 Allergy status to other antibiotic agents; Z91.02 Food additives allergy status; Z91.048 Other nonmedicinal substance allergy status
CPT/HCPCS: 36569; C1751; J1644

== ENCOUNTER 2019-06-28 08:55 | Outpatient (CLI) | payer MEDICARE, OTHER, MEDICAID ==
--- NOTE | 2019-06-28 10:14 | PRG ---
DATE OF SERVICE: 06/28/2019 HISTORY: Mr. Seferino Bryson is a very pleasant 58-year-old gentleman, accompanied by his father, who presents to the Wound Center for evaluation of an ulceration over the right lateral third toe. Since the patient's last visit, Mr. Bryson has undergone PICC line placement and is receiving IV antibiotics as per Dr. Miguel Jackson of Infectious Diseases for osteomyelitis. For the ulceration over the right lateral third toe, the patient has been receiving dressing changes of Multidex powder with the assistance of his father. The patient has no complaints today. He denies any fever or chills. PHYSICAL EXAMINATION: VITAL SIGNS: Temperature 98.1, pulse 92, respirations 21, and blood pressure 112/68. EXTREMITIES: An ulceration over the right lateral third toe is present and measures approximately 0.8 x 0.8 cm. The dimensions of the wound at the time of the patient's last visit were approximately 1.6 x 1.5 cm. Hypergranulation is present within the wound margins. No tendon is visible within the wound margins on exam today. No purulent drainage is associated with the wound. No maceration of the skin of the periwound is noted. Erythema of the right great toe is present on exam today. ASSESSMENT AND PLAN: 1. Ulceration of right lateral third toe as described above. Dressing changes of Multidex powder and gauze will be continued on a daily basis after cleansing and irrigation. The patient's father will continue to assist the patient with his dressing changes. As stated above, the patient is receiving IV antibiotics as per Dr. Miguel Jackson for osteomyelitis. I will see Mr. Bryson again in 2 weeks. 2. 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 4. Epilepsy. 5. Hypothyroidism. Job ID: [id number]
[2019-06-28] MEDS ORDERED: Sodium Chloride 0.9% 15 ML NEB ONE (17:00)
== END 2019-06-28 08:56 | disposition home or self-care (01) ==
LOC: WCC 08:55
PROVIDERS: ATTEND Family Medicine
DX: L97.519 Non-pressure chronic ulcer of other part of right foot with unspecified severity (principal); M86.9 Osteomyelitis, unspecified; I89.0 Lymphedema, not elsewhere classified; Q98.4 Klinefelter syndrome, unspecified; G40.909 Epilepsy, unspecified, not intractable, without status epilepticus; E03.9 Hypothyroidism, unspecified
CPT/HCPCS: 97602; A4218

== ENCOUNTER 2019-07-12 10:38 | Outpatient (CLI) | payer MEDICARE, OTHER, MEDICAID ==
--- NOTE | 2019-07-12 12:16 | PRG ---
DATE OF SERVICE: 07/12/2019 HISTORY: Mr. Seferino Bryson is a very pleasant 58-year-old gentleman, accompanied by his father, who [facility] evaluation of an ulceration over the right lateral third toe. The patient is receiving IV antibiotics as per Dr. Miguel Jackson of Infectious Diseases for osteomyelitis. The patient's father states that Mr. Bryson will be receiving IV antibiotics for approximately 3 more weeks. For the ulceration over the right lateral third toe, the patient has been receiving dressing changes of Multidex powder with the assistance of his father. The patient has no complaints today. He denies any fever or chills. PHYSICAL EXAMINATION: VITAL SIGNS: Temperature 97.5, pulse 71, respirations 20, blood pressure 111/71. EXTREMITIES: The ulceration over the right lateral third toe measures approximately 0.5 x 0.4 cm. The dimensions of the wound at the time of the patient's last visit were approximately 0.8 x 0.8 cm. Granulation tissue is present within the wound margins. No tendon is visible within the wound margins on exam today. No purulent drainage is associated with the wound. No erythema of the skin surrounding the wound is present. No maceration of the skin of the periwound is noted. ASSESSMENT AND PLAN: 1. Ulceration of right lateral third toe as described above. Dressing changes of Multidex powder and gauze will be continued on a daily basis after cleansing and irrigation. The patient's father will continue to assist the patient with his dressing changes. As stated above, the patient is receiving IV antibiotics as per Dr. Miguel Jackson for osteomyelitis and will be receiving IV antibiotics for approximately 3 more weeks. I will see Mr. Bryson again in 2 weeks. 2. 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 4. Epilepsy. 5. Hypothyroidism. Job ID: [id number]
== END 2019-07-12 10:39 | disposition home or self-care (01) ==
LOC: WCC 10:38
PROVIDERS: ATTEND Family Medicine
DX: L97.519 Non-pressure chronic ulcer of other part of right foot with unspecified severity (principal); I89.0 Lymphedema, not elsewhere classified; G40.909 Epilepsy, unspecified, not intractable, without status epilepticus; E03.9 Hypothyroidism, unspecified; Q98.4 Klinefelter syndrome, unspecified; F79 Unspecified intellectual disabilities
CPT/HCPCS: 97602

== ENCOUNTER 2019-07-26 11:37 | Outpatient (CLI) | payer MEDICARE, OTHER, MEDICAID ==
[~2019-07-26 11:37] MED LIST changes: -Heparin 1,000 UNITS/ML VIAL ONE; +Sodium Chloride 0.9% 15 ML NEB ONE
--- NOTE | 2019-07-26 16:19 | PRG ---
DATE OF SERVICE: 07/26/2019 HISTORY: Mr. Seferino Bryson is a very pleasant 58-year-old gentleman, accompanied by his father, who presents to the wound center for evaluation of an ulceration over the right lateral third toe. The patient is receiving IV antibiotics as per Dr. Miguel Jackson of Infectious Diseases for osteomyelitis. For the ulceration over the right lateral third toe, the patient has been receiving dressing changes of Multidex powder with the assistance of his father. The patient has no complaints today. He denies any fever or chills. PHYSICAL EXAMINATION: VITAL SIGNS: Temperature 98.2, pulse 81, and blood pressure 112/71. EXTREMITIES: The ulceration over the right lateral third toe measures approximately 0.7 x 0.3 cm. The entire wound bed is covered by dry stable eschar. No serous or purulent drainage is associated with the wound. No erythema of the skin surrounding the wound is present. No maceration of the skin of the periwound is noted. ASSESSMENT AND PLAN: 1. Ulceration of right lateral third toe as described above. The patient's father has been instructed to keep the wound clean and dry and covered until the wound has healed completely. Multidex powder at the time of dressing changes will be discontinued. As stated above, the patient is receiving IV antibiotics as per Dr. Miguel Jackson for osteomyelitis. The ulceration has almost healed completely and Mr. Bryson will be discharged from clinic today with followup on a p.r.n. basis. The patient's father understands and is in agreement with the preceding treatment plan. 2. 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 4. Epilepsy. 5. Hypothyroidism. Job ID: [id number]
== END 2019-07-26 11:38 | disposition home or self-care (01) ==
LOC: WCC 11:37
PROVIDERS: ATTEND Family Medicine
DX: L97.519 Non-pressure chronic ulcer of other part of right foot with unspecified severity (principal); I89.0 Lymphedema, not elsewhere classified; Q98.4 Klinefelter syndrome, unspecified; F79 Unspecified intellectual disabilities; G40.909 Epilepsy, unspecified, not intractable, without status epilepticus; E03.9 Hypothyroidism, unspecified
CPT/HCPCS: A4218